=== PATIENT | male | born 1935 | race Caucasian/White ===

== ENCOUNTER 2019-05-13 12:09 | Emergency (ER) | payer MEDICARE, OTHER ==
--- NOTE | 2019-05-13 13:39 | EDM.PDOC ---
ED HPI GENERAL MEDICAL PROBLEM - General Chief Complaint: Lower Extremity Injury/Pain Stated Complaint: FELL AND HURT RT LEG Time Seen by Provider: 05/13/19 13:10 Source of Information: Reports: Patient History Limitations: Reports: No Limitations - History of Present Illness INITIAL COMMENTS - FREE TEXT/NARRATIVE: 84-year-old presents with right ankle pain after mechanical fall. 3 days ago he was walking out of his home when he slipped on the ice and fell down several steps onto the floor ground. He did have head strike when he fell. He landed on his right ankle and reports severe ongoing pain in the right ankle for the last 3 days. The pain is worse with any kind of movement, he has been hobbling around on occasion. He denies any LOC. He does have some neck pain. He is on any blood thinners. No abdominal pain or shortness of breath. Right Lower Leg Pain Score (Numeric/FACES): 6 - Related Data Allergies Allergy/AdvReac Type Severity Reaction Status Date / Time codeine Allergy Severe Fever Verified 05/13/19 12:38 Sulfa (Sulfonamide Allergy Severe Rash Verified 05/13/19 12:38 Antibiotics) Home Meds: Home Meds Aspirin 81 mg PO DAILY 05/13/19 [History] Carvedilol [Coreg] 6.25 mg PO BID 05/13/19 [History] Citalopram [Citalopram HBr] 20 mg PO DAILY 05/13/19 [History] Cyanocobalamin (Vitamin B-12) [Vitamin B-12] 500 mcg PO DAILY 05/13/19 [History] Ferrous Gluconate 324 mg PO DAILY 05/13/19 [History] Finasteride 5 mg PO DAILY 05/13/19 [History] Furosemide [Lasix] 20 mg PO BID 05/13/19 [History] Glimepiride [Amaryl] 1 mg PO WITHBREAKFAST 05/13/19 [History] Hydrocortisone [Hydrocortisone 2.5% Crm] 30 gm .XX BID PRN 05/13/19 [History] Meclizine [Antivert] 25 mg PO DAILY 05/13/19 [History] Multivitamin [Multivitamins] 1 each PO DAILY 05/13/19 [History] Nitroglycerin [Nitrostat] 0.4 mg SL ASDIRECTED 05/13/19 [History] Omeprazole 20 mg PO ACBREAKFAST 05/13/19 [History] Ondansetron HCl [Ondansetron] 4 mg PO Q8HR PRN 05/13/19 [History] Sertraline [Zoloft] 100 mg PO DAILY 05/13/19 [History] Past Medical History HEENT History: Reports: Impaired Vision Cardiovascular History: Reports: Angina, Bypass, Hypertension, Pacemaker, SOB on Exertion, Other (See Below) Other Cardiovascular History: leaking valves Respiratory History: Reports: SOB Genitourinary History: Reports: Prostate Disorder, Urinary Incontinence Musculoskeletal History: Reports: Back Pain, Chronic Neurological History: Reports: Concussion Endocrine/Metabolic History: Reports: Diabetes, Type II Dermatologic History: Reports: Other (See Below) Other Dermatologic History: dermatitis - Infectious Disease History Infectious Disease History: Reports: Chicken Pox, Measles, Mumps - Past Surgical History HEENT Surgical History: Reports: Tonsillectomy Cardiovascular Surgical History: Reports: Coronary Artery Bypass GI Surgical History: Reports: Appendectomy, Harjit Fundoplication Social & Family History - Tobacco Use Smoking Status *Q: Never Smoker - Caffeine Use Caffeine Use: Reports: Coffee - Recreational Drug Use Recreational Drug Use: No Review of Systems - Review of Systems Review Of Systems: See Below Constitutional: Reports: No Symptoms Eyes: Reports: No Symptoms Ears: Reports: No Symptoms Nose: Reports: No Symptoms Mouth/Throat: Reports: No Symptoms Respiratory: Reports: No Symptoms Cardiovascular: Reports: No Symptoms GI/Abdominal: Reports: No Symptoms Genitourinary: Reports: No Symptoms Musculoskeletal: Reports: Neck Pain, Other (ankle pain) Skin: Reports: No Symptoms Neurological: Reports: No Symptoms Psychiatric: Reports: No Symptoms ED EXAM, GENERAL - Physical Exam Exam: See Below Exam Limited By: No Limitations General Appearance: Alert, No Apparent Distress Ears: Normal External Exam Nose: Normal Inspection Throat/Mouth: Normal Inspection Head: Atraumatic, Normocephalic Neck: Normal Inspection, Tender Midline Respiratory/Chest: No Respiratory Distress, Lungs Clear Cardiovascular: Regular Rate, Rhythm GI/Abdominal: Soft, Non-Tender Back Exam: Normal Inspection Extremities: Other (left leg normal. Swollen right ankle with eccyhmosis, no deformity. Distal CSM intact) Course - Vital Signs Last Recorded V/S: Last Vital Signs Temp 36.2 C 05/13/19 12:33 Pulse 82 05/13/19 12:33 Resp 16 05/13/19 12:33 BP 138/87 05/13/19 12:33 Pulse Ox 97 05/13/19 12:33 - Re-Assessments/Exams Free Text/Narrative Re-Assessment/Exam: 84 yo presents with concerns of R ankle pain after mechanical fall down several steps 3 days ago. Swollen right ankle, has been unable to bear weight. Suspect fracture Does have midline c spine tenderness on exam. Give this and headstrike during fall will obtain CT head and neck 05/13/19 13:40 Free Text/Narrative Re-Assessment/Exam: XR R ankle shows minimally displaced distal fibula fracture, knee XR on this side negative Head and neck CT negative Extremity splinted Has crutches at home and feels comfortable/safe using these Apap/ibuprofen for pain Ortho referral placed 05/13/19 15:56 Departure - Departure Time of Disposition: 15:59 Disposition: Home, Self-Care 01 Condition: Good Clinical Impression: Fibula fracture Qualifiers: Encounter type: initial encounter Fibula location: distal Fracture type: closed Fracture morphology: unspecified fracture morphology Laterality: right Qualified Code(s): S82.831A - Other fracture of upper and lower end of right fibula, initial encounter for closed fracture - Discharge Information Referrals: PCP,None [Primary Care Provider] - Forms: ED Department Discharge Additional Instructions: Please follow-up in the orthopedic clinic next week, they should contact you to arrange this. Take Tylenol and ibuprofen for pain. Please return to the ER for worsening symptoms, particularly if your pain worsens.
--- NOTE | 2019-05-13 14:26 | CRLCR ---
Indication: Fall with ankle pain Technique: Three views right ankle Comparison: None Findings: Bones: Minimally displaced oblique fracture through the distal diaphysis of the right fibula. Joint spaces: Unremarkable. Soft tissues: Surgical kuldeep along the medial aspect of the right lower leg. Impression: Minimally displaced oblique fracture through the distal diaphysis of the right fibula. Dictated by Taylor Narvaez MD @ May 13 2019 2:18PM Signed by Dr. Taylor Narvaez @ May 13 2019 2:25PM
--- NOTE | 2019-05-13 14:52 | CRLCT ---
INDICATION: fall, neck pain CT CERVICAL SPINE WITHOUT CONTRAST TECHNIQUE: Multidetector axial CT imaging was performed through the cervical spine, without contrast. Sagittal and coronal reconstructions were generated. FINDINGS: No acute fractures are identified. Multilevel degenerative change is noted in the cervical spine, including diffuse degenerative disc disease, greatest at C5-6 and C6-7, and scattered facet joint degenerative changes. Osseous alignment is within normal limits and no subluxation is seen. Prevertebral soft tissues are unremarkable. Included portions of the airway and lung apices are within normal limits. IMPRESSION: 1. No fracture, subluxation, or other acute finding identified. 2. Cervical spondylosis, as noted above. RUBEN ANDREA MD [facility] Dictated by: Ashish Andrea MD @ 05/13/2019 14:52:16 (Electronically Signed)
--- NOTE | 2019-05-13 14:52 | CRLCT ---
INDICATION: FALL CT HEAD WITHOUT CONTRAST TECHNIQUE: Multiple axial CT images were performed through the head without intravenous contrast administration. COMPARISON: No previous studies are currently available for comparison. FINDINGS: No acute intracranial hemorrhage is identified. No extra-axial collections are evident and there is no mass effect or midline shift. There is mild diffuse age-related brain atrophy. Ventricular size and configuration are within normal limits for the patient`s age. Lloyd-white differentiation is within normal limits. There is patchy hypodensity in the periventricular white matter, a nonspecific finding which most likely reflects chronic small vessel ischemic change. Osseous structures are within normal limits and no fractures are seen. Included portions of the paranasal sinuses and mastoid air cells are normally aerated. IMPRESSION: 1. No acute intracranial abnormality identified. 2. Mild age-related brain atrophy and white matter hypodensity consistent with chronic small vessel ischemic change. RUBEN ANDREA MD [facility] Dictated by: Ashish Andrea MD @ 05/13/2019 14:51:40 (Electronically Signed)
--- NOTE | 2019-05-13 15:28 | CRLCR ---
Indication: Fall, pain Technique: Two views right knee Comparison: None Findings: Bones: Alignment is normal. No fractures or bone lesions. Mild enthesophyte formation on the superior and inferior aspects of the patella. Joint spaces: Unremarkable. Soft tissues: Unremarkable. Impression: No acute fracture or subluxation. Dictated by Taylor Narvaez MD @ May 13 2019 3:25PM Signed by Dr. Taylor Narvaez @ May 13 2019 3:25PM
[2019-05-13] MEDS ORDERED: Acetaminophen 325 MG Tab PO ONE (16:02)
[2019-05-13] MEDS ORDERED: Ibuprofen 400 MG Tab PO ONE (16:02)
== END 2019-05-13 17:08 | disposition home or self-care (01) ==
LOC: JP.ED 12:09
DX: S82.831A Other fracture of upper and lower end of right fibula, initial encounter for closed fracture (principal); E11.9 Type 2 diabetes mellitus without complications; I10 Essential (primary) hypertension; Z95.5 Presence of coronary angioplasty implant and graft; Z88.5 Allergy status to narcotic agent; Z88.2 Allergy status to sulfonamides; Z79.82 Long term (current) use of aspirin; Z79.84 Long term (current) use of oral hypoglycemic drugs; W00.9XXA Unspecified fall due to ice and snow, initial encounter; Y92.89 Other specified places as the place of occurrence of the external cause; Y93.01 Activity, walking, marching and hiking
CPT/HCPCS: 29515; 70450; 72125; 73560; 73610; 99284; A9270

== ENCOUNTER 2019-08-02 13:22 | Inpatient (IN) | payer MEDICARE, OTHER ==
--- NOTE | 2019-08-02 14:53 | EDM.PDOC ---
ED HPI GENERAL MEDICAL PROBLEM - General Chief Complaint: Respiratory Problem Stated Complaint: FEELING UNWELL, BP LOW, O2 LOW Time Seen by Provider: 08/02/19 13:40 Source of Information: Reports: Patient History Limitations: Reports: No Limitations - History of Present Illness INITIAL COMMENTS - FREE TEXT/NARRATIVE: pt arrived completley exhausted with poor exercise tolerance. He has been coughing and sob for 3-4 weeks. Onset: Gradual, Other ( 3-4 weeks. ) Duration: Hour(s): Location: Reports: Chest, Generalized Associated Symptoms: Reports: Cough, Diaphoresis, Shortness of Breath - Related Data Allergies Allergy/AdvReac Type Severity Reaction Status Date / Time codeine Allergy Severe Fever Verified 08/02/19 13:41 Sulfa (Sulfonamide Allergy Severe Rash Verified 08/02/19 13:41 Antibiotics) Home Meds: Home Meds Aspirin 81 mg PO DAILY 05/13/19 [History] Citalopram [Citalopram HBr] 20 mg PO DAILY 05/13/19 [History] Cyanocobalamin (Vitamin B-12) [Vitamin B-12] 500 mcg PO DAILY 05/13/19 [History] Ferrous Gluconate 324 mg PO DAILY 05/13/19 [History] Finasteride 5 mg PO DAILY 05/13/19 [History] Furosemide [Lasix] 20 mg PO BID 05/13/19 [History] Glimepiride [Amaryl] 1 mg PO WITHBREAKFAST 05/13/19 [History] Hydrocortisone [Hydrocortisone 2.5% Crm] 30 gm .XX BID PRN 05/13/19 [History] Meclizine [Antivert] 25 mg PO DAILY 05/13/19 [History] Multivitamin [Multivitamins] 1 each PO DAILY 05/13/19 [History] Nitroglycerin [Nitrostat] 0.4 mg SL ASDIRECTED 05/13/19 [History] Omeprazole 20 mg PO ACBREAKFAST 05/13/19 [History] Sertraline [Zoloft] 100 mg PO DAILY 05/13/19 [History] carvediloL [Coreg] 6.25 mg PO BID 05/13/19 [History] ondansetron HCL [Ondansetron] 4 mg PO Q8HR PRN 05/13/19 [History] Hydrocortisone [Hydrocortisone 2.5% Crm] 30 gm TOP BID #1 tube 05/31/19 [Rx] Isosorbide Mononitrate 30 mg PO DAILY 08/02/19 [History] Past Medical History HEENT History: Reports: Impaired Vision Cardiovascular History: Reports: Angina, Bypass, Hypertension, Pacemaker, SOB on Exertion, Other (See Below) Other Cardiovascular History: leaking valves Respiratory History: Reports: SOB Genitourinary History: Reports: Prostate Disorder, Urinary Incontinence Musculoskeletal History: Reports: Back Pain, Chronic, Fracture, Other (See Below ) Other Musculoskeletal History: R fib Fx 05/13/19 Neurological History: Reports: Concussion Psychiatric History: Reports: None Endocrine/Metabolic History: Reports: Diabetes, Type II Hematologic History: Reports: None Immunologic History: Reports: None Oncologic (Cancer) History: Reports: None Dermatologic History: Reports: Other (See Below) Other Dermatologic History: dermatitis - Infectious Disease History Infectious Disease History: Reports: Chicken Pox, Measles, Mumps - Past Surgical History Head Surgeries/Procedures: Reports: None HEENT Surgical History: Reports: Tonsillectomy Cardiovascular Surgical History: Reports: Coronary Artery Bypass GI Surgical History: Reports: Appendectomy, Harjit Fundoplication Musculoskeletal Surgical History: Reports: None Social & Family History - Tobacco Use Smoking Status *Q: Never Smoker - Caffeine Use Caffeine Use: Reports: Coffee - Recreational Drug Use Recreational Drug Use: No ED ROS GENERAL - Review of Systems Review Of Systems: See Below Constitutional: Reports: Malaise, Weakness HEENT: Reports: Other (p feels like something is caught in his throat area. ) Respiratory: Reports: Shortness of Breath, Wheezing Cardiovascular: Reports: No Symptoms, Other (pt does have a pacemaker and has had a coronary by pass. ) Endocrine: Reports: No Symptoms GI/Abdominal: Reports: No Symptoms : Reports: No Symptoms Musculoskeletal: Reports: No Symptoms Skin: Reports: No Symptoms Neurological: Reports: No Symptoms Psychiatric: Reports: No Symptoms ED EXAM, GENERAL - Physical Exam Exam: See Below Free Text/Narrative:: pt arrived with a history of marked sob and very poor exercise tolerance. Exam Limited By: No Limitations General Appearance: Alert, Anxious, Mild Distress Ears: Normal TMs Nose: Normal Inspection Throat/Mouth: Normal Inspection Head: Atraumatic Neck: Other (neck veins prominent) Respiratory/Chest: Decreased Breath Sounds, Rales, Wheezing Cardiovascular: Regular Rate, Rhythm GI/Abdominal: Soft, Non-Tender (Male) Exam: Deferred Rectal (Males) Exam: Deferred Back Exam: Normal Inspection Extremities: Other (pt has 1 plus edema. ) Neurological: Alert, Oriented, Normal Cognition Psychiatric: Normal Affect Course - Vital Signs Last Recorded V/S: Last Vital Signs Temp 35.9 C 08/02/19 13:25 Pulse 87 08/02/19 16:55 Resp 25 H 08/02/19 16:55 BP 114/77 08/02/19 16:55 Pulse Ox 98 08/02/19 16:55 - Orders/Labs/Meds Orders: Active Orders 24 hr Category Date Time Status EKG Documentation Completion [RC] ASDIRECTED Care 08/02/19 17:06 Ordered RT Aerosol Therapy [RC] ASDIRECTED Care 08/02/19 15:45 Active TROPONIN I [CHEM] Stat Lab 08/02/19 17:04 Ordered Sodium Chloride 0.9% [Saline Flush] Med 08/02/19 15:46 Active 10 ml FLUSH ASDIRECTED PRN Saline Lock Insert [OM.PC] Routine Oth 08/02/19 15:46 Ordered EKG 12 Lead [EK] Routine Ther 08/02/19 17:06 Ordered Medication Orders Sodium Chloride (Saline Flush) 10 ml FLUSH ASDIRECTED PRN PRN Reason: Keep Vein Open Last Admin: 08/02/19 16:14 Dose: 10 ml Labs: Laboratory Tests 08/02/19 08/02/19 08/02/19 Range/Units 14:27 14:27 14:27 WBC 6.6 (4.5-11.0) K/uL RBC 4.41 (4.30-5.90) M/uL Hgb 12.7 (12.0-15.0) g/dL Hct 40.5 (40.0-54.0) % MCV 92 (80-98) fL MCH 29 (27-31) pg MCHC 31 L (32-36) % Plt Count 167 (150-400) K/uL Neut % (Auto) 75 H (36-66) % Lymph % (Auto) 12 L (24-44) % [place] % (Auto) 7 H (2-6) % Eos % (Auto) 5 H (2-4) % Baso % (Auto) 1 (0-1) % D-Dimer, Quantitative 1060 H (0.0-400.0) ng/mL Sodium 140 (140-148) mmol/L Potassium 4.3 (3.6-5.2) mmol/L Chloride 103 (100-108) mmol/L Carbon Dioxide 26 (21-32) mmol/L Anion Gap 10.6 (5.0-14.0) mmol/L BUN 27 H (7-18) mg/dL Creatinine 1.6 H (0.8-1.3) mg/dL Est Cr Clr Drug Dosing 30.46 mL/min Estimated GFR (MDRD) 41 L (>60) Glucose 163 H (74-106) mg/dL Calcium 8.8 (8.5-10.1) mg/dL Total Bilirubin 1.0 (0.2-1.0) mg/dL AST 35 (15-37) U/L ALT 43 (12-78) U/L Alkaline Phosphatase 100 (46-116) U/L NT-Pro-B Natriuret Pep (5-450) pg/mL Total Protein 7.0 (6.4-8.2) g/dL Albumin 3.3 L (3.4-5.0) g/dL Globulin 3.7 H (2.3-3.5) g/dL Albumin/Globulin Ratio 0.9 L (1.2-2.2) TSH, Ultra Sensitive (0.358-3.740) uIU/mL Urine Color (YELLOW) Urine Appearance (CLEAR) Urine pH (5.0-8.0) Ur Specific Silver (1.008-1.030) Urine Protein (NEGATIVE) mg/dL Urine Glucose (UA) (NEGATIVE) mg/dL Urine Ketones (NEGATIVE) mg/dL Urine Occult Blood (NEGATIVE) Urine Nitrite (NEGATIVE) Urine Bilirubin (NEGATIVE) Urine Urobilinogen (0.2-1.0) EU/dL Ur Leukocyte Esterase (NEGATIVE) Urine RBC (0-5) Urine WBC (0-5) Ur Epithelial Cells Amorphous Sediment Urine Bacteria Urine Mucus 08/02/19 08/02/19 08/02/19 Range/Units 14:52 15:28 15:44 WBC (4.5-11.0) K/uL RBC (4.30-5.90) M/uL Hgb (12.0-15.0) g/dL Hct (40.0-54.0) % MCV (80-98) fL MCH (27-31) pg MCHC (32-36) % Plt Count (150-400) K/uL Neut % (Auto) (36-66) % Lymph % (Auto) (24-44) % [place] % (Auto) (2-6) % Eos % (Auto) (2-4) % Baso % (Auto) (0-1) % D-Dimer, Quantitative (0.0-400.0) ng/mL Sodium (140-148) mmol/L Potassium (3.6-5.2) mmol/L Chloride (100-108) mmol/L Carbon Dioxide (21-32) mmol/L Anion Gap (5.0-14.0) mmol/L BUN (7-18) mg/dL Creatinine (0.8-1.3) mg/dL Est Cr Clr Drug Dosing mL/min Estimated GFR (MDRD) (>60) Glucose (74-106) mg/dL Calcium (8.5-10.1) mg/dL Total Bilirubin (0.2-1.0) mg/dL AST (15-37) U/L ALT (12-78) U/L Alkaline Phosphatase (46-116) U/L NT-Pro-B Natriuret Pep 2708 H (5-450) pg/mL Total Protein (6.4-8.2) g/dL Albumin (3.4-5.0) g/dL Globulin (2.3-3.5) g/dL Albumin/Globulin Ratio (1.2-2.2) TSH, Ultra Sensitive 2.741 (0.358-3.740) uIU/mL Urine Color Yellow (YELLOW) Urine Appearance Clear (CLEAR) Urine pH 5.0 (5.0-8.0) Ur Specific Silver 1.020 (1.008-1.030) Urine Protein Negative (NEGATIVE) mg/dL Urine Glucose (UA) Negative (NEGATIVE) mg/dL Urine Ketones Negative (NEGATIVE) mg/dL Urine Occult Blood Negative (NEGATIVE) Urine Nitrite Negative (NEGATIVE) Urine Bilirubin Negative (NEGATIVE) Urine Urobilinogen 0.2 (0.2-1.0) EU/dL Ur Leukocyte Esterase Negative (NEGATIVE) Urine RBC 0-5 (0-5) Urine WBC 0-5 (0-5) Ur Epithelial Cells Few Amorphous Sediment Not seen Urine Bacteria Not seen Urine Mucus Few Meds: Medications Generic Name Dose Route Start Last Admin Trade Name Freq PRN Reason Stop Dose Admin Sodium Chloride 10 ml 08/02/19 15:46 08/02/19 16:14 Saline Flush FLUSH 10 ml ASDIRECTED PRN Administration Keep Vein Open Discontinued Medications Generic Name Dose Route Start Last Admin Trade Name Freq PRN Reason Stop Dose Admin Albuterol 2.5 mg 08/02/19 15:45 08/02/19 16:13 Proventil Neb Soln NEB 08/02/19 15:46 2.5 mg ONETIME ONE Administration Furosemide 40 mg 08/02/19 15:46 08/02/19 16:13 Lasix IVPUSH 08/02/19 15:47 40 mg ONETIME ONE Administration - Re-Assessments/Exams Free Text/Narrative Re-Assessment/Exam: 08/02/19 17:11 pt has a elevated bnp. He was given lasix. he has a gallop when he is listened to. He has a normal wbc. Departure - Departure Time of Disposition: 17:15 Disposition: Admitted As Inpatient 65 Condition: Fair Clinical Impression: Fluid overload, Elevated d-dimer, Weakness - Discharge Information Referrals: PCP,None [Primary Care Provider] - Forms: ED Department Discharge Care Plan Goals: admit to Dr Zarate. Sepsis Event Note - Evaluation Sepsis Screening Result: No Definite Risk - Focused Exam Vital Signs: Vital Signs Temp Pulse Pulse Resp BP Pulse Ox 08/02/19 16:55 87 25 H 114/77 98 08/02/19 16:09 84 26 H 125/87 89 L 08/02/19 15:29 96 32 H 137/84 92 L 08/02/19 13:25 35.9 C 90 20 105/70 94 L Date Exam was Performed: 08/02/19 Time Exam was Performed: 17:06 - My Orders Last 24 Hours: My Active Orders 08/02/19 15:45 RT Aerosol Therapy [RC] ASDIRECTED 08/02/19 15:46 Sodium Chloride 0.9% [Saline Flush] 10 ml FLUSH ASDIRECTED PRN Saline Lock Insert [OM.PC] Routine 08/02/19 17:04 TROPONIN I [CHEM] Stat 08/02/19 17:06 EKG Documentation Completion [RC] ASDIRECTED EKG 12 Lead [EK] Routine - Assessment/Plan Last 24 Hours: My Active Orders 08/02/19 15:45 RT Aerosol Therapy [RC] ASDIRECTED 08/02/19 15:46 Sodium Chloride 0.9% [Saline Flush] 10 ml FLUSH ASDIRECTED PRN Saline Lock Insert [OM.PC] Routine 08/02/19 17:04 TROPONIN I [CHEM] Stat 08/02/19 17:06 EKG Documentation Completion [RC] ASDIRECTED EKG 12 Lead [EK] Routine
[2019-08-02] MEDS ORDERED: Albuterol 0.083% 2.5 MG/3 ML Neb Soln NEB ONE (15:45)
[2019-08-02] MEDS ORDERED: Sodium Chloride 0.9% 10 ML Syringe FLUSH PRN (15:46)
[2019-08-02] MEDS ORDERED: Furosemide 40 MG/4 ML VIAL IVPUSH ONE (15:46)
--- NOTE | 2019-08-02 16:00 | CRLCR ---
INDICATION: Shortness of breath and cough TECHNIQUE: Chest 2 views. COMPARISON: None FINDINGS: Cardiovascular and mediastinum: Heart size and vasculature are normal in caliber and appearance. Mediastinum is within normal limits. Sternotomy wires and left-sided transvenous pacer device. Lungs and pleural spaces: Lungs are clear. No sign of infiltrate or mass. No sign of pleural effusion. No pneumothorax. Bones and soft tissues: No significant findings. IMPRESSION: Unremarkable chest. Dictated by Virgil Gracia MD @ 08/02/2019 3:58:27 PM Dictated by: Virgil Gracia MD @ 08/02/2019 15:58:31 (Electronically Signed)
--- NOTE | 2019-08-02 18:30 | PCM.HP.2 ---
H&P History of Present Illness - General Date of Service: 08/02/19 Admit Problem/Dx: Admission Diagnosis/Problem Admission Diagnosis/Problem CHF, Congestive heart failure Source of Information: Patient, Provider History Limitations: Reports: No Limitations - History of Present Illness Initial Comments - Free Text/Narative: CC: I keep coughing HPI: Harpreet presents to the emergency room today from the orthopedic clinic with concerns of progressive shortness of breath, cough and weakness. He reports a cough of several months duration that he thought was may be related to dust in his house but after having most of the dust removed he continues to cough. He has had progressive dyspnea with exertion and is now short of breath with most any activity. He reports orthopnea. He does have some chest tightness which happens both at rest and with activity. This is relieved by nitroglycerin spray. He has been using the nitroglycerin several times per week over the past month. He does not report actual chest pain, he just feels tight in the chest. He has noticed mild lower extremity edema which is a little worse recently. The right leg is more swollen than the left. No fevers or chills. His appetite and energy are decreased compared to where things were a few months ago. His weight has been relatively stable. No nausea, abdominal pain or change in bowel habits. He does have occasional incontinence that he blames on his enlarged prostate. He has had progressive weakness and increasing difficulty performing ADLs though he is still able to function at home. Work-up in the emergency room revealed stage III chronic kidney disease but otherwise labs were fairly unremarkable. Examination remarkable for concern regarding congestive heart failure. He has received a nebulizer and furosemide. He will be admitted for further management. - Related Data Allergies/Adverse Reactions: Allergies Allergy/AdvReac Type Severity Reaction Status Date / Time codeine Allergy Severe Fever Verified 08/02/19 13:41 Sulfa (Sulfonamide Allergy Severe Rash Verified 08/02/19 13:41 Antibiotics) Home Medications: Home Meds Aspirin 81 mg PO DAILY 05/13/19 [History] Cyanocobalamin (Vitamin B-12) [Vitamin B-12] 500 mcg PO DAILY 05/13/19 [History] Ferrous Gluconate 324 mg PO DAILY 05/13/19 [History] Finasteride 5 mg PO DAILY 05/13/19 [History] Furosemide [Lasix] 20 mg PO BID 05/13/19 [History] Glimepiride [Amaryl] 1 mg PO WITHBREAKFAST 05/13/19 [History] Hydrocortisone [Hydrocortisone 2.5% Crm] 30 gm .XX BID PRN 05/13/19 [History] Meclizine [Antivert] 25 mg PO DAILY 05/13/19 [History] Multivitamin [Multivitamins] 1 each PO DAILY 05/13/19 [History] Nitroglycerin [Nitrostat] 0.4 mg SL ASDIRECTED 05/13/19 [History] Omeprazole 20 mg PO ACBREAKFAST 05/13/19 [History] Sertraline [Zoloft] 100 mg PO DAILY 05/13/19 [History] carvediloL [Coreg] 6.25 mg PO BID 05/13/19 [History] ondansetron HCL [Ondansetron] 4 mg PO Q8HR PRN 05/13/19 [History] Hydrocortisone [Hydrocortisone 2.5% Crm] 30 gm TOP BID #1 tube 05/31/19 [Rx] Isosorbide Mononitrate 30 mg PO DAILY 08/02/19 [History] Past Medical History HEENT History: Reports: Impaired Vision Cardiovascular History: Reports: Angina, Bypass, Hypertension, Pacemaker, SOB on Exertion, Other (See Below) Other Cardiovascular History: leaking valves Respiratory History: Reports: SOB Genitourinary History: Reports: Prostate Disorder, Urinary Incontinence Musculoskeletal History: Reports: Back Pain, Chronic, Fracture, Other (See Below ) Other Musculoskeletal History: R fib Fx 05/13/19 Neurological History: Reports: Concussion Psychiatric History: Reports: None Endocrine/Metabolic History: Reports: Diabetes, Type II Hematologic History: Reports: None Immunologic History: Reports: None Oncologic (Cancer) History: Reports: None Dermatologic History: Reports: Other (See Below) Other Dermatologic History: dermatitis - Infectious Disease History Infectious Disease History: Reports: Chicken Pox, Measles, Mumps - Past Surgical History Head Surgeries/Procedures: Reports: None HEENT Surgical History: Reports: Tonsillectomy Cardiovascular Surgical History: Reports: Coronary Artery Bypass GI Surgical History: Reports: Appendectomy, Harjit Fundoplication Musculoskeletal Surgical History: Reports: None Social & Family History - Family History Cardiac: Reports: DC (father in his 50's) - Tobacco Use Smoking Status *Q: Never Smoker - Caffeine Use Caffeine Use: Reports: Coffee - Recreational Drug Use Recreational Drug Use: No H&P Review of Systems - Review of Systems: Review Of Systems: See Below Free Text/Narrative: A complete 12 point review of systems was obtained. Pertinent positives and negatives are noted in the history of present illness. All other systems were reviewed and were negative except as noted. Exam - Exam Exam: See Below - Vital Signs Vital Signs: Last Vital Signs Temp 35.9 C 08/02/19 13:25 Pulse 85 08/02/19 17:44 Resp 27 H 08/02/19 17:44 BP 123/81 08/02/19 17:44 Pulse Ox 89 L 08/02/19 17:44 Weight: 83.915 kg - Exam Quality Assessment: No: Supplemental Oxygen General: Alert, Oriented, Cooperative. No: Mild Distress HEENT: Conjunctiva Clear, Mucosa Moist & [place], Scleral Icterus Neck: Supple, Trachea Midline, JVD. No: Lymphadenopathy Lungs: Clear to Auscultation, Normal Respiratory Effort. No: Crackles, Wheezing Cardiovascular: Regular Rate, Regular Rhythm, Systolic Murmur, Gallop/S3 GI/Abdominal Exam: Normal Bowel Sounds, Soft, Non-Tender, No Distention, No Mass Back Exam: Normal Inspection, Full Range of Motion Extremities: Pedal Edema (mild edema both legs R>L). No: Ulysses's Sign, Increased Warmth Peripheral Pulses: 2+: Dorsalis Pedis (L), Dorsalis Pedis (R) Skin: Warm, Dry Neuro Extensive - Mental Status: Alert, Oriented x3, Nl Response to Commands Neuro Extensive - Motor, Sensory, Reflexes: No: Dysarthria, Abnormal Motor, Tremor Psychiatric: Alert, Normal Affect - Patient Data Lab Results Last 24 hrs: Laboratory Results - last 24 hr 08/02/19 08/02/19 08/02/19 Range/Units 14:27 14:27 14:27 WBC 6.6 (4.5-11.0) K/uL RBC 4.41 (4.30-5.90) M/uL Hgb 12.7 (12.0-15.0) g/dL Hct 40.5 (40.0-54.0) % MCV 92 (80-98) fL MCH 29 (27-31) pg MCHC 31 L (32-36) % Plt Count 167 (150-400) K/uL Neut % (Auto) 75 H (36-66) % Lymph % (Auto) 12 L (24-44) % [place] % (Auto) 7 H (2-6) % Eos % (Auto) 5 H (2-4) % Baso % (Auto) 1 (0-1) % D-Dimer, Quantitative 1060 H (0.0-400.0) ng/mL Sodium 140 (140-148) mmol/L Potassium 4.3 (3.6-5.2) mmol/L Chloride 103 (100-108) mmol/L Carbon Dioxide 26 (21-32) mmol/L Anion Gap 10.6 (5.0-14.0) mmol/L BUN 27 H (7-18) mg/dL Creatinine 1.6 H (0.8-1.3) mg/dL Est Cr Clr Drug Dosing 30.46 mL/min Estimated GFR (MDRD) 41 L (>60) Glucose 163 H (74-106) mg/dL Calcium 8.8 (8.5-10.1) mg/dL Total Bilirubin 1.0 (0.2-1.0) mg/dL AST 35 (15-37) U/L ALT 43 (12-78) U/L Alkaline Phosphatase 100 (46-116) U/L Troponin I (0.000-0.056) ng/mL NT-Pro-B Natriuret Pep (5-450) pg/mL Total Protein 7.0 (6.4-8.2) g/dL Albumin 3.3 L (3.4-5.0) g/dL Globulin 3.7 H (2.3-3.5) g/dL Albumin/Globulin Ratio 0.9 L (1.2-2.2) TSH, Ultra Sensitive (0.358-3.740) uIU/mL Urine Color (YELLOW) Urine Appearance (CLEAR) Urine pH (5.0-8.0) Ur Specific [place] (1.008-1.030) Urine Protein (NEGATIVE) mg/dL Urine Glucose (UA) (NEGATIVE) mg/dL Urine Ketones (NEGATIVE) mg/dL Urine Occult Blood (NEGATIVE) Urine Nitrite (NEGATIVE) Urine Bilirubin (NEGATIVE) Urine Urobilinogen (0.2-1.0) EU/dL Ur Leukocyte Esterase (NEGATIVE) Urine RBC (0-5) Urine WBC (0-5) Ur Epithelial Cells Amorphous Sediment Urine Bacteria Urine Mucus 08/02/19 08/02/19 08/02/19 Range/Units 14:27 14:52 15:28 WBC (4.5-11.0) K/uL RBC (4.30-5.90) M/uL Hgb (12.0-15.0) g/dL Hct (40.0-54.0) % MCV (80-98) fL MCH (27-31) pg MCHC (32-36) % Plt Count (150-400) K/uL Neut % (Auto) (36-66) % Lymph % (Auto) (24-44) % [place] % (Auto) (2-6) % Eos % (Auto) (2-4) % Baso % (Auto) (0-1) % D-Dimer, Quantitative (0.0-400.0) ng/mL Sodium (140-148) mmol/L Potassium (3.6-5.2) mmol/L Chloride (100-108) mmol/L Carbon Dioxide (21-32) mmol/L Anion Gap (5.0-14.0) mmol/L BUN (7-18) mg/dL Creatinine (0.8-1.3) mg/dL Est Cr Clr Drug Dosing mL/min Estimated GFR (MDRD) (>60) Glucose (74-106) mg/dL Calcium (8.5-10.1) mg/dL Total Bilirubin (0.2-1.0) mg/dL AST (15-37) U/L ALT (12-78) U/L Alkaline Phosphatase (46-116) U/L Troponin I < 0.017 (0.000-0.056) ng/mL NT-Pro-B Natriuret Pep 2708 H (5-450) pg/mL Total Protein (6.4-8.2) g/dL Albumin (3.4-5.0) g/dL Globulin (2.3-3.5) g/dL Albumin/Globulin Ratio (1.2-2.2) TSH, Ultra Sensitive (0.358-3.740) uIU/mL Urine Color Yellow (YELLOW) Urine Appearance Clear (CLEAR) Urine pH 5.0 (5.0-8.0) Ur Specific [place] 1.020 (1.008-1.030) Urine Protein Negative (NEGATIVE) mg/dL Urine Glucose (UA) Negative (NEGATIVE) mg/dL Urine Ketones Negative (NEGATIVE) mg/dL Urine Occult Blood Negative (NEGATIVE) Urine Nitrite Negative (NEGATIVE) Urine Bilirubin Negative (NEGATIVE) Urine Urobilinogen 0.2 (0.2-1.0) EU/dL Ur Leukocyte Esterase Negative (NEGATIVE) Urine RBC 0-5 (0-5) Urine WBC 0-5 (0-5) Ur Epithelial Cells Few Amorphous Sediment Not seen Urine Bacteria Not seen Urine Mucus Few 08/02/19 Range/Units 15:44 WBC (4.5-11.0) K/uL RBC (4.30-5.90) M/uL Hgb (12.0-15.0) g/dL Hct (40.0-54.0) % MCV (80-98) fL MCH (27-31) pg MCHC (32-36) % Plt Count (150-400) K/uL Neut % (Auto) (36-66) % Lymph % (Auto) (24-44) % [place] % (Auto) (2-6) % Eos % (Auto) (2-4) % Baso % (Auto) (0-1) % D-Dimer, Quantitative (0.0-400.0) ng/mL Sodium (140-148) mmol/L Potassium (3.6-5.2) mmol/L Chloride (100-108) mmol/L Carbon Dioxide (21-32) mmol/L Anion Gap (5.0-14.0) mmol/L BUN (7-18) mg/dL Creatinine (0.8-1.3) mg/dL Est Cr Clr Drug Dosing mL/min Estimated GFR (MDRD) (>60) Glucose (74-106) mg/dL Calcium (8.5-10.1) mg/dL Total Bilirubin (0.2-1.0) mg/dL AST (15-37) U/L ALT (12-78) U/L Alkaline Phosphatase (46-116) U/L Troponin I (0.000-0.056) ng/mL NT-Pro-B Natriuret Pep (5-450) pg/mL Total Protein (6.4-8.2) g/dL Albumin (3.4-5.0) g/dL Globulin (2.3-3.5) g/dL Albumin/Globulin Ratio (1.2-2.2) TSH, Ultra Sensitive 2.741 (0.358-3.740) uIU/mL Urine Color (YELLOW) Urine Appearance (CLEAR) Urine pH (5.0-8.0) Ur Specific [place] (1.008-1.030) Urine Protein (NEGATIVE) mg/dL Urine Glucose (UA) (NEGATIVE) mg/dL Urine Ketones (NEGATIVE) mg/dL Urine Occult Blood (NEGATIVE) Urine Nitrite (NEGATIVE) Urine Bilirubin (NEGATIVE) Urine Urobilinogen (0.2-1.0) EU/dL Ur Leukocyte Esterase (NEGATIVE) Urine RBC (0-5) Urine WBC (0-5) Ur Epithelial Cells Amorphous Sediment Urine Bacteria Urine Mucus Result Diagrams: 08/02/19 14:27 08/02/19 14:27 Imaging Impressions Last 24 hrs: CXR-images personally reviewed-lungs clear with no mass, infiltrate or effusion. Left sided pacer. Sternotomy wires. EKG INTERPRETATION EKG Date: 08/02/19 Rhythm: Other (ventricular paced) Rate (Beats/Min): 94 [place]: LAD-Left [place] Deviation P-Wave: Absent QRS: Normal ST-T: Normal QT: Normal Sepsis Event Note - Evaluation Sepsis Screening Result: No Definite Risk - Focused Exam Vital Signs: Vital Signs Temp Pulse Pulse Resp BP Pulse Ox 08/02/19 17:44 85 27 H 123/81 89 L 08/02/19 16:55 87 25 H 114/77 98 08/02/19 16:09 84 26 H 125/87 89 L 08/02/19 15:29 96 32 H 137/84 92 L 08/02/19 13:25 35.9 C 90 20 105/70 94 L Date Exam was Performed: 08/02/19 Time Exam was Performed: 18:36 *Q Meaningful Use (ADM) - VTE Risk Assess *Q Each Risk Factor Represents 1 Point: Swollen Legs, Current, Obesity ( BMI > 25 kg/m2), Congestive heart failure (CHF) Total Score 1 Point Risk Factors: 3 Each Risk Factor Represents 2 Points: None Total Score 2 Point Risk Factors: 0 Each Risk Factor Represents 3 Points: Age 75 Years or Greater Total Score 3 Point Risk Factors: 3 Each Risk Factor Represents 5 Points: None Total Score 5 Point Risk Factors: 0 Venous Thromboembolism Risk Factor Score *Q: 6 - Problem List (1) CHF (congestive heart failure), NYHA class III SNOMED Code(s): 609557783, 883244588 ICD Code: I50.9 - HEART FAILURE, UNSPECIFIED Status: Acute Current Visit : Yes Qualifiers: Congestive heart failure type: unspecified Qualified Code(s): I50.9 - Heart failure, unspecified (2) CKD (chronic kidney disease), stage III SNOMED Code(s): 712037480 ICD Code: N18.3 - CHRONIC KIDNEY DISEASE, STAGE 3 (MODERATE) Status: Chronic Current Visit: Yes (3) Diabetes mellitus type II, controlled SNOMED Code(s): 85736380, 952091377 ICD Code: E11.9 - TYPE 2 DIABETES MELLITUS WITHOUT COMPLICATIONS Status: Chronic Current Visit: Yes Qualifiers: Diabetes mellitus mcfp insulin use: without mcfp use Diabetes mellitus complication status: with unspecified complications Qualified Code(s) : E11.8 - Type 2 diabetes mellitus with unspecified complications (4) CAD (coronary artery disease) SNOMED Code(s): 11216235 ICD Code: I25.10 - ATHSCL HEART DISEASE OF [place] CORONARY ARTERY W/O ANG PCTRS Status: Chronic Current Visit: Yes Qualifiers: Coronary Disease-Associated Artery/Lesion type: [place] artery [place] vs. transplanted heart: [place] heart Associated angina: with stable angina Qualified Code(s): I25.118 - Atherosclerotic heart disease of [place] coronary artery with other forms of angina pectoris (5) Elevated d-dimer SNOMED Code(s): 862714207 ICD Code: R79.89 - OTHER SPECIFIED ABNORMAL FINDINGS OF BLOOD CHEMISTRY Status: Acute Current Visit: Yes Problem List Initiated/Reviewed/Updated: Yes Orders Last 24hrs: Active Orders 24 hr Category Date Time Status Patient Status Manage Transfer [TRANSFER] Routine ADT 08/02/19 18:18 Ordered EKG Documentation Completion [RC] ASDIRECTED Care 08/02/19 17:06 Active RT Aerosol Therapy [RC] ASDIRECTED Care 08/02/19 15:45 Active Sodium Chloride 0.9% [Saline Flush] Med 08/02/19 15:46 Active 10 ml FLUSH ASDIRECTED PRN Saline Lock Insert [OM.PC] Routine Oth 08/02/19 15:46 Ordered Resuscitation Status Routine Resus Stat 08/02/19 18:19 Ordered EKG 12 Lead [EK] Routine Ther 08/02/19 17:06 Ordered Medication Orders Sodium Chloride (Saline Flush) 10 ml FLUSH ASDIRECTED PRN PRN Reason: Keep Vein Open Last Admin: 08/02/19 16:14 Dose: 10 ml Assessment/Plan Comment:: ASSESSMENT AND PLAN - Congestive heart failure-subacute exacerbation. Unknown ejection fraction. Patient does report a history of a "leaky valve". Progressive symptoms of dyspnea and orthopnea as well as some lower extremity edema. Also fatigue. He is not hypoxic but is borderline with his oxygenation and is mildly tachypneic. No evidence for infection. He has received furosemide in the emergency room. -Repeat furosemide dosing in the morning -Continue carvedilol -Supplement oxygen if needed -Echocardiogram when available Coronary artery disease-history of CABG about 20 years ago. He does report some recent chest tightness but I suspect this may be related to his congestive heart failure. Troponin was negative. -Continue medical management -Consider increasing isosorbide if blood pressure will allow Elevated [id number] most consistent with CHF but cannot completely rule out pulmonary embolism. Unable to do a CT scan because of his kidney function. -Lower extremity ultrasound to rule out DVT on the right Type 2 diabetes mellitus-controlled with on oral medication. Stage III chronic kidney disease-Baseline creatinine unknown at this time. Maintenance issues - - DVT prophylaxis -KATIE stockings - GI prophylaxis -not indicated - Nutrition -consistent carbohydrates - Reza catheter -not indicated CODE STATUS -DNR/DNI Admission justification -this patient will be admitted for inpatient services and is medically appropriate meeting medical necessity for inpatient admission as outlined in my documentation. I reasonably expect the patient will require inpatient services that span a period time over 2 midnights. I reasonably expect this patient to be discharged or transferred within 96 hours [facility]. Disposition -I would anticipate discharge home, possibly with home care, after the hospital stay Primary care physician -MD Denzel Epstein M.D. - Mortality Measure Prognosis:: Good
[2019-08-02] MEDS ORDERED: Acetaminophen 325 MG Tab PO PRN (19:09)
[2019-08-02] MEDS ORDERED: Albuterol 0.083% 2.5 MG/3 ML Neb Soln NEB PRN (19:09)
[2019-08-02] MEDS ORDERED: Magnesium Hydroxide 400 MG/5 ML Susp 30 ML Cup PO PRN (19:09)
[2019-08-02] MEDS ORDERED: Ondansetron 4 MG/2 ML SDV IV PRN (19:09)
[2019-08-02] MEDS ORDERED: LORazepam 2 MG/ML SDV IVPUSH PRN (19:09)
[2019-08-02] MEDS ORDERED: Ondansetron 4 MG Tab.DIS PO PRN (19:09)
[2019-08-02] MEDS: Melatonin 3 MG Tab PO SCH (20:41)
[2019-08-02] MEDS: Carvedilol 6.25 MG Tab PO SCH (20:41)
[2019-08-03] MEDS ORDERED: Furosemide 40 MG/4 ML VIAL IVPUSH ONE ×2 (08:00→15:00)
[2019-08-03] MEDS: Glimepiride 2 MG Tab PO SCH (08:14)
[2019-08-03] MEDS: Pantoprazole 40 MG Tab.CR PO SCH (08:14)
[2019-08-03] MEDS: Carvedilol 6.25 MG Tab PO SCH ×2 (08:16→17:56)
[2019-08-03] MEDS: Aspirin 81 MG Tab.Chew PO SCH (09:31)
[2019-08-03] MEDS: Isosorbide Mononitrate 30 MG Tab.ER PO SCH (09:32)
[2019-08-03] MEDS: Potassium Chloride 20 MEQ Tab.ER PO SCH ×2 (09:33→20:22)
[2019-08-03] MEDS: Finasteride 5 MG Tab PO SCH (09:35)
[2019-08-03] MEDS: Cyanocobalamin (Vitamin B12) 1,000 MCG Tab PO SCH (09:35)
[2019-08-03] MEDS: Sertraline 50 MG Tab PO SCH (09:36)
--- NOTE | 2019-08-03 11:50 | PCM.PN ---
- General Info Date of Service: 08/03/19 Subjective Update: No acute events overnight. Good response to diuresis yesterday. Shortness of breath is better. Cough is a little better. Strength is better. He did not require any supplemental oxygen. Chest tightness has improved since yesterday. Appetite and energy are both better today. Functional Status: Reports: Pain Controlled, Tolerating Diet - Review of Systems Pulmonary: Reports: Shortness of Breath Cardiovascular: Reports: Edema - Patient Data Vitals - Most Recent: Last Vital Signs Temp 36.3 C 08/03/19 11:10 Pulse 90 08/03/19 11:10 Resp 24 H 08/03/19 11:10 BP 93/68 08/03/19 11:10 Pulse Ox 98 08/03/19 11:10 Weight - Most Recent: 81.012 kg I&O - Last 24 Hours: Intake & Output 08/02/19 08/03/19 08/03/19 22:59 06:59 14:59 Intake Total 240 480 Output Total 275 220 Balance -35 260 Lab Results Last 24 Hours: Laboratory Results - last 24 hr 08/02/19 08/02/19 08/02/19 Range/Units 14:27 14:27 14:27 WBC 6.6 (4.5-11.0) K/uL RBC 4.41 (4.30-5.90) M/uL Hgb 12.7 (12.0-15.0) g/dL Hct 40.5 (40.0-54.0) % MCV 92 (80-98) fL MCH 29 (27-31) pg MCHC 31 L (32-36) % Plt Count 167 (150-400) K/uL Neut % (Auto) 75 H (36-66) % Lymph % (Auto) 12 L (24-44) % [place] % (Auto) 7 H (2-6) % Eos % (Auto) 5 H (2-4) % Baso % (Auto) 1 (0-1) % D-Dimer, Quantitative 1060 H (0.0-400.0) ng/mL Sodium 140 (140-148) mmol/L Potassium 4.3 (3.6-5.2) mmol/L Chloride 103 (100-108) mmol/L Carbon Dioxide 26 (21-32) mmol/L Anion Gap 10.6 (5.0-14.0) mmol/L BUN 27 H (7-18) mg/dL Creatinine 1.6 H (0.8-1.3) mg/dL Est Cr Clr Drug Dosing 30.46 mL/min Estimated GFR (MDRD) 41 L (>60) Glucose 163 H (74-106) mg/dL Calcium 8.8 (8.5-10.1) mg/dL Magnesium (1.8-2.4) mg/dL Total Bilirubin 1.0 (0.2-1.0) mg/dL AST 35 (15-37) U/L ALT 43 (12-78) U/L Alkaline Phosphatase 100 (46-116) U/L Troponin I (0.000-0.056) ng/mL NT-Pro-B Natriuret Pep (5-450) pg/mL Total Protein 7.0 (6.4-8.2) g/dL Albumin 3.3 L (3.4-5.0) g/dL Globulin 3.7 H (2.3-3.5) g/dL Albumin/Globulin Ratio 0.9 L (1.2-2.2) TSH, Ultra Sensitive (0.358-3.740) uIU/mL Urine Color (YELLOW) Urine Appearance (CLEAR) Urine pH (5.0-8.0) Ur Specific [place] (1.008-1.030) Urine Protein (NEGATIVE) mg/dL Urine Glucose (UA) (NEGATIVE) mg/dL Urine Ketones (NEGATIVE) mg/dL Urine Occult Blood (NEGATIVE) Urine Nitrite (NEGATIVE) Urine Bilirubin (NEGATIVE) Urine Urobilinogen (0.2-1.0) EU/dL Ur Leukocyte Esterase (NEGATIVE) Urine RBC (0-5) Urine WBC (0-5) Ur Epithelial Cells Amorphous Sediment Urine Bacteria Urine Mucus 08/02/19 08/02/19 08/02/19 Range/Units 14:27 14:52 15:28 WBC (4.5-11.0) K/uL RBC (4.30-5.90) M/uL Hgb (12.0-15.0) g/dL Hct (40.0-54.0) % MCV (80-98) fL MCH (27-31) pg MCHC (32-36) % Plt Count (150-400) K/uL Neut % (Auto) (36-66) % Lymph % (Auto) (24-44) % [place] % (Auto) (2-6) % Eos % (Auto) (2-4) % Baso % (Auto) (0-1) % D-Dimer, Quantitative (0.0-400.0) ng/mL Sodium (140-148) mmol/L Potassium (3.6-5.2) mmol/L Chloride (100-108) mmol/L Carbon Dioxide (21-32) mmol/L Anion Gap (5.0-14.0) mmol/L BUN (7-18) mg/dL Creatinine (0.8-1.3) mg/dL Est Cr Clr Drug Dosing mL/min Estimated GFR (MDRD) (>60) Glucose (74-106) mg/dL Calcium (8.5-10.1) mg/dL Magnesium (1.8-2.4) mg/dL Total Bilirubin (0.2-1.0) mg/dL AST (15-37) U/L ALT (12-78) U/L Alkaline Phosphatase (46-116) U/L Troponin I < 0.017 (0.000-0.056) ng/mL NT-Pro-B Natriuret Pep 2708 H (5-450) pg/mL Total Protein (6.4-8.2) g/dL Albumin (3.4-5.0) g/dL Globulin (2.3-3.5) g/dL Albumin/Globulin Ratio (1.2-2.2) TSH, Ultra Sensitive (0.358-3.740) uIU/mL Urine Color Yellow (YELLOW) Urine Appearance Clear (CLEAR) Urine pH 5.0 (5.0-8.0) Ur Specific [place] 1.020 (1.008-1.030) Urine Protein Negative (NEGATIVE) mg/dL Urine Glucose (UA) Negative (NEGATIVE) mg/dL Urine Ketones Negative (NEGATIVE) mg/dL Urine Occult Blood Negative (NEGATIVE) Urine Nitrite Negative (NEGATIVE) Urine Bilirubin Negative (NEGATIVE) Urine Urobilinogen 0.2 (0.2-1.0) EU/dL Ur Leukocyte Esterase Negative (NEGATIVE) Urine RBC 0-5 (0-5) Urine WBC 0-5 (0-5) Ur Epithelial Cells Few Amorphous Sediment Not seen Urine Bacteria Not seen Urine Mucus Few 08/02/19 08/03/19 Range/Units 15:44 02:54 WBC (4.5-11.0) K/uL RBC (4.30-5.90) M/uL Hgb (12.0-15.0) g/dL Hct (40.0-54.0) % MCV (80-98) fL MCH (27-31) pg MCHC (32-36) % Plt Count (150-400) K/uL Neut % (Auto) (36-66) % Lymph % (Auto) (24-44) % [place] % (Auto) (2-6) % Eos % (Auto) (2-4) % Baso % (Auto) (0-1) % D-Dimer, Quantitative (0.0-400.0) ng/mL Sodium 141 (140-148) mmol/L Potassium 3.7 (3.6-5.2) mmol/L Chloride 104 (100-108) mmol/L Carbon Dioxide 26 (21-32) mmol/L Anion Gap 10.6 (5.0-14.0) mmol/L BUN 26 H (7-18) mg/dL Creatinine 1.5 H (0.8-1.3) mg/dL Est Cr Clr Drug Dosing 32.49 mL/min Estimated GFR (MDRD) 44 L (>60) Glucose 110 H (74-106) mg/dL Calcium 8.7 (8.5-10.1) mg/dL Magnesium 1.9 (1.8-2.4) mg/dL Total Bilirubin (0.2-1.0) mg/dL AST (15-37) U/L ALT (12-78) U/L Alkaline Phosphatase (46-116) U/L Troponin I (0.000-0.056) ng/mL NT-Pro-B Natriuret Pep (5-450) pg/mL Total Protein (6.4-8.2) g/dL Albumin (3.4-5.0) g/dL Globulin (2.3-3.5) g/dL Albumin/Globulin Ratio (1.2-2.2) TSH, Ultra Sensitive 2.741 (0.358-3.740) uIU/mL Urine Color (YELLOW) Urine Appearance (CLEAR) Urine pH (5.0-8.0) Ur Specific [place] (1.008-1.030) Urine Protein (NEGATIVE) mg/dL Urine Glucose (UA) (NEGATIVE) mg/dL Urine Ketones (NEGATIVE) mg/dL Urine Occult Blood (NEGATIVE) Urine Nitrite (NEGATIVE) Urine Bilirubin (NEGATIVE) Urine Urobilinogen (0.2-1.0) EU/dL Ur Leukocyte Esterase (NEGATIVE) Urine RBC (0-5) Urine WBC (0-5) Ur Epithelial Cells Amorphous Sediment Urine Bacteria Urine Mucus Med Orders - Current: Current Medications Acetaminophen (Tylenol) 650 mg PO Q4H PRN PRN Reason: Pain (Mild 1-3)/fever Albuterol (Proventil Neb Soln) 2.5 mg NEB Q4H PRN PRN Reason: Shortness Of Breath/wheezing Aspirin (Aspirin) 81 mg PO DAILY [facility] Last Admin: 08/03/19 09:31 Dose: 81 mg Carvedilol (Coreg) 6.25 mg PO BIDMEALS [facility] Last Admin: 08/03/19 08:16 Dose: 6.25 mg Cyanocobalamin (Vitamin B12) 500 mcg PO DAILY [facility] Last Admin: 08/03/19 09:35 Dose: 500 mcg Finasteride (Proscar) 5 mg PO DAILY [facility] Last Admin: 08/03/19 09:35 Dose: 5 mg Furosemide (Lasix) 40 mg IVPUSH ONETIME ONE Stop: 08/03/19 15:01 Furosemide (Lasix) 40 mg IVPUSH ONETIME ONE Stop: 08/04/19 08:01 Glimepiride (Amaryl) 1 mg PO WITHBREAKFAST [facility] Last Admin: 08/03/19 08:14 Dose: 1 mg Isosorbide Mononitrate (Imdur) 30 mg PO DAILY [facility] Last Admin: 08/03/19 09:32 Dose: 30 mg Lorazepam (Ativan) 0.5 mg IVPUSH Q4H PRN PRN Reason: Nausea/Vomiting Magnesium Hydroxide (Milk Of Magnesia) 30 ml PO Q12H PRN PRN Reason: Constipation Melatonin (Melatonin) 9 mg PO BEDTIME [facility] Last Admin: 08/02/19 20:41 Dose: 9 mg Ondansetron HCl (Zofran Odt) 4 mg PO Q6H PRN PRN Reason: Nausea able to take PO Ondansetron HCl (Zofran) 4 mg IV Q6H PRN PRN Reason: Nausea/Vomiting Pantoprazole Sodium (Protonix) 40 mg PO ACBREAKFAST [facility] Last Admin: 08/03/19 08:14 Dose: 40 mg Potassium Chloride (Klor-Con M20) 40 meq PO BID [facility] Last Admin: 08/03/19 09:33 Dose: 40 meq Senna/Docusate Sodium (Senna Plus) 1 tab PO BID PRN PRN Reason: Constipation Sertraline HCl (Zoloft) 100 mg PO DAILY [facility] Last Admin: 08/03/19 09:36 Dose: 100 mg Sodium Chloride (Saline Flush) 10 ml FLUSH ASDIRECTED PRN PRN Reason: Keep Vein Open Last Admin: 08/02/19 16:14 Dose: 10 ml Discontinued Medications Albuterol (Proventil Neb Soln) 2.5 mg NEB ONETIME ONE Stop: 08/02/19 15:46 Last Admin: 08/02/19 16:13 Dose: 2.5 mg Furosemide (Lasix) 40 mg IVPUSH ONETIME ONE Stop: 08/02/19 15:47 Last Admin: 08/02/19 16:13 Dose: 40 mg Furosemide (Lasix) 40 mg IVPUSH ONETIME ONE Stop: 08/03/19 08:01 Last Admin: 08/03/19 08:20 Dose: 40 mg - Exam Quality Assessment: No: Supplemental Oxygen General: Alert, Oriented, Cooperative, No Acute Distress Neck: JVD Lungs: Clear to Auscultation, Normal Respiratory Effort Cardiovascular: Regular Rate, Regular Rhythm, Gallops GI/Abdominal Exam: Soft, No Distention Extremities: Pedal Edema (trace bilateral ankle edema ) Psy/Mental Status: Alert, Normal Affect Sepsis Event Note - Evaluation Sepsis Screening Result: No Definite Risk - Focused Exam Vital Signs: Vital Signs Temp Pulse Pulse Pulse Resp BP BP 08/03/19 11:10 36.3 C 90 24 H 93/68 08/03/19 09:32 116/69 08/03/19 08:16 83 116/69 08/03/19 07:34 35.8 C 83 20 116/69 08/03/19 02:56 35.7 C 88 15 103/66 Pulse Ox 08/03/19 11:10 98 08/03/19 09:32 08/03/19 08:16 08/03/19 07:34 96 08/03/19 02:56 97 Date Exam was Performed: 08/03/19 Time Exam was Performed: 13:59 - Problem List & Annotations (1) CHF (congestive heart failure), NYHA class III SNOMED Code(s): 647470537, 110562514 Code(s): I50.9 - HEART FAILURE, UNSPECIFIED Status: Acute Current Visit: Yes Qualifiers: Congestive heart failure type: unspecified Qualified Code(s): I50.9 - Heart failure, unspecified (2) CKD (chronic kidney disease), stage III SNOMED Code(s): 959220861 Code(s): N18.3 - CHRONIC KIDNEY DISEASE, STAGE 3 (MODERATE) Status: Chronic Current Visit: Yes (3) Diabetes mellitus type II, controlled SNOMED Code(s): 78007356, 072851555 Code(s): E11.9 - TYPE 2 DIABETES MELLITUS WITHOUT COMPLICATIONS Status: Chronic Current Visit: Yes Qualifiers: Diabetes mellitus mcfp insulin use: without mcfp use Diabetes mellitus complication status: with unspecified complications Qualified Code(s) : E11.8 - Type 2 diabetes mellitus with unspecified complications (4) CAD (coronary artery disease) SNOMED Code(s): 71866699 Code(s): I25.10 - ATHSCL HEART DISEASE OF [place] CORONARY ARTERY W/O ANG PCTRS Status: Chronic Current Visit: Yes Qualifiers: Coronary Disease-Associated Artery/Lesion type: [place] artery [place] vs. transplanted heart: [place] heart Associated angina: with stable angina Qualified Code(s): I25.118 - Atherosclerotic heart disease of [place] coronary artery with other forms of angina pectoris (5) Elevated d-dimer SNOMED Code(s): 251845179 Code(s): R79.89 - OTHER SPECIFIED ABNORMAL FINDINGS OF BLOOD CHEMISTRY Status: Acute Current Visit: Yes - Problem List Review Problem List Initiated/Reviewed/Updated: Yes - My Orders Last 24 Hours: My Active Orders 08/02/19 18:19 Resuscitation Status Routine 08/02/19 19:09 Patient Status [ADT] Routine Antiembolic Devices [RC] .Routine Intake and Output [RC] QSHIFT Notify Provider Vital Signs [RC] .PRN Oxygen Therapy [RC] PRN RT Aerosol Therapy [RC] ASDIRECTED Up With Assistance [RC] ASDIRECTED VTE/DVT Education [RC] Per Unit Routine Vital Signs [RC] Q4H Acetaminophen [Tylenol] 650 mg PO Q4H PRN Albuterol [Proventil Neb Soln] 2.5 mg NEB Q4H PRN Docusate Sodium/Sennosides [Senna Plus] 1 tab PO BID PRN LORazepam [Ativan] 0.5 mg IVPUSH Q4H PRN Magnesium Hydroxide [Milk of Magnesia] 30 ml PO Q12H PRN Ondansetron [Zofran ODT] 4 mg PO Q6H PRN Ondansetron [Zofran] 4 mg IV Q6H PRN Antiembolic Hose [OM.PC] Routine 08/02/19 20:00 carvediloL [Coreg] 6.25 mg PO BIDMEALS 08/02/19 21:00 Melatonin 9 mg PO BEDTIME 08/02/19 Dinner Consistent Carbohydrate Diet [DIET] 08/03/19 07:00 PT Evaluation and Treatment [CONS] Routine 08/03/19 07:30 Pantoprazole [ProTONIX] 40 mg PO ACBREAKFAST 08/03/19 08:00 Glimepiride [Amaryl] 1 mg PO WITHBREAKFAST 08/03/19 09:00 VL Duplex Lwr Ext Veins Ltd Rt [US] Routine Aspirin 81 mg PO DAILY Cyanocobalamin (Vitamin B12) [Vitamin B12] 500 mcg PO DAILY Finasteride [Proscar] 5 mg PO DAILY Isosorbide Mononitrate [Imdur] 30 mg PO DAILY Potassium Chloride [Klor-Con M20] 40 meq PO BID Sertraline [Zoloft] 100 mg PO DAILY 08/03/19 15:00 Furosemide [Lasix] 40 mg IVPUSH ONETIME ONE 08/04/19 05:00 BASIC METABOLIC PANEL,BMP [CHEM] Timed 08/04/19 07:00 Echo Comp wo Cont [US] Routine 08/04/19 08:00 Furosemide [Lasix] 40 mg IVPUSH ONETIME ONE - Plan Plan:: ASSESSMENT AND PLAN - Congestive heart failure-subacute exacerbation. Unknown ejection fraction. Good response to diuresis but still has evidence for volume overload including JVD and some lower extremity edema as well as mild residual chest tightness. Twice today and reassess in the morning -Repeat furosemide dosing -Continue carvedilol -Supplement oxygen if needed -Echocardiogram tomorrow Coronary artery disease-history of CABG about 20 years ago. He does report some recent chest tightness but I suspect this may be related to his congestive heart failure. Troponin was negative. chest tightness is better with diuresis. -Continue medical management -Consider increasing isosorbide if blood pressure will allow Elevated [id number] most consistent with CHF but cannot completely rule out pulmonary embolism. Unable to do a CT scan because of his kidney function. Lower extremity ultrasound was negative for DVT. Type 2 diabetes mellitus-controlled with on oral medication. Stage III chronic kidney disease-kidney function slightly improved with diuresis so far. Maintenance issues - - DVT prophylaxis -KATIE stockings - GI prophylaxis -not indicated - Nutrition -consistent carbohydrates Disposition -I would anticipate discharge home, possibly with home care, after the hospital stay Primary care physician -MD Denzel Epstein M.D.
--- NOTE | 2019-08-03 12:53 | CRLUS ---
INDICATION: rt leg swelling, recent fracture - apr 2019 INDICATION: Recent fracture. Right lower extremity swelling. Exclude DVT. COMPARISON: None. TECHNIQUE: A compression venous ultrasound exam was performed of the right lower extremity using 2D angulo-scale imaging, color Doppler and spectral Doppler analysis. FINDINGS: Sonographic imaging of the right lower extremity demonstrates normal compressibility and color Doppler venous blood flow within the common femoral vein, deep femoral vein, and within the proximal greater saphenous vein. Within the thigh, the femoral vein is patent and compressible. At a lower level, the popliteal, peroneal and posterior tibial veins also show normal compressibility and color Doppler venous blood flow. Limited imaging of the contralateral groin demonstrates a normal spectral waveform and color Doppler venous blood flow within the left common femoral vein. IMPRESSION: No evidence of deep vein thrombosis within the right lower extremity. Dictated by Nato Castellon MD @ 08/03/2019 12:52:26 PM Dictated by: Nato Castellon MD @ 08/03/2019 12:52:41 (Electronically Signed)
[2019-08-03] MEDS: Melatonin 3 MG Tab PO SCH (20:22)
[2019-08-04] MEDS ORDERED: Furosemide 40 MG/4 ML VIAL IVPUSH ONE (08:00)
[2019-08-04] MEDS: Glimepiride 2 MG Tab PO SCH (08:25)
[2019-08-04] MEDS: Pantoprazole 40 MG Tab.CR PO SCH (08:25)
[2019-08-04] MEDS: Cyanocobalamin (Vitamin B12) 1,000 MCG Tab PO SCH (08:26)
[2019-08-04] MEDS: Finasteride 5 MG Tab PO SCH (08:26)
[2019-08-04] MEDS: Aspirin 81 MG Tab.Chew PO SCH (08:26)
[2019-08-04] MEDS: Potassium Chloride 20 MEQ Tab.ER PO SCH ×2 (08:26→21:04)
[2019-08-04] MEDS: Isosorbide Mononitrate 30 MG Tab.ER PO SCH (08:27)
[2019-08-04] MEDS: Carvedilol 6.25 MG Tab PO SCH ×2 (08:27→16:40)
[2019-08-04] MEDS: Sertraline 50 MG Tab PO SCH (08:27)
[2019-08-04] MEDS: Calcium Carbonate 500 MG Tab.Chew PO PRN ×2 (10:04→21:04)
--- NOTE | 2019-08-04 10:47 | PCM.PN ---
- General Info Date of Service: 08/04/19 Subjective Update: Good response to diuresis yesterday. No acute events overnight. Patient reports this morning that after breakfast he started to feel fatigued and developed some discomfort in the left side of his lower chest just lateral to the sternum. He points to a very specific area of tenderness. He thinks the tightness in his upper chest is better than it has been. Did not sleep well but no particular reason for his difficulty sleeping. Lower extremity edema is better. No abdominal pain or nausea. Creatinine slightly higher today than yesterday. Functional Status: Reports: Pain Controlled, Tolerating Diet - Review of Systems General: Reports: Weakness, Fatigue Pulmonary: Reports: Shortness of Breath Cardiovascular: Reports: Chest Pain - Patient Data Vitals - Most Recent: Last Vital Signs Temp 35.8 C 08/04/19 07:10 Pulse 98 08/04/19 08:27 Resp 20 08/04/19 07:10 BP 117/72 08/04/19 08:27 Pulse Ox 94 L 08/04/19 07:10 Weight - Most Recent: 80.739 kg I&O - Last 24 Hours: Intake & Output 08/03/19 08/04/19 08/04/19 22:59 06:59 14:59 Intake Total 580 300 240 Output Total 1275 225 Balance -695 300 15 Lab Results Last 24 Hours: Laboratory Results - last 24 hr 08/04/19 Range/Units 04:18 Sodium 142 (140-148) mmol/L Potassium 4.8 (3.6-5.2) mmol/L Chloride 106 (100-108) mmol/L Carbon Dioxide 25 (21-32) mmol/L Anion Gap 10.8 (5.0-14.0) mmol/L BUN 36 H (7-18) mg/dL Creatinine 1.8 H (0.8-1.3) mg/dL Est Cr Clr Drug Dosing 27.08 mL/min Estimated GFR (MDRD) 36 L (>60) Glucose 113 H (74-106) mg/dL Calcium 8.8 (8.5-10.1) mg/dL Med Orders - Current: Current Medications Acetaminophen (Tylenol) 650 mg PO Q4H PRN PRN Reason: Pain (Mild 1-3)/fever Last Admin: 08/03/19 20:25 Dose: 650 mg Albuterol (Proventil Neb Soln) 2.5 mg NEB Q4H PRN PRN Reason: Shortness Of Breath/wheezing Aspirin (Aspirin) 81 mg PO DAILY [facility] Last Admin: 08/04/19 08:26 Dose: 81 mg Calcium Carbonate/Glycine (Tums) 1,000 mg PO Q2H PRN PRN Reason: Indigestion Last Admin: 08/04/19 10:04 Dose: 1,000 mg Carvedilol (Coreg) 6.25 mg PO BIDMEALS [facility] Last Admin: 08/04/19 08:27 Dose: 6.25 mg Cyanocobalamin (Vitamin B12) 500 mcg PO DAILY [facility] Last Admin: 08/04/19 08:26 Dose: 500 mcg Finasteride (Proscar) 5 mg PO DAILY [facility] Last Admin: 08/04/19 08:26 Dose: 5 mg Glimepiride (Amaryl) 1 mg PO WITHBREAKFAST [facility] Last Admin: 08/04/19 08:25 Dose: 1 mg Isosorbide Mononitrate (Imdur) 30 mg PO DAILY [facility] Last Admin: 08/04/19 08:27 Dose: 30 mg Lorazepam (Ativan) 0.5 mg IVPUSH Q4H PRN PRN Reason: Nausea/Vomiting Magnesium Hydroxide (Milk Of Magnesia) 30 ml PO Q12H PRN PRN Reason: Constipation Melatonin (Melatonin) 9 mg PO BEDTIME [facility] Last Admin: 08/03/19 20:22 Dose: 9 mg Ondansetron HCl (Zofran Odt) 4 mg PO Q6H PRN PRN Reason: Nausea able to take PO Ondansetron HCl (Zofran) 4 mg IV Q6H PRN PRN Reason: Nausea/Vomiting Pantoprazole Sodium (Protonix) 40 mg PO ACBREAKFAST [facility] Last Admin: 08/04/19 08:25 Dose: 40 mg Potassium Chloride (Klor-Con M20) 40 meq PO BID [facility] Last Admin: 08/04/19 08:26 Dose: 40 meq Senna/Docusate Sodium (Senna Plus) 1 tab PO BID PRN PRN Reason: Constipation Sertraline HCl (Zoloft) 100 mg PO DAILY [facility] Last Admin: 08/04/19 08:27 Dose: 100 mg Sodium Chloride (Saline Flush) 10 ml FLUSH ASDIRECTED PRN PRN Reason: Keep Vein Open Last Admin: 08/02/19 16:14 Dose: 10 ml Discontinued Medications Albuterol (Proventil Neb Soln) 2.5 mg NEB ONETIME ONE Stop: 08/02/19 15:46 Last Admin: 08/02/19 16:13 Dose: 2.5 mg Furosemide (Lasix) 40 mg IVPUSH ONETIME ONE Stop: 08/02/19 15:47 Last Admin: 08/02/19 16:13 Dose: 40 mg Furosemide (Lasix) 40 mg IVPUSH ONETIME ONE Stop: 08/03/19 08:01 Last Admin: 08/03/19 08:20 Dose: 40 mg Furosemide (Lasix) 40 mg IVPUSH ONETIME ONE Stop: 08/03/19 15:01 Last Admin: 08/03/19 15:26 Dose: 40 mg Furosemide (Lasix) 40 mg IVPUSH ONETIME ONE Stop: 08/04/19 08:01 Last Admin: 08/04/19 08:26 Dose: 40 mg - Exam Quality Assessment: No: Supplemental Oxygen General: Alert, Oriented, Cooperative, No Acute Distress Neck: JVD Lungs: Clear to Auscultation, Normal Respiratory Effort Cardiovascular: Regular Rate, Regular Rhythm, Murmurs, Gallops GI/Abdominal Exam: Soft, No Distention Extremities: Pedal Edema (mild right lower leg). No: Increased Warmth Skin: Warm, Dry Psy/Mental Status: Alert, Normal Affect Sepsis Event Note - Evaluation Sepsis Screening Result: No Definite Risk - Focused Exam Vital Signs: Vital Signs Temp Pulse Pulse Resp BP BP Pulse Ox 08/04/19 08:27 98 117/72 08/04/19 07:10 35.8 C 96 20 111/70 94 L 08/04/19 03:00 35.8 C 94 18 100/69 97 08/03/19 23:00 35.7 C 88 18 116/70 97 Date Exam was Performed: 08/04/19 Time Exam was Performed: 13:05 - Problem List & Annotations (1) CHF (congestive heart failure), NYHA class III SNOMED Code(s): 387084528, 343725680 Code(s): I50.9 - HEART FAILURE, UNSPECIFIED Status: Acute Current Visit: Yes Qualifiers: Congestive heart failure type: diastolic Congestive heart failure chronicity: acute on chronic Qualified Code(s): I50.33 - Acute on chronic diastolic (congestive) heart failure (2) CKD (chronic kidney disease), stage III SNOMED Code(s): 798740618 Code(s): N18.3 - CHRONIC KIDNEY DISEASE, STAGE 3 (MODERATE) Status: Chronic Current Visit: Yes (3) Diabetes mellitus type II, controlled SNOMED Code(s): 33317646, 624613940 Code(s): E11.9 - TYPE 2 DIABETES MELLITUS WITHOUT COMPLICATIONS Status: Chronic Current Visit: Yes Qualifiers: Diabetes mellitus buttermaker helper insulin use: without buttermaker helper use Diabetes mellitus complication status: with unspecified complications Qualified Code(s) : E11.8 - Type 2 diabetes mellitus with unspecified complications (4) CAD (coronary artery disease) SNOMED Code(s): 45762338 Code(s): I25.10 - ATHSCL HEART DISEASE OF [place] CORONARY ARTERY W/O ANG PCTRS Status: Chronic Current Visit: Yes Qualifiers: Coronary Disease-Associated Artery/Lesion type: [place] artery [place] vs. transplanted heart: [place] heart Associated angina: with stable angina Qualified Code(s): I25.118 - Atherosclerotic heart disease of [place] coronary artery with other forms of angina pectoris (5) Elevated d-dimer SNOMED Code(s): 640034477 Code(s): R79.89 - OTHER SPECIFIED ABNORMAL FINDINGS OF BLOOD CHEMISTRY Status: Acute Current Visit: Yes - Problem List Review Problem List Initiated/Reviewed/Updated: Yes - My Orders Last 24 Hours: My Active Orders 08/04/19 07:00 Echo Comp wo Cont [US] Routine 08/04/19 09:57 Calcium Carbonate [Tums] 1,000 mg PO Q2H PRN 08/04/19 10:38 EKG Documentation Completion [RC] ASDIRECTED TROPONIN I [CHEM] Urgent EKG 12 Lead [EK] Urgent 08/04/19 16:00 Furosemide [Lasix] 20 mg IVPUSH ONETIME ONE 08/05/19 05:00 BASIC METABOLIC PANEL,BMP [CHEM] Timed CBC W/O DIFF,HEMOGRAM [HEME] Timed (1) 08/05/19 07:00 Lung Vent Perfusion [NM] Routine 08/05/19 08:00 Furosemide [Lasix] 40 mg IVPUSH ONETIME ONE - Plan Plan:: ASSESSMENT AND PLAN - Congestive heart failure-acute on chronic exacerbation. He has a normal ejection fraction but has multiple valvular abnormalities including MR, TR, AI as well as some . Still evidence for volume overload though creatinine is slightly higher today. -Furosemide 40 mg this morning and 20 this afternoon -Continue carvedilol -Consider low-dose ASHTYN inhibitor for additional afterload reduction once more euvolemic -Supplement oxygen if needed Coronary artery disease-history of CABG about 20 years ago. Chest tightness is better but he reports some left lower chest pain today. Sounds like musculoskeletal or potentially GI pain. Troponin negative and EKG was unchanged this morning. -Continue medical management -Consider increasing isosorbide if blood pressure will allow Elevated [id number] most consistent with CHF but cannot completely rule out pulmonary embolism. Unable to do a CT scan because of his kidney function. Lower extremity ultrasound was negative for DVT. -VQ scan tomorrow morning Type 2 diabetes mellitus-controlled with on oral medication. Stage III chronic kidney disease-kidney function down slightly compared to the past 2 days. Maintenance issues - - DVT prophylaxis -KATIE stockings - GI prophylaxis -not indicated - Nutrition -consistent carbohydrates Disposition -I would anticipate discharge home, possibly with home care, after the hospital stay Primary care physician -MD Denzel Epstein M.D.
[2019-08-04] MEDS ORDERED: Furosemide 20 MG/2 ML VIAL IVPUSH ONE (16:00)
[2019-08-04] MEDS: Melatonin 3 MG Tab PO SCH (21:04)
[2019-08-05] MEDS ORDERED: Furosemide 40 MG/4 ML VIAL IVPUSH ONE ×2 (08:00→15:00)
[2019-08-05] MEDS: Carvedilol 6.25 MG Tab PO SCH ×2 (08:48→17:28)
[2019-08-05] MEDS: Aspirin 81 MG Tab.Chew PO SCH (08:48)
[2019-08-05] MEDS: Glimepiride 2 MG Tab PO SCH (08:48)
[2019-08-05] MEDS: Pantoprazole 40 MG Tab.CR PO SCH (08:48)
[2019-08-05] MEDS: Finasteride 5 MG Tab PO SCH (08:49)
[2019-08-05] MEDS: Sertraline 50 MG Tab PO SCH (08:49)
[2019-08-05] MEDS: Potassium Chloride 20 MEQ Tab.ER PO SCH ×2 (08:49→20:51)
[2019-08-05] MEDS: Cyanocobalamin (Vitamin B12) 1,000 MCG Tab PO SCH (08:49)
[2019-08-05] MEDS: Isosorbide Mononitrate 30 MG Tab.ER PO SCH (08:49)
--- NOTE | 2019-08-05 09:39 | CRLNM ---
HISTORY: 84-year-old male. Shortness of breath. Chest pain. Elevated D-dimer. Evaluate for pulmonary embolism. TECHNIQUE: 1.0 millicuries of [id number] aerosol was utilized for the ventilation images. 6.0 millicuries of [id number] was injected intravenously for the perfusion images. COMPARISON: Chest x-ray of 08/05/2019 at 9:10 a.m. FINDINGS: The perfusion images demonstrate bilateral subsegmental and nonsegmental perfusion abnormalities. The ventilation images demonstrate matching ventilation abnormalities. There are no corresponding infiltrates on the chest x-ray. This pattern is typical for airway disease. No significant V/Q mismatches are identified. Please note that the lung apices were not fully included on the perfusion or ventilation images. IMPRESSION: 1. There are matching ventilation and perfusion abnormalities without corresponding infiltrates. This pattern is typical for airway disease. 2. Overall, these findings are consistent with a low probability, but not a zero probability, for pulmonary embolism. 3. Recommend further evaluation/follow-up as clinically indicated. Dictated by Ralph Gonzales MD @ Aug 05 2019 9:30AM Signed by Dr. Ralph Gonzales @ Aug 05 2019 9:38AM
--- NOTE | 2019-08-05 09:56 | CRLCR ---
INDICATION: Shortness of breath TECHNIQUE: Chest radiograph 2 views COMPARISON: 07/25/2019 FINDINGS: Mediastinum: Previous median sternotomy and coronary artery bypass grafting (CABG) noted. The heart silhouette is normal in size and morphology. There is a left cardiac pacer present with leads in the right atrium and right ventricle. Lung: Both lungs are unremarkable in appearance. No sign of pleural effusion seen. No pneumothorax is identified. Bone and Soft tissue: Unremarkable for age. IMPRESSION: 1. No acute cardiopulmonary disease is seen. Dictated by Fabricio Ovalle MD @ 08/05/2019 9:54:59 AM Dictated by: Fabricio Ovalle MD @ 08/05/2019 09:55:02 (Electronically Signed)
--- NOTE | 2019-08-05 12:01 | PCM.PN ---
- General Info Date of Service: 08/05/19 Subjective Update: No acute events overnight. Shortness of breath is mild and slowly improving. He still has some mild chest tightness but this is better today as well. He did not have an impressive response to diuresis but symptomatically is feeling better compared to yesterday. No lower extremity edema. No significant orthopnea. He had a ventilation and perfusion scan this morning which was read as low probability for pulmonary embolism. Functional Status: Reports: Pain Controlled, Tolerating Diet - Patient Data Vitals - Most Recent: Last Vital Signs Temp 35.9 C 08/05/19 07:00 Pulse 95 08/05/19 08:48 Resp 18 08/05/19 07:00 BP 113/79 08/05/19 08:49 Pulse Ox 94 L 08/05/19 07:00 Weight - Most Recent: 80.739 kg I&O - Last 24 Hours: Intake & Output 08/04/19 08/05/19 08/05/19 22:59 06:59 14:59 Intake Total 700 320 Output Total 525 400 Balance 175 -80 Lab Results Last 24 Hours: Laboratory Results - last 24 hr 08/05/19 08/05/19 Range/Units 04:32 04:32 WBC 7.4 (4.5-11.0) K/uL RBC 4.81 (4.30-5.90) M/uL Hgb 13.7 (12.0-15.0) g/dL Hct 43.8 (40.0-54.0) % MCV 91 (80-98) fL MCH 29 (27-31) pg MCHC 31 L (32-36) % Plt Count 170 (150-400) K/uL Sodium 140 (140-148) mmol/L Potassium 4.8 (3.6-5.2) mmol/L Chloride 105 (100-108) mmol/L Carbon Dioxide 24 (21-32) mmol/L Anion Gap 10.9 (5.0-14.0) mmol/L BUN 35 H (7-18) mg/dL Creatinine 1.7 H (0.8-1.3) mg/dL Est Cr Clr Drug Dosing 28.81 mL/min Estimated GFR (MDRD) 38 L (>60) Glucose 117 H (74-106) mg/dL Calcium 9.2 (8.5-10.1) mg/dL Med Orders - Current: Current Medications Acetaminophen (Tylenol) 650 mg PO Q4H PRN PRN Reason: Pain (Mild 1-3)/fever Last Admin: 08/03/19 20:25 Dose: 650 mg Albuterol (Proventil Neb Soln) 2.5 mg NEB Q4H PRN PRN Reason: Shortness Of Breath/wheezing Last Admin: 08/05/19 02:28 Dose: 2.5 mg Aspirin (Aspirin) 81 mg PO DAILY [facility] Last Admin: 08/05/19 08:48 Dose: 81 mg Calcium Carbonate/Glycine (Tums) 1,000 mg PO Q2H PRN PRN Reason: Indigestion Last Admin: 08/04/19 21:04 Dose: 1,000 mg Carvedilol (Coreg) 6.25 mg PO BIDMEALS [facility] Last Admin: 08/05/19 08:48 Dose: 6.25 mg Cyanocobalamin (Vitamin B12) 500 mcg PO DAILY [facility] Last Admin: 08/05/19 08:49 Dose: 500 mcg Finasteride (Proscar) 5 mg PO DAILY [facility] Last Admin: 08/05/19 08:49 Dose: 5 mg Glimepiride (Amaryl) 1 mg PO WITHBREAKFAST [facility] Last Admin: 08/05/19 08:48 Dose: 1 mg Isosorbide Mononitrate (Imdur) 30 mg PO DAILY [facility] Last Admin: 08/05/19 08:49 Dose: 30 mg Lorazepam (Ativan) 0.5 mg IVPUSH Q4H PRN PRN Reason: Nausea/Vomiting Magnesium Hydroxide (Milk Of Magnesia) 30 ml PO Q12H PRN PRN Reason: Constipation Melatonin (Melatonin) 9 mg PO BEDTIME [facility] Last Admin: 08/04/19 21:04 Dose: 9 mg Ondansetron HCl (Zofran Odt) 4 mg PO Q6H PRN PRN Reason: Nausea able to take PO Ondansetron HCl (Zofran) 4 mg IV Q6H PRN PRN Reason: Nausea/Vomiting Pantoprazole Sodium (Protonix) 40 mg PO ACBREAKFAST [facility] Last Admin: 08/05/19 08:48 Dose: 40 mg Potassium Chloride (Klor-Con M20) 40 meq PO BID [facility] Last Admin: 08/05/19 08:49 Dose: 40 meq Senna/Docusate Sodium (Senna Plus) 1 tab PO BID PRN PRN Reason: Constipation Sertraline HCl (Zoloft) 100 mg PO DAILY [facility] Last Admin: 08/05/19 08:49 Dose: 100 mg Sodium Chloride (Saline Flush) 10 ml FLUSH ASDIRECTED PRN PRN Reason: Keep Vein Open Last Admin: 08/02/19 16:14 Dose: 10 ml Discontinued Medications Albuterol (Proventil Neb Soln) 2.5 mg NEB ONETIME ONE Stop: 08/02/19 15:46 Last Admin: 08/02/19 16:13 Dose: 2.5 mg Furosemide (Lasix) 40 mg IVPUSH ONETIME ONE Stop: 08/02/19 15:47 Last Admin: 08/02/19 16:13 Dose: 40 mg Furosemide (Lasix) 40 mg IVPUSH ONETIME ONE Stop: 08/03/19 08:01 Last Admin: 08/03/19 08:20 Dose: 40 mg Furosemide (Lasix) 40 mg IVPUSH ONETIME ONE Stop: 08/03/19 15:01 Last Admin: 08/03/19 15:26 Dose: 40 mg Furosemide (Lasix) 40 mg IVPUSH ONETIME ONE Stop: 08/04/19 08:01 Last Admin: 08/04/19 08:26 Dose: 40 mg Furosemide (Lasix) 20 mg IVPUSH ONETIME ONE Stop: 08/04/19 16:01 Last Admin: 08/04/19 16:40 Dose: 20 mg Furosemide (Lasix) 40 mg IVPUSH ONETIME ONE Stop: 08/05/19 08:01 Last Admin: 08/05/19 08:48 Dose: 40 mg - Exam Quality Assessment: No: Supplemental Oxygen General: Alert, Oriented, Cooperative, No Acute Distress Neck: JVD Lungs: Clear to Auscultation, Normal Respiratory Effort Cardiovascular: Regular Rate, Regular Rhythm, Murmurs, Gallops GI/Abdominal Exam: Soft, No Distention Extremities: No Pedal Edema. No: Increased Warmth Skin: Warm, Dry Psy/Mental Status: Alert, Normal Affect Sepsis Event Note - Evaluation Sepsis Screening Result: No Definite Risk - Focused Exam Vital Signs: Vital Signs Temp Pulse Pulse Resp BP BP Pulse Ox 08/05/19 08:49 113/79 08/05/19 08:48 95 113/79 08/05/19 07:00 35.9 C 95 18 113/79 94 L 08/05/19 02:18 36.1 C 92 16 93/61 96 Date Exam was Performed: 08/05/19 Time Exam was Performed: 11:58 - Problem List & Annotations (1) CHF (congestive heart failure), NYHA class III SNOMED Code(s): 166103485, 440663402 Code(s): I50.9 - HEART FAILURE, UNSPECIFIED Status: Acute Current Visit: Yes Qualifiers: Congestive heart failure type: diastolic Congestive heart failure chronicity: acute on chronic Qualified Code(s): I50.33 - Acute on chronic diastolic (congestive) heart failure (2) CKD (chronic kidney disease), stage III SNOMED Code(s): 704829308 Code(s): N18.3 - CHRONIC KIDNEY DISEASE, STAGE 3 (MODERATE) Status: Chronic Current Visit: Yes (3) Diabetes mellitus type II, controlled SNOMED Code(s): 75601801, 463338781 Code(s): E11.9 - TYPE 2 DIABETES MELLITUS WITHOUT COMPLICATIONS Status: Chronic Current Visit: Yes Qualifiers: Diabetes mellitus intermediate card tender insulin use: without chcf use Diabetes mellitus complication status: with unspecified complications Qualified Code(s) : E11.8 - Type 2 diabetes mellitus with unspecified complications (4) CAD (coronary artery disease) SNOMED Code(s): 18521016 Code(s): I25.10 - ATHSCL HEART DISEASE OF [place] CORONARY ARTERY W/O ANG PCTRS Status: Chronic Current Visit: Yes Qualifiers: Coronary Disease-Associated Artery/Lesion type: [place] artery [place] vs. transplanted heart: [place] affiliated heart Associated angina: with stable angina Qualified Code(s): I25.118 - Atherosclerotic heart disease of [place] coronary artery with other forms of angina pectoris (5) Elevated d-dimer SNOMED Code(s): 926899309 Code(s): R79.89 - OTHER SPECIFIED ABNORMAL FINDINGS OF BLOOD CHEMISTRY Status: Acute Current Visit: Yes - Problem List Review Problem List Initiated/Reviewed/Updated: Yes - My Orders Last 24 Hours: My Active Orders 08/05/19 15:00 Furosemide [Lasix] 40 mg IVPUSH ONETIME ONE 08/06/19 05:00 BASIC METABOLIC PANEL,BMP [CHEM] Timed 08/06/19 09:00 Furosemide [Lasix] 40 mg IVPUSH DAILY - Plan Plan:: ASSESSMENT AND PLAN - Congestive heart failure due to valvular disease-acute on chronic exacerbation. He has a normal ejection fraction but has multiple valvular abnormalities including MR, TR, AI as well as some . Still evidence for volume overload though creatinine but slowly improving. -Furosemide 40 mg this morning and 40 this afternoon -Continue carvedilol -Consider low-dose ASHTYN inhibitor for additional afterload reduction once more euvolemic -Supplement oxygen if needed Coronary artery disease-history of CABG about 20 years ago. Chest tightness is slowly improving with diuresis. -Continue medical management -Consider increasing isosorbide if blood pressure will allow Elevated d-dimer-no evidence for DVT and VQ scan was read as low probability. Pulmonary embolism is very unlikely with a much higher likelihood that his shortness of breath and chest tightness is related to his congestive heart failure. Type 2 diabetes mellitus-controlled with on oral medication. Stage III chronic kidney disease-kidney function stable. Maintenance issues - - DVT prophylaxis -KATIE stockings - GI prophylaxis -not indicated - Nutrition -consistent carbohydrates Disposition -I would anticipate discharge home, possibly with home care, after the hospital stay Primary care physician -MD Denzel Epstein M.D.
[2019-08-05] MEDS: Melatonin 3 MG Tab PO SCH (20:51)
[2019-08-06] MEDS: Carvedilol 6.25 MG Tab PO SCH ×2 (08:03→17:58)
[2019-08-06] MEDS: Glimepiride 2 MG Tab PO SCH (08:03)
[2019-08-06] MEDS: Aspirin 81 MG Tab.Chew PO SCH (08:03)
[2019-08-06] MEDS: Pantoprazole 40 MG Tab.CR PO SCH (08:03)
[2019-08-06] MEDS: Isosorbide Mononitrate 30 MG Tab.ER PO SCH (08:04)
[2019-08-06] MEDS: Cyanocobalamin (Vitamin B12) 1,000 MCG Tab PO SCH (08:05)
[2019-08-06] MEDS: Finasteride 5 MG Tab PO SCH (08:05)
[2019-08-06] MEDS: Sertraline 50 MG Tab PO SCH (08:06)
[2019-08-06] MEDS ORDERED: Furosemide 40 MG/4 ML VIAL IVPUSH SCH (09:00)
--- NOTE | 2019-08-06 10:20 | PCM.PN ---
- General Info Date of Service: 08/06/19 Subjective Update: No acute events overnight. Excellent response to diuresis yesterday. Chest tightness and shortness of breath are both better today. He has been able to do some walking. Appetite has been good. Vital signs have all been stable. Kidney function is stable. Functional Status: Reports: Pain Controlled, Tolerating Diet - Review of Systems General: Reports: Weakness, Fatigue - Patient Data Vitals - Most Recent: Last Vital Signs Temp 36.4 C 08/06/19 07:00 Pulse 97 08/06/19 08:03 Resp 18 08/06/19 07:00 BP 112/70 08/06/19 08:04 Pulse Ox 95 08/06/19 07:00 Weight - Most Recent: 80.739 kg I&O - Last 24 Hours: Intake & Output 08/05/19 08/06/19 08/06/19 22:59 06:59 14:59 Intake Total 490 600 480 Output Total 1550 500 Balance -1060 100 480 Lab Results Last 24 Hours: Laboratory Results - last 24 hr 08/06/19 Range/Units 04:00 Sodium 142 (140-148) mmol/L Potassium 5.2 (3.6-5.2) mmol/L Chloride 105 (100-108) mmol/L Carbon Dioxide 26 (21-32) mmol/L Anion Gap 11.2 (5.0-14.0) mmol/L BUN 39 H (7-18) mg/dL Creatinine 1.8 H (0.8-1.3) mg/dL Est Cr Clr Drug Dosing 27.21 mL/min Estimated GFR (MDRD) 36 L (>60) Glucose 144 H (74-106) mg/dL Calcium 9.4 (8.5-10.1) mg/dL Med Orders - Current: Current Medications Acetaminophen (Tylenol) 650 mg PO Q4H PRN PRN Reason: Pain (Mild 1-3)/fever Last Admin: 08/03/19 20:25 Dose: 650 mg Albuterol (Proventil Neb Soln) 2.5 mg NEB Q4H PRN PRN Reason: Shortness Of Breath/wheezing Last Admin: 08/05/19 02:28 Dose: 2.5 mg Aspirin (Aspirin) 81 mg PO DAILY [facility] Last Admin: 08/06/19 08:03 Dose: 81 mg Calcium Carbonate/Glycine (Tums) 1,000 mg PO Q2H PRN PRN Reason: Indigestion Last Admin: 08/04/19 21:04 Dose: 1,000 mg Carvedilol (Coreg) 6.25 mg PO BIDMEALS [facility] Last Admin: 08/06/19 08:03 Dose: 6.25 mg Cyanocobalamin (Vitamin B12) 500 mcg PO DAILY [facility] Last Admin: 08/06/19 08:05 Dose: 500 mcg Finasteride (Proscar) 5 mg PO DAILY [facility] Last Admin: 08/06/19 08:05 Dose: 5 mg Furosemide (Lasix) 40 mg IVPUSH ONETIME ONE Stop: 08/06/19 15:01 Furosemide (Lasix) 40 mg IVPUSH DAILY [facility] Glimepiride (Amaryl) 1 mg PO WITHBREAKFAST [facility] Last Admin: 08/06/19 08:03 Dose: 1 mg Isosorbide Mononitrate (Imdur) 30 mg PO DAILY [facility] Last Admin: 08/06/19 08:04 Dose: 30 mg Lorazepam (Ativan) 0.5 mg IVPUSH Q4H PRN PRN Reason: Nausea/Vomiting Magnesium Hydroxide (Milk Of Magnesia) 30 ml PO Q12H PRN PRN Reason: Constipation Melatonin (Melatonin) 9 mg PO BEDTIME [facility] Last Admin: 08/05/19 20:51 Dose: 9 mg Ondansetron HCl (Zofran Odt) 4 mg PO Q6H PRN PRN Reason: Nausea able to take PO Ondansetron HCl (Zofran) 4 mg IV Q6H PRN PRN Reason: Nausea/Vomiting Pantoprazole Sodium (Protonix) 40 mg PO ACBREAKFAST [facility] Last Admin: 08/06/19 08:03 Dose: 40 mg Potassium Chloride (Klor-Con M20) 40 meq PO BID [facility] Last Admin: 08/05/19 20:51 Dose: 40 meq Senna/Docusate Sodium (Senna Plus) 1 tab PO BID PRN PRN Reason: Constipation Sertraline HCl (Zoloft) 100 mg PO DAILY [facility] Last Admin: 08/06/19 08:06 Dose: 100 mg Sodium Chloride (Saline Flush) 10 ml FLUSH ASDIRECTED PRN PRN Reason: Keep Vein Open Last Admin: 08/02/19 16:14 Dose: 10 ml Discontinued Medications Albuterol (Proventil Neb Soln) 2.5 mg NEB ONETIME ONE Stop: 08/02/19 15:46 Last Admin: 08/02/19 16:13 Dose: 2.5 mg Furosemide (Lasix) 40 mg IVPUSH ONETIME ONE Stop: 08/02/19 15:47 Last Admin: 08/02/19 16:13 Dose: 40 mg Furosemide (Lasix) 40 mg IVPUSH ONETIME ONE Stop: 08/03/19 08:01 Last Admin: 08/03/19 08:20 Dose: 40 mg Furosemide (Lasix) 40 mg IVPUSH ONETIME ONE Stop: 08/03/19 15:01 Last Admin: 08/03/19 15:26 Dose: 40 mg Furosemide (Lasix) 40 mg IVPUSH ONETIME ONE Stop: 08/04/19 08:01 Last Admin: 08/04/19 08:26 Dose: 40 mg Furosemide (Lasix) 20 mg IVPUSH ONETIME ONE Stop: 08/04/19 16:01 Last Admin: 08/04/19 16:40 Dose: 20 mg Furosemide (Lasix) 40 mg IVPUSH ONETIME ONE Stop: 08/05/19 08:01 Last Admin: 08/05/19 08:48 Dose: 40 mg Furosemide (Lasix) 40 mg IVPUSH ONETIME ONE Stop: 08/05/19 15:01 Last Admin: 08/05/19 15:28 Dose: 40 mg Furosemide (Lasix) 40 mg IVPUSH DAILY [facility] Last Admin: 08/06/19 08:10 Dose: 40 mg - Exam Quality Assessment: No: Supplemental Oxygen General: Alert, Oriented, Cooperative, No Acute Distress Lungs: Clear to Auscultation, Normal Respiratory Effort Cardiovascular: Regular Rate, Regular Rhythm, Murmurs, Gallops GI/Abdominal Exam: Soft, No Distention Extremities: No Pedal Edema. No: Increased Warmth Skin: Warm, Dry Psy/Mental Status: Alert, Normal Affect Sepsis Event Note - Evaluation Sepsis Screening Result: No Definite Risk - Focused Exam Vital Signs: Vital Signs Temp Pulse Pulse Resp BP BP Pulse Ox 08/06/19 08:04 112/70 08/06/19 08:03 97 112/70 08/06/19 07:00 36.4 C 97 18 112/70 95 08/06/19 03:00 36.4 C 82 16 116/77 97 08/05/19 22:38 36.2 C 82 16 107/66 95 Date Exam was Performed: 08/06/19 Time Exam was Performed: 11:17 - Problem List & Annotations (1) CHF (congestive heart failure), NYHA class III SNOMED Code(s): 672407039, 499870112 Code(s): I50.9 - HEART FAILURE, UNSPECIFIED Status: Acute Current Visit: Yes Qualifiers: Congestive heart failure type: diastolic Congestive heart failure chronicity: acute on chronic Qualified Code(s): I50.33 - Acute on chronic diastolic (congestive) heart failure (2) CKD (chronic kidney disease), stage III SNOMED Code(s): 984281433 Code(s): N18.3 - CHRONIC KIDNEY DISEASE, STAGE 3 (MODERATE) Status: Chronic Current Visit: Yes (3) Diabetes mellitus type II, controlled SNOMED Code(s): 32074717, 157275282 Code(s): E11.9 - TYPE 2 DIABETES MELLITUS WITHOUT COMPLICATIONS Status: Chronic Current Visit: Yes Qualifiers: Diabetes mellitus detention insulin use: without detention use Diabetes mellitus complication status: with unspecified complications Qualified Code(s) : E11.8 - Type 2 diabetes mellitus with unspecified complications (4) CAD (coronary artery disease) SNOMED Code(s): 43233255 Code(s): I25.10 - ATHSCL HEART DISEASE OF [place] CORONARY ARTERY W/O ANG PCTRS Status: Chronic Current Visit: Yes Qualifiers: Coronary Disease-Associated Artery/Lesion type: [place] artery [place] vs. transplanted heart: [place] heart Associated angina: with stable angina Qualified Code(s): I25.118 - Atherosclerotic heart disease of [place] coronary artery with other forms of angina pectoris (5) Elevated d-dimer SNOMED Code(s): 673315805 Code(s): R79.89 - OTHER SPECIFIED ABNORMAL FINDINGS OF BLOOD CHEMISTRY Status: Acute Current Visit: Yes - Problem List Review Problem List Initiated/Reviewed/Updated: Yes - My Orders Last 24 Hours: My Active Orders 08/06/19 15:00 Furosemide [Lasix] 40 mg IVPUSH ONETIME ONE 08/07/19 05:00 BASIC METABOLIC PANEL,BMP [CHEM] Timed 08/07/19 08:00 Furosemide [Lasix] 40 mg IVPUSH DAILY - Plan Plan:: ASSESSMENT AND PLAN - Congestive heart failure due to valvular disease-acute on chronic exacerbation. He has a normal ejection fraction but has multiple valvular abnormalities including MR, TR, AI as well as some . Slowly improving with diuresis. Kidney function stable. Still evidence for volume overload. -Furosemide 40 mg this morning and 40 this afternoon -Continue carvedilol -Consider low-dose ASHTYN inhibitor for additional afterload reduction once more euvolemic -Supplement oxygen if needed Coronary artery disease-history of CABG about 20 years ago. Chest tightness continues to slowly improve with diuresis. -Continue medical management -Consider increasing isosorbide if blood pressure will allow Elevated d-dimer-no evidence for DVT and VQ scan was read as low probability. Pulmonary embolism is very unlikely with a much higher likelihood that his shortness of breath and chest tightness is related to his congestive heart failure. Type 2 diabetes mellitus-controlled with on oral medication. Stage III chronic kidney disease-kidney function stable. Maintenance issues - - DVT prophylaxis -KATIE stockings - GI prophylaxis -not indicated - Nutrition -consistent carbohydrates Disposition -I would anticipate discharge home, possibly with home care, after the hospital stay Primary care physician -MD Denzel Epstein M.D.
[2019-08-06] MEDS ORDERED: Furosemide 40 MG/4 ML VIAL IVPUSH ONE (15:00)
[2019-08-06] MEDS: Potassium Chloride 20 MEQ Tab.ER PO SCH (17:24)
[2019-08-06] MEDS: Melatonin 3 MG Tab PO SCH (20:17)
[2019-08-07] MEDS: Carvedilol 6.25 MG Tab PO SCH ×2 (07:31→18:00)
[2019-08-07] MEDS: Glimepiride 2 MG Tab PO SCH (07:32)
[2019-08-07] MEDS: Furosemide 40 MG/4 ML VIAL IVPUSH SCH ×2 (07:32→08:25)
[2019-08-07] MEDS: Pantoprazole 40 MG Tab.CR PO SCH (07:32)
[2019-08-07] MEDS: Isosorbide Mononitrate 30 MG Tab.ER PO SCH (08:21)
[2019-08-07] MEDS: Finasteride 5 MG Tab PO SCH (08:21)
[2019-08-07] MEDS: Sertraline 50 MG Tab PO SCH (08:21)
[2019-08-07] MEDS: Cyanocobalamin (Vitamin B12) 1,000 MCG Tab PO SCH (08:21)
[2019-08-07] MEDS: Aspirin 81 MG Tab.Chew PO SCH (08:22)
--- NOTE | 2019-08-07 11:09 | PCM.PN ---
- General Info Date of Service: 08/07/19 Subjective Update: No acute events overnight. Excellent response to diuresis again yesterday. Shortness of breath continues to improve. Chest tightness has essentially resolved. He had a good night of sleep. Strength and stamina seem to be slowly improving. Kidney function stable. Functional Status: Reports: Pain Controlled, Tolerating Diet - Review of Systems Pulmonary: Reports: Shortness of Breath (mild) Cardiovascular: Denies: Chest Pain - Patient Data Vitals - Most Recent: Last Vital Signs Temp 36.4 C 08/07/19 07:26 Pulse 91 08/07/19 07:31 Resp 20 08/07/19 07:26 BP 105/68 08/07/19 08:21 Pulse Ox 96 08/07/19 07:26 Weight - Most Recent: 78.018 kg I&O - Last 24 Hours: Intake & Output 08/06/19 08/07/19 08/07/19 22:59 06:59 14:59 Intake Total 600 Output Total 1300 300 400 Balance -700 -300 -400 Lab Results Last 24 Hours: Laboratory Results - last 24 hr 08/07/19 Range/Units 05:40 Sodium 140 (140-148) mmol/L Potassium 4.3 (3.6-5.2) mmol/L Chloride 102 (100-108) mmol/L Carbon Dioxide 27 (21-32) mmol/L Anion Gap 11.2 (5.0-14.0) mmol/L BUN 43 H (7-18) mg/dL Creatinine 1.7 H (0.8-1.3) mg/dL Est Cr Clr Drug Dosing 28.81 mL/min Estimated GFR (MDRD) 38 L (>60) Glucose 122 H (74-106) mg/dL Calcium 9.0 (8.5-10.1) mg/dL Med Orders - Current: Current Medications Acetaminophen (Tylenol) 650 mg PO Q4H PRN PRN Reason: Pain (Mild 1-3)/fever Last Admin: 08/03/19 20:25 Dose: 650 mg Albuterol (Proventil Neb Soln) 2.5 mg NEB Q4H PRN PRN Reason: Shortness Of Breath/wheezing Last Admin: 08/05/19 02:28 Dose: 2.5 mg Aspirin (Aspirin) 81 mg PO DAILY [facility] Last Admin: 08/07/19 08:22 Dose: 81 mg Calcium Carbonate/Glycine (Tums) 1,000 mg PO Q2H PRN PRN Reason: Indigestion Last Admin: 08/04/19 21:04 Dose: 1,000 mg Carvedilol (Coreg) 6.25 mg PO BIDMEALS [facility] Last Admin: 08/07/19 07:31 Dose: 6.25 mg Cyanocobalamin (Vitamin B12) 500 mcg PO DAILY [facility] Last Admin: 08/07/19 08:21 Dose: 500 mcg Finasteride (Proscar) 5 mg PO DAILY [facility] Last Admin: 08/07/19 08:21 Dose: 5 mg Furosemide (Lasix) 40 mg IVPUSH DAILY [facility] Last Admin: 08/07/19 08:25 Dose: Not Given Glimepiride (Amaryl) 1 mg PO WITHBREAKFAST [facility] Last Admin: 08/07/19 07:32 Dose: 1 mg Isosorbide Mononitrate (Imdur) 30 mg PO DAILY [facility] Last Admin: 08/07/19 08:21 Dose: 30 mg Lorazepam (Ativan) 0.5 mg IVPUSH Q4H PRN PRN Reason: Nausea/Vomiting Magnesium Hydroxide (Milk Of Magnesia) 30 ml PO Q12H PRN PRN Reason: Constipation Melatonin (Melatonin) 9 mg PO BEDTIME [facility] Last Admin: 08/06/19 20:17 Dose: 9 mg Ondansetron HCl (Zofran Odt) 4 mg PO Q6H PRN PRN Reason: Nausea able to take PO Ondansetron HCl (Zofran) 4 mg IV Q6H PRN PRN Reason: Nausea/Vomiting Pantoprazole Sodium (Protonix) 40 mg PO ACBREAKFAST [facility] Last Admin: 08/07/19 07:32 Dose: 40 mg Senna/Docusate Sodium (Senna Plus) 1 tab PO BID PRN PRN Reason: Constipation Sertraline HCl (Zoloft) 100 mg PO DAILY [facility] Last Admin: 08/07/19 08:21 Dose: 100 mg Sodium Chloride (Saline Flush) 10 ml FLUSH ASDIRECTED PRN PRN Reason: Keep Vein Open Last Admin: 08/02/19 16:14 Dose: 10 ml Discontinued Medications Albuterol (Proventil Neb Soln) 2.5 mg NEB ONETIME ONE Stop: 08/02/19 15:46 Last Admin: 08/02/19 16:13 Dose: 2.5 mg Furosemide (Lasix) 40 mg IVPUSH ONETIME ONE Stop: 08/02/19 15:47 Last Admin: 08/02/19 16:13 Dose: 40 mg Furosemide (Lasix) 40 mg IVPUSH ONETIME ONE Stop: 08/03/19 08:01 Last Admin: 08/03/19 08:20 Dose: 40 mg Furosemide (Lasix) 40 mg IVPUSH ONETIME ONE Stop: 08/03/19 15:01 Last Admin: 08/03/19 15:26 Dose: 40 mg Furosemide (Lasix) 40 mg IVPUSH ONETIME ONE Stop: 08/04/19 08:01 Last Admin: 08/04/19 08:26 Dose: 40 mg Furosemide (Lasix) 20 mg IVPUSH ONETIME ONE Stop: 08/04/19 16:01 Last Admin: 08/04/19 16:40 Dose: 20 mg Furosemide (Lasix) 40 mg IVPUSH ONETIME ONE Stop: 08/05/19 08:01 Last Admin: 08/05/19 08:48 Dose: 40 mg Furosemide (Lasix) 40 mg IVPUSH ONETIME ONE Stop: 08/05/19 15:01 Last Admin: 08/05/19 15:28 Dose: 40 mg Furosemide (Lasix) 40 mg IVPUSH DAILY [facility] Last Admin: 08/06/19 08:10 Dose: 40 mg Furosemide (Lasix) 40 mg IVPUSH ONETIME ONE Stop: 08/06/19 15:01 Last Admin: 08/06/19 15:50 Dose: 40 mg Potassium Chloride (Klor-Con M20) 40 meq PO BID [facility] Last Admin: 08/06/19 17:24 Dose: Not Given - Exam Quality Assessment: No: Supplemental Oxygen General: Alert, Oriented, Cooperative, No Acute Distress Neck: JVD Lungs: Clear to Auscultation, Normal Respiratory Effort Cardiovascular: Regular Rate, Regular Rhythm, Murmurs GI/Abdominal Exam: Soft, No Distention Extremities: No Pedal Edema Psy/Mental Status: Alert, Normal Affect Sepsis Event Note - Evaluation Sepsis Screening Result: No Definite Risk - Focused Exam Vital Signs: Vital Signs Temp Pulse Pulse Resp BP BP Pulse Ox 08/07/19 08:21 105/68 08/07/19 07:31 91 08/07/19 07:26 36.4 C 93 20 96 08/07/19 03:41 35.9 C 87 16 95 Date Exam was Performed: 08/07/19 Time Exam was Performed: 14:01 - Problem List & Annotations (1) CHF (congestive heart failure), NYHA class III SNOMED Code(s): 271279102, 848672091 Code(s): I50.9 - HEART FAILURE, UNSPECIFIED Status: Acute Current Visit: Yes Qualifiers: Congestive heart failure type: diastolic Congestive heart failure chronicity: acute on chronic Qualified Code(s): I50.33 - Acute on chronic diastolic (congestive) heart failure (2) CKD (chronic kidney disease), stage III SNOMED Code(s): 282917684 Code(s): N18.3 - CHRONIC KIDNEY DISEASE, STAGE 3 (MODERATE) Status: Chronic Current Visit: Yes (3) Diabetes mellitus type II, controlled SNOMED Code(s): 56529038, 057584834 Code(s): E11.9 - TYPE 2 DIABETES MELLITUS WITHOUT COMPLICATIONS Status: Chronic Current Visit: Yes Qualifiers: Diabetes mellitus manager terminal insulin use: without manager terminal use Diabetes mellitus complication status: with unspecified complications Qualified Code(s) : E11.8 - Type 2 diabetes mellitus with unspecified complications (4) CAD (coronary artery disease) SNOMED Code(s): 94324125 Code(s): I25.10 - ATHSCL HEART DISEASE OF [place] CORONARY ARTERY W/O ANG PCTRS Status: Chronic Current Visit: Yes Qualifiers: Coronary Disease-Associated Artery/Lesion type: [place] artery [place] vs. transplanted heart: [place] heart Associated angina: with stable angina Qualified Code(s): I25.118 - Atherosclerotic heart disease of [place] coronary artery with other forms of angina pectoris (5) Elevated d-dimer SNOMED Code(s): 294595013 Code(s): R79.89 - OTHER SPECIFIED ABNORMAL FINDINGS OF BLOOD CHEMISTRY Status: Acute Current Visit: Yes - Problem List Review Problem List Initiated/Reviewed/Updated: Yes - My Orders Last 24 Hours: My Active Orders 08/07/19 08:00 Furosemide [Lasix] 40 mg IVPUSH DAILY 08/07/19 15:00 Furosemide [Lasix] 40 mg IVPUSH ONETIME ONE 08/08/19 05:00 BASIC METABOLIC PANEL,BMP [CHEM] Timed - Plan Plan:: ASSESSMENT AND PLAN - Congestive heart failure due to valvular disease (HFpEF)-acute on chronic exacerbation. He has a normal ejection fraction but has multiple valvular abnormalities including MR, TR, AI as well as some . Slowly improving with diuresis. Kidney function stable. Still still has some evidence for volume overload but this is better each day. -Furosemide 40 mg this morning and 40 this afternoon -Transition to oral tomorrow? -Continue carvedilol -Blood pressure too low to initiate ASHTYN inhibitor at this time -Supplement oxygen if needed Coronary artery disease-history of CABG about 20 years ago. Chest tightness seems to have resolved with diuresis. -Continue medical management Elevated d-dimer-no evidence for DVT and VQ scan was read as low probability. Pulmonary embolism is very unlikely with a much higher likelihood that his shortness of breath and chest tightness is related to his congestive heart failure. Type 2 diabetes mellitus-controlled with on oral medication. Stage III chronic kidney disease-kidney function stable. Maintenance issues - - DVT prophylaxis -KATIE stockings - GI prophylaxis -not indicated - Nutrition -consistent carbohydrates Disposition -I would anticipate discharge home, possibly with home care, after the hospital stay. Likely tomorrow if stable overnight. Primary care physician -MD Denzel Epstein M.D.
[2019-08-07] MEDS ORDERED: Furosemide 40 MG/4 ML VIAL IVPUSH ONE (15:00)
[2019-08-07] MEDS: Melatonin 3 MG Tab PO SCH (21:28)
[2019-08-08] MEDS: Pantoprazole 40 MG Tab.CR PO SCH (08:14)
[2019-08-08] MEDS: Glimepiride 2 MG Tab PO SCH (08:14)
[2019-08-08] MEDS: Carvedilol 6.25 MG Tab PO SCH (08:16)
[2019-08-08] MEDS: Aspirin 81 MG Tab.Chew PO SCH (08:16)
[2019-08-08] MEDS: Cyanocobalamin (Vitamin B12) 1,000 MCG Tab PO SCH (08:17)
[2019-08-08] MEDS: Finasteride 5 MG Tab PO SCH (08:17)
[2019-08-08] MEDS: Isosorbide Mononitrate 30 MG Tab.ER PO SCH (08:17)
[2019-08-08] MEDS: Furosemide 40 MG/4 ML VIAL IVPUSH SCH (08:17)
[2019-08-08] MEDS: Sertraline 50 MG Tab PO SCH (08:18)
--- NOTE | 2019-08-08 11:02 | PCM.DCSUM1 ---
Discharge Summary - Hospital Course Brief History: 84-year-old male with history of diastolic congestive heart failure and stage III chronic kidney disease who presented with weakness and dyspnea. He was admitted for management of an exacerbation of congestive heart failure. Diagnosis: Stroke: No - Discharge Data Discharge Date: 08/08/19 Discharge Disposition: Home, W Home Health Agency 06 Condition: Good - Referral to Home Health Date of Face to Face Encounter: 08/08/19 Reason for Homebound Status: dyspnea on exertion due to CHF Primary Care Physician: PCP None Skilled Need: Nursing to monitor CHF - Discharge Diagnosis/Problem(s) (1) CHF (congestive heart failure), NYHA class III SNOMED Code(s): 460104773, 581697672 ICD Code: I50.9 - HEART FAILURE, UNSPECIFIED Status: Acute Current Visit : Yes Qualifiers: Congestive heart failure type: diastolic Congestive heart failure chronicity: acute on chronic Qualified Code(s): I50.33 - Acute on chronic diastolic (congestive) heart failure (2) CKD (chronic kidney disease), stage III SNOMED Code(s): 168352351 ICD Code: N18.3 - CHRONIC KIDNEY DISEASE, STAGE 3 (MODERATE) Status: Chronic Current Visit: Yes (3) Diabetes mellitus type II, controlled SNOMED Code(s): 20462830, 365056742 ICD Code: E11.9 - TYPE 2 DIABETES MELLITUS WITHOUT COMPLICATIONS Status: Chronic Current Visit: Yes Qualifiers: Diabetes mellitus termite control technician insulin use: without termite control technician use Diabetes mellitus complication status: with unspecified complications Qualified Code(s) : E11.8 - Type 2 diabetes mellitus with unspecified complications (4) CAD (coronary artery disease) SNOMED Code(s): 93687787 ICD Code: I25.10 - ATHSCL HEART DISEASE OF [place] CORONARY ARTERY W/O ANG PCTRS Status: Chronic Current Visit: Yes Qualifiers: Coronary Disease-Associated Artery/Lesion type: [place] artery [place] vs. transplanted heart: [place] heart Associated angina: with stable angina Qualified Code(s): I25.118 - Atherosclerotic heart disease of [place] coronary artery with other forms of angina pectoris (5) Elevated d-dimer SNOMED Code(s): 596209092 ICD Code: R79.89 - OTHER SPECIFIED ABNORMAL FINDINGS OF BLOOD CHEMISTRY Status: Acute Current Visit: Yes - Patient Summary/Data Consults: Consultations 08/03/19 07:00 PT Evaluation and Treatment [CONS] Routine Please Evaluate and Treat. PT Reason for Consult: Strengthening This query below is only for informational purposes and is not editable. Hospital Course: Harpreet presented to the emergency room with progressive dyspnea as well as some chest tightness. Work-up in the emergency room was suggestive of an exacerbation of his congestive heart failure. There is no evidence for myocardial ischemia. The chest tightness was thought to be related to his congestive heart failure. He was admitted to the hospital for further management after IV diuretics were administered in the emergency room. His kidney function was near baseline at the time of admission. His ejection fraction was unknown so we did plan to get an echocardiogram when he came in. Over the first couple of days we had a marginal response to diuresis as far as output but symptomatically he did make some improvement in the first couple of days. On the second day of the hospital stay we did get an echocardiogram which showed a normal left ventricular function but did document moderate diastolic dysfunction as well as significant valvular abnormalities involving the aortic, mitral and tricuspid. We continued diuresis with 40 mg IV twice a day. Over the next couple of days we had a more dramatic improvement. His JVD slowly improved and symptoms slowly declined. He has been able to make progress and how far and how fast he can walk. His dyspnea has been steadily improving. Kidney function has remained stable throughout the hospital stay with diuresis. On the day of discharge his JVD has resolved. His lungs are clear. He feels well other than occasional cough. I believe he is euvolemic and should be safe for hospital discharge. His blood pressure has been on the low side of normal with systolic pressures in the 90s so I have not initiated an ASHTYN inhibitor for additional afterload reduction. I did increase his furosemide from 20 mg twice a day up to 40 mg twice a day at the time of hospital discharge. He has early follow-up planned. He was given some information about heart failure as well as heart failure action plan if his weight is rising or symptoms are progressing. - Patient Instructions Diet: Heart Healthy Diet Activity: As Tolerated Showering/Bathing: May Shower Notify Provider of: Fever, Increased Pain Other/Special Instructions: 1. Increase your furosemide (Lasix) to 40 mg twice daily (once in the morning and once in the early afternoon). 2. Please keep a diary of your weight each day or at least every other day. Alert your provider if you gain more than 2 lbs in one day or four pounds over a few days. 3. Follow up as scheduled to recheck your fluid status. 4. I have placed a referral to Home Care services to help ease your transition home from the hospital. - Discharge Plan *PRESCRIPTION DRUG MONITORING PROGRAM REVIEWED*: Not Applicable *COPY OF PRESCRIPTION DRUG MONITORING REPORT IN PATIENT LUIS: Not Applicable Prescriptions/Med Rec: Furosemide 40 mg PO BID #60 tablet Home Medications: Home Meds Aspirin 81 mg PO DAILY 05/13/19 [History] Cyanocobalamin (Vitamin B-12) [Vitamin B-12] 500 mcg PO DAILY 05/13/19 [History] Ferrous Gluconate 324 mg PO DAILY 05/13/19 [History] Finasteride 5 mg PO DAILY 05/13/19 [History] Glimepiride [Amaryl] 1 mg PO WITHBREAKFAST 05/13/19 [History] Hydrocortisone [Hydrocortisone 2.5% Crm] 30 gm .XX BID PRN 05/13/19 [History] Meclizine [Antivert] 25 mg PO DAILY 05/13/19 [History] Multivitamin [Multivitamins] 1 each PO DAILY 05/13/19 [History] Nitroglycerin [Nitrostat] 0.4 mg SL ASDIRECTED 05/13/19 [History] Omeprazole 20 mg PO ACBREAKFAST 05/13/19 [History] Sertraline [Zoloft] 100 mg PO DAILY 05/13/19 [History] carvediloL [Coreg] 6.25 mg PO BID 05/13/19 [History] ondansetron HCL [Ondansetron] 4 mg PO Q8HR PRN 05/13/19 [History] Hydrocortisone [Hydrocortisone 2.5% Crm] 30 gm TOP BID #1 tube 05/31/19 [Rx] Isosorbide Mononitrate 30 mg PO DAILY 08/02/19 [History] Furosemide 40 mg PO BID #60 tablet 08/08/19 [Rx] Oxygen Therapy Mode: Room Air Patient Handouts: Heart Failure Action Plan, Heart Failure Exacerbation Referrals: Tamir Edwards MD [Physician] - 08/12/19 2:00 pm (Please arrive 15 minutes early to register for your appointment.) - Discharge Summary/Plan Comment DC Time >30 min.: Yes (35-setting up home care ) - Patient Data Vitals - Most Recent: Last Vital Signs Temp 36.3 C 08/08/19 08:00 Pulse 85 08/08/19 08:16 Resp 16 08/08/19 08:00 BP 99/56 L 08/08/19 08:17 Pulse Ox 96 08/08/19 08:00 Weight - Most Recent: 78.018 kg I&O - Last 24 hours: Intake & Output 08/07/19 08/08/19 08/08/19 22:59 06:59 14:59 Intake Total 480 780 Output Total 250 200 125 Balance 230 -200 655 Lab Results - Last 24 hrs: Laboratory Results - last 24 hr 08/08/19 Range/Units 04:15 Sodium 142 (140-148) mmol/L Potassium 3.6 (3.6-5.2) mmol/L Chloride 102 (100-108) mmol/L Carbon Dioxide 28 (21-32) mmol/L Anion Gap 12.1 (5.0-14.0) mmol/L BUN 40 H (7-18) mg/dL Creatinine 1.6 H (0.8-1.3) mg/dL Est Cr Clr Drug Dosing 30.61 mL/min Estimated GFR (MDRD) 41 L (>60) Glucose 107 H (74-106) mg/dL Calcium 8.7 (8.5-10.1) mg/dL Med Orders - Current: Current Medications Acetaminophen (Tylenol) 650 mg PO Q4H PRN PRN Reason: Pain (Mild 1-3)/fever Last Admin: 08/03/19 20:25 Dose: 650 mg Albuterol (Proventil Neb Soln) 2.5 mg NEB Q4H PRN PRN Reason: Shortness Of Breath/wheezing Last Admin: 08/05/19 02:28 Dose: 2.5 mg Aspirin (Aspirin) 81 mg PO DAILY [facility] Last Admin: 08/08/19 08:16 Dose: 81 mg Calcium Carbonate/Glycine (Tums) 1,000 mg PO Q2H PRN PRN Reason: Indigestion Last Admin: 08/04/19 21:04 Dose: 1,000 mg Carvedilol (Coreg) 6.25 mg PO BIDMEALS [facility] Last Admin: 08/08/19 08:16 Dose: 6.25 mg Cyanocobalamin (Vitamin B12) 500 mcg PO DAILY [facility] Last Admin: 08/08/19 08:17 Dose: 500 mcg Finasteride (Proscar) 5 mg PO DAILY [facility] Last Admin: 08/08/19 08:17 Dose: 5 mg Furosemide (Lasix) 40 mg IVPUSH DAILY [facility] Last Admin: 08/08/19 08:17 Dose: 40 mg Glimepiride (Amaryl) 1 mg PO WITHBREAKFAST [facility] Last Admin: 08/08/19 08:14 Dose: 1 mg Isosorbide Mononitrate (Imdur) 30 mg PO DAILY [facility] Last Admin: 08/08/19 08:17 Dose: 30 mg Lorazepam (Ativan) 0.5 mg IVPUSH Q4H PRN PRN Reason: Nausea/Vomiting Magnesium Hydroxide (Milk Of Magnesia) 30 ml PO Q12H PRN PRN Reason: Constipation Melatonin (Melatonin) 9 mg PO BEDTIME [facility] Last Admin: 08/07/19 21:28 Dose: 9 mg Ondansetron HCl (Zofran Odt) 4 mg PO Q6H PRN PRN Reason: Nausea able to take PO Ondansetron HCl (Zofran) 4 mg IV Q6H PRN PRN Reason: Nausea/Vomiting Pantoprazole Sodium (Protonix) 40 mg PO ACBREAKFAST [facility] Last Admin: 08/08/19 08:14 Dose: 40 mg Senna/Docusate Sodium (Senna Plus) 1 tab PO BID PRN PRN Reason: Constipation Sertraline HCl (Zoloft) 100 mg PO DAILY [facility] Last Admin: 08/08/19 08:18 Dose: 100 mg Sodium Chloride (Saline Flush) 10 ml FLUSH ASDIRECTED PRN PRN Reason: Keep Vein Open Last Admin: 08/02/19 16:14 Dose: 10 ml Discontinued Medications Albuterol (Proventil Neb Soln) 2.5 mg NEB ONETIME ONE Stop: 08/02/19 15:46 Last Admin: 08/02/19 16:13 Dose: 2.5 mg Furosemide (Lasix) 40 mg IVPUSH ONETIME ONE Stop: 08/02/19 15:47 Last Admin: 08/02/19 16:13 Dose: 40 mg Furosemide (Lasix) 40 mg IVPUSH ONETIME ONE Stop: 08/03/19 08:01 Last Admin: 08/03/19 08:20 Dose: 40 mg Furosemide (Lasix) 40 mg IVPUSH ONETIME ONE Stop: 08/03/19 15:01 Last Admin: 08/03/19 15:26 Dose: 40 mg Furosemide (Lasix) 40 mg IVPUSH ONETIME ONE Stop: 08/04/19 08:01 Last Admin: 08/04/19 08:26 Dose: 40 mg Furosemide (Lasix) 20 mg IVPUSH ONETIME ONE Stop: 08/04/19 16:01 Last Admin: 08/04/19 16:40 Dose: 20 mg Furosemide (Lasix) 40 mg IVPUSH ONETIME ONE Stop: 08/05/19 08:01 Last Admin: 08/05/19 08:48 Dose: 40 mg Furosemide (Lasix) 40 mg IVPUSH ONETIME ONE Stop: 08/05/19 15:01 Last Admin: 08/05/19 15:28 Dose: 40 mg Furosemide (Lasix) 40 mg IVPUSH DAILY [facility] Last Admin: 08/06/19 08:10 Dose: 40 mg Furosemide (Lasix) 40 mg IVPUSH ONETIME ONE Stop: 08/06/19 15:01 Last Admin: 08/06/19 15:50 Dose: 40 mg Furosemide (Lasix) 40 mg IVPUSH ONETIME ONE Stop: 08/07/19 15:01 Last Admin: 08/07/19 15:19 Dose: 40 mg Potassium Chloride (Klor-Con M20) 40 meq PO BID [facility] Last Admin: 08/06/19 17:24 Dose: Not Given
[2019-08-08] MEDS: Calcium Carbonate 500 MG Tab.Chew PO PRN (11:35)
== END 2019-08-08 13:20 | disposition home health service (06) | DRG 293 ==
LOC: JP.ED 13:22 → JP.MS 18:18
PROVIDERS: ADMIT Internal Medicine; ATTEND Internal Medicine
DX: E87.70 Fluid overload, unspecified (principal); R53.1 Weakness; I50.33 Acute on chronic diastolic (congestive) heart failure; E11.22 Type 2 diabetes mellitus with diabetic chronic kidney disease; N18.3 Chronic kidney disease, stage 3 (moderate); I25.118 Atherosclerotic heart disease of native coronary artery with other forms of angina pectoris; I10 Essential (primary) hypertension; Z66 Do not resuscitate; R79.89 Other specified abnormal findings of blood chemistry; H54.7 Unspecified visual loss; R32 Unspecified urinary incontinence; E11.9 Type 2 diabetes mellitus without complications; I12.9 Hypertensive chronic kidney disease with stage 1 through stage 4 chronic kidney disease, or unspecified chronic kidney disease; G89.29 Other chronic pain; R79.1 Abnormal coagulation profile; I08.3 Combined rheumatic disorders of mitral, aortic and tricuspid valves; M54.9 Dorsalgia, unspecified; N42.9 Disorder of prostate, unspecified; Z79.82 Long term (current) use of aspirin; Z79.899 Other long term (current) drug therapy; Z79.84 Long term (current) use of oral hypoglycemic drugs; Z88.5 Allergy status to narcotic agent; Z88.2 Allergy status to sulfonamides; Z95.1 Presence of aortocoronary bypass graft; Z95.0 Presence of cardiac pacemaker; Z90.89 Acquired absence of other organs
CPT/HCPCS: 36415; 71046; 80053; 81001; 83880; 84443; 84484; 85025; 85379; 93005; 93010; 94640; 96374; 99284; 99285; J1940; 78582; 80048; 83735; 85027; 93306; 93971-RT; 97161-GP; A9270-GY; A9539; A9540

== ENCOUNTER 2019-08-24 22:07 | Inpatient (IN) | payer MEDICARE, OTHER ==
--- NOTE | 2019-08-24 22:34 | EDM.PDOC ---
ED HPI GENERAL MEDICAL PROBLEM - General Chief Complaint: General Stated Complaint: [facility] Time Seen by Provider: 08/24/19 22:10 Source of Information: Reports: Patient, EMS History Limitations: Reports: No Limitations - History of Present Illness INITIAL COMMENTS - FREE TEXT/NARRATIVE: 84-year-old male brought in by ambulance because of profound weakness. He was hospitalized within the last month for congestive heart failure, an echocardiogram showed mostly right heart failure and valvular disease. He was taken to [place] today by his neighbors for a LEYLA, when they brought him home he was weak. They helped him into his house and lay down on the floor and he would not get up. He spent 2 hours on the floor before they called the ambulance. When they arrived he was short of breath, confused, and extremely weak. He was not complaining of any pain. He did not want to be transferred but they did not feel comfortable leaving him because he was confused and obviously hypoxic. He responded well to nasal cannula oxygen in route, initially his O2 saturations were 88%. He now just complains of extreme weakness. Onset: Unknown/Unsure Associated Symptoms: Reports: Confusion, Cough (Has had a chronic cough for 2 months), Shortness of Breath, Weakness. Denies: Fever/Chills Treatments TECHNICAL SERVICES CONSULTANT: Reports: IV/IO Denies Pain Score (Numeric/FACES): 0 - Related Data Allergies Allergy/AdvReac Type Severity Reaction Status Date / Time codeine Allergy Severe Fever Verified 08/24/19 22:15 Sulfa (Sulfonamide Allergy Severe Rash Verified 08/24/19 22:15 Antibiotics) celecoxib Allergy Rash Verified 08/24/19 22:57 hydrochlorothiazide Allergy Cannot Verified 08/24/19 22:57 Remember Penicillins Allergy Rash Verified 08/24/19 22:57 pioglitazone Allergy Rash Verified 08/24/19 22:57 tramadol Allergy Cannot Verified 08/24/19 22:57 Remember venlafaxine Allergy Cannot Verified 08/24/19 22:57 Remember Home Meds: Home Meds Aspirin 81 mg PO DAILY 05/13/19 [History] Cyanocobalamin (Vitamin B-12) [Vitamin B-12] 500 mcg PO DAILY 05/13/19 [History] Finasteride 5 mg PO DAILY 05/13/19 [History] Glimepiride [Amaryl] 1 mg PO WITHBREAKFAST 05/13/19 [History] Multivitamin [Multivitamins] 1 each PO DAILY 05/13/19 [History] Nitroglycerin [Nitrostat] 0.4 mg SL ASDIRECTED 05/13/19 [History] Omeprazole 40 mg PO ACBREAKFAST 05/13/19 [History] Sertraline [Zoloft] 150 mg PO DAILY 05/13/19 [History] carvediloL [Coreg] 12.5 mg PO BID 05/13/19 [History] Hydrocortisone [Hydrocortisone 2.5% Crm] 30 gm TOP BID #1 tube 05/31/19 [Rx] Isosorbide Mononitrate 30 mg PO DAILY 08/02/19 [History] Fluticasone Propionate [Flonase Allergy Relief] 2 spray BRAEDEN DAILY 08/10/19 [ History] Furosemide 20 mg PO BID 08/10/19 [History] Olopatadine [Patanol 0.1% Ophth Soln] 1 drop EYEBOTH DAILY 08/10/19 [History] polyethylene glycoL 3350 [Miralax] 8.5 - 17 g PO DAILY PRN 08/10/19 [History] Benzonatate 100 mg PO TID PRN 08/24/19 [History] Past Medical History HEENT History: Reports: Impaired Vision Cardiovascular History: Reports: Angina, Bypass, Hypertension, Pacemaker, SOB on Exertion, Other (See Below) Other Cardiovascular History: leaking valves Respiratory History: Reports: SOB Genitourinary History: Reports: Prostate Disorder, Urinary Incontinence Musculoskeletal History: Reports: Back Pain, Chronic, Fracture, Other (See Below ) Other Musculoskeletal History: R fib Fx 05/13/19 Neurological History: Reports: Concussion Psychiatric History: Reports: None Endocrine/Metabolic History: Reports: Diabetes, Type II Hematologic History: Reports: None Immunologic History: Reports: None Oncologic (Cancer) History: Reports: None Dermatologic History: Reports: Other (See Below) Other Dermatologic History: dermatitis - Infectious Disease History Infectious Disease History: Reports: Chicken Pox, Measles, Mumps - Past Surgical History HEENT Surgical History: Reports: Tonsillectomy Cardiovascular Surgical History: Reports: Coronary Artery Bypass, Other (See Below) Other Cardiovascular Surgeries/Procedures: LEYLA GI Surgical History: Reports: Appendectomy, Harjit Fundoplication Musculoskeletal Surgical History: Reports: None Social & Family History - Family History Family Medical History: Noncontributory Cardiac: Reports: [place] - Tobacco Use Smoking Status *Q: Never Smoker Second Hand Smoke Exposure: No - Caffeine Use Caffeine Use: Reports: Coffee, Soda - Recreational Drug Use Recreational Drug Use: No ED ROS GENERAL - Review of Systems Review Of Systems: See Below Constitutional: Reports: Malaise, Weakness, Decreased Appetite. Denies: Fever, Chills HEENT: Denies: Throat Pain Respiratory: Reports: Shortness of Breath, Cough Cardiovascular: Denies: Chest Pain, Palpitations GI/Abdominal: Reports: Other (Had a transesophageal echocardiogram today). Denies: Abdominal Pain, Nausea, Vomiting : Denies: Frequency, Urgency Skin: Reports: Pallor Psychiatric: Reports: No Symptoms ED EXAM, GENERAL - Physical Exam Exam: See Below Exam Limited By: No Limitations General Appearance: Alert, No Apparent Distress, Other (Patient looks very weak , pale, ill with mild shortness of breath) Eye Exam: Bilateral Eye: EOMI (No jaundice) Head: Atraumatic Respiratory/Chest: No Respiratory Distress, Other (A few crackles are heard in the extreme right base, otherwise no wheezing, lungs are clear) Cardiovascular: Regular Rate, Rhythm (Heart sounds are distant) GI/Abdominal: Soft, Non-Tender Extremities: Pedal Edema (1+ symmetric ankle edema) Neurological: Alert, Oriented Psychiatric: Depressed Mood, Flat Affect Skin Exam: Warm, Dry Course - Vital Signs Last Recorded V/S: Last Vital Signs Temp 99.5 F 08/25/19 01:00 Pulse 62 08/25/19 01:00 Resp 18 08/25/19 01:00 BP 126/66 08/25/19 01:00 Pulse Ox 95 08/25/19 01:42 - Orders/Labs/Meds Orders: Active Orders 24 hr Category Date Time Status Chest 1V Frontal [CR] Stat Exams 08/24/19 22:34 Taken Medication Orders Acetaminophen (Tylenol) 650 mg PO Q4H PRN PRN Reason: Pain (Mild 1-3)/fever Aspirin (Halfprin) 81 mg PO DAILY NABILA Benzonatate (Tessalon Perles) 100 mg PO TID PRN PRN Reason: Cough Carvedilol (Coreg) 12.5 mg PO BIDMEALS [facility] Last Admin: 08/25/19 01:50 Dose: Docusate Sodium (Colace) 100 mg PO BID PRN PRN Reason: Constipation Finasteride (Proscar) 5 mg PO DAILY [facility] Furosemide (Lasix) 20 mg PO BIDDIURETIC NABILA Last Admin: 08/25/19 01:51 Dose: Glimepiride (Amaryl) 1 mg PO WITHBREAKFAST NABILA Sodium Chloride (Normal Saline) 1,000 mls @ 100 mls/hr IV ASDIRECTED [facility] Last Admin: 08/25/19 01:22 Dose: 100 mls/hr Nitroglycerin (Nitrostat) 0.4 mg SL ASDIRECTED [facility] Non-Formulary Medication (Isosorbide Mononitrate [Isosorbide Mononitrate]) 30 mg PO DAILY NABILA Ondansetron HCl (Zofran Odt) 4 mg PO Q6H PRN PRN Reason: Nausea able to take PO Ondansetron HCl (Zofran) 4 mg IV Q4H PRN PRN Reason: Nausea/Vomiting Pantoprazole Sodium (Protonix) 40 mg PO ACBREAKFAST [facility] Polyethylene Glycol (Miralax) 17 gm PO DAILY PRN PRN Reason: CONSTIPATION Sertraline HCl (Zoloft) 150 mg PO DAILY [facility] Labs: Laboratory Tests 08/24/19 08/24/19 08/24/19 Range/Units 22:59 22:59 22:59 WBC 12.7 H (4.5-11.0) K/uL RBC 5.28 (4.30-5.90) M/uL Hgb 15.0 (12.0-15.0) g/dL Hct 47.9 (40.0-54.0) % MCV 91 (80-98) fL MCH 28 (27-31) pg MCHC 31 L (32-36) % Plt Count 216 (150-400) K/uL Neut % (Auto) 92 H (36-66) % Lymph % (Auto) 3 L (24-44) % Pickett % (Auto) 5 (2-6) % Eos % (Auto) 0 L (2-4) % Baso % (Auto) 0 (0-1) % Sodium 141 (140-148) mmol/L Potassium 4.7 (3.6-5.2) mmol/L Chloride 103 (100-108) mmol/L Carbon Dioxide 21 (21-32) mmol/L Anion Gap 16.9 H (5.0-14.0) mmol/L BUN 34 H (7-18) mg/dL Creatinine 2.0 H (0.8-1.3) mg/dL Est Cr Clr Drug Dosing 24.35 mL/min Estimated GFR (MDRD) 32 L (>60) Glucose 127 H (74-106) mg/dL Calcium 8.8 (8.5-10.1) mg/dL Total Bilirubin 2.4 H D (0.2-1.0) mg/dL AST 309 H D (15-37) U/L ALT 206 H (12-78) U/L Alkaline Phosphatase 152 H (46-116) U/L Creatine Kinase 82 (39-308) U/L Troponin I 0.031 (0.000-0.056) ng/mL Total Protein 7.3 (6.4-8.2) g/dL Albumin 3.2 L (3.4-5.0) g/dL Globulin 4.1 H (2.3-3.5) g/dL Albumin/Globulin Ratio 0.8 L (1.2-2.2) Meds: Medications Generic Name Dose Route Start Last Admin Trade Name Freq PRN Reason Stop Dose Admin Acetaminophen 650 mg 08/25/19 01:02 Tylenol PO Q4H PRN Pain (Mild 1-3)/fever Aspirin 81 mg 08/25/19 09:00 Halfprin PO DAILY NABILA Benzonatate 100 mg 08/25/19 01:02 Tessalon Perles PO TID PRN Cough Carvedilol 12.5 mg 08/25/19 01:02 08/25/19 01:50 Coreg PO Not Given BIDMEALS [facility] Docusate Sodium 100 mg 08/25/19 01:02 Colace PO BID PRN Constipation Finasteride 5 mg 08/25/19 09:00 Proscar PO DAILY NABILA Furosemide 20 mg 08/25/19 01:02 08/25/19 01:51 Lasix PO Not Given BIDDIURETIC NABILA Glimepiride 1 mg 08/25/19 08:00 Amaryl PO WITHBREAKFAST NABILA Sodium Chloride 1,000 mls @ 100 mls/hr 08/25/19 01:02 08/25/19 01:22 Normal Saline IV 100 mls/hr ASDIRECTED NABILA Administration Nitroglycerin 0.4 mg 08/25/19 01:02 Nitrostat SL ASDIRECTED [facility] Non-Formulary Medication 30 mg 08/25/19 09:00 Isosorbide Mononitrate [Isosorbide Mononitrate] PO DAILY [facility] Ondansetron HCl 4 mg 08/25/19 01:02 Zofran Odt PO Q6H PRN Nausea able to take PO Ondansetron HCl 4 mg 08/25/19 01:02 Zofran IV Q4H PRN Nausea/Vomiting Pantoprazole Sodium 40 mg 08/25/19 07:30 Protonix PO ACBREAKFAST [facility] Polyethylene Glycol 17 gm 08/25/19 01:15 Miralax PO DAILY PRN CONSTIPATION Sertraline HCl 150 mg 08/25/19 09:00 Zoloft PO DAILY [facility] - Re-Assessments/Exams Free Text/Narrative Re-Assessment/Exam: 08/24/19 23:07 O2 was stopped after arrival, patient remained saturations at 91 to 92%. ABGs on room air were obtained as well as CBC, CMP, CK and troponin 08/24/19 23:10 CBC returned generally normal, normal hemoglobin and mildly elevated WBC count. Chest x-ray showed no significant failure or effusions. No infiltrates. 08/24/19 23:32 Patient calm down significantly without treatment, respiratory rate normalized and he became more comfortable and started asking for something to eat. Still remained profoundly weak, unable to even sit up under his own power. LFTs are elevated which are a new finding compared to 1 month ago. He has no nausea or abdominal pain. Possibly due to right congestive heart failure or his procedures done earlier today in [place]. Plan is to admit to the hospitalist service for observation tonight and repeat labs in the morning. Departure - Departure Time of Disposition: 00:57 Disposition: Admitted As Inpatient 65 Clinical Impression: Generalized weakness, Elevated liver enzymes CHF (congestive heart failure), NYHA class III Qualifiers: Congestive heart failure type: diastolic Congestive heart failure chronicity: acute on chronic Qualified Code(s): I50.33 - Acute on chronic diastolic ( congestive) heart failure - Discharge Information Sepsis Event Note - Evaluation Sepsis Screening Result: No Definite Risk - Focused Exam Vital Signs: Vital Signs Temp Pulse Resp BP Pulse Ox 08/24/19 23:01 63 36 H 140/62 96 08/24/19 22:26 98.9 F 66 33 H 142/66 H 92 L 08/24/19 22:13 98.9 F 66 33 H 142/66 H 92 L Date Exam was Performed: 08/25/19 Time Exam was Performed: 04:23 - My Orders Last 24 Hours: My Active Orders 08/24/19 22:34 Chest 1V Frontal [CR] Stat - Assessment/Plan Last 24 Hours: My Active Orders 08/24/19 22:34 Chest 1V Frontal [CR] Stat
--- NOTE | 2019-08-24 23:29 | PCM.HP.2 ---
H&P History of Present Illness - General Date of Service: 08/24/19 Source of Information: Patient, EMS, Provider History Limitations: Reports: No Limitations - History of Present Illness Initial Comments - Free Text/Narative: - History of Present Illness INITIAL COMMENTS - FREE TEXT/NARRATIVE: weakness 84-year-old male brought in by ambulance because of profound weakness. He was hospitalized within the last month for congestive heart failure, an echocardiogram showed mostly right heart failure and valvular disease. He was taken to [place] today by his neighbors for a LEYLA, when they brought him home he was weak. They helped him into his house and lay down on the floor and he would not get up. He spent 2 hours on the floor before they called the ambulance. When they arrived he was short of breath, confused, and extremely weak. He was not complaining of any pain. He did not want to be transferred but they did not feel comfortable leaving him because he was confused and obviously hypoxic. He responded well to nasal cannula oxygen in route, initially his O2 saturations were 88%. He now just complains of extreme weakness. Onset: Unknown/Unsure Associated Symptoms: Reports: Confusion, Cough (Has had a chronic cough for 2 months), Shortness of Breath, Weakness. Denies: Fever/Chills Treatments DOORSHAKER: Reports: IV/IO Denies 08/24/19 23:07 O2 was stopped after arrival, patient remained saturations at 91 to 92%. ABGs on room air were obtained as well as CBC, CMP, CK and troponin 08/24/19 23:10 CBC returned generally normal, normal hemoglobin and mildly elevated WBC count. Chest x-ray showed no significant failure or effusions. No infiltrates. 08/24/19 23:32 Patient calm down significantly without treatment, respiratory rate normalized and he became more comfortable and started asking for something to eat. Still remained profoundly weak, unable to even sit up under his own power. LFTs are elevated which are a new finding compared to 1 month ago. He has no nausea or abdominal pain. Possibly due to right congestive heart failure or his procedures done earlier today in [place]. Plan is to admit to the hospitalist service for observation tonight and repeat labs in the morning. Onset of Symptoms: Reports: Today Duration of Symptoms: Reports: Getting Worse Location: Reports: Generalized Severity: Severe Improves with: Reports: Rest Worsens with: Reports: Movement Associated Symptoms: Reports: Weakness Denies Pain Score (Numeric/FACES): 0 - Related Data Allergies/Adverse Reactions: Allergies Allergy/AdvReac Type Severity Reaction Status Date / Time codeine Allergy Severe Fever Verified 08/24/19 22:15 Sulfa (Sulfonamide Allergy Severe Rash Verified 08/24/19 22:15 Antibiotics) celecoxib Allergy Rash Verified 08/24/19 22:57 hydrochlorothiazide Allergy Cannot Verified 08/24/19 22:57 Remember Penicillins Allergy Rash Verified 08/24/19 22:57 pioglitazone Allergy Rash Verified 08/24/19 22:57 tramadol Allergy Cannot Verified 08/24/19 22:57 Remember venlafaxine Allergy Cannot Verified 08/24/19 22:57 Remember Home Medications: Home Meds Aspirin 81 mg PO DAILY 05/13/19 [History] Cyanocobalamin (Vitamin B-12) [Vitamin B-12] 500 mcg PO DAILY 05/13/19 [History] Finasteride 5 mg PO DAILY 05/13/19 [History] Glimepiride [Amaryl] 1 mg PO WITHBREAKFAST 05/13/19 [History] Multivitamin [Multivitamins] 1 each PO DAILY 05/13/19 [History] Nitroglycerin [Nitrostat] 0.4 mg SL ASDIRECTED 05/13/19 [History] Omeprazole 40 mg PO ACBREAKFAST 05/13/19 [History] Sertraline [Zoloft] 150 mg PO DAILY 05/13/19 [History] carvediloL [Coreg] 12.5 mg PO BID 05/13/19 [History] Hydrocortisone [Hydrocortisone 2.5% Crm] 30 gm TOP BID #1 tube 05/31/19 [Rx] Isosorbide Mononitrate 30 mg PO DAILY 08/02/19 [History] Fluticasone Propionate [Flonase Allergy Relief] 2 spray BRAEDEN DAILY 08/10/19 [ History] Furosemide 20 mg PO BID 08/10/19 [History] Olopatadine [Patanol 0.1% Ophth Soln] 1 drop EYEBOTH DAILY 08/10/19 [History] polyethylene glycoL 3350 [Miralax] 8.5 - 17 g PO DAILY PRN 08/10/19 [History] Benzonatate 100 mg PO TID PRN 08/24/19 [History] Past Medical History HEENT History: Reports: Impaired Vision Cardiovascular History: Reports: Angina, Bypass, Hypertension, Pacemaker, SOB on Exertion, Other (See Below) Other Cardiovascular History: leaking valves Respiratory History: Reports: SOB Genitourinary History: Reports: Prostate Disorder, Urinary Incontinence Musculoskeletal History: Reports: Back Pain, Chronic, Fracture, Other (See Below ) Other Musculoskeletal History: R fib Fx 05/13/19 Neurological History: Reports: Concussion Psychiatric History: Reports: None Endocrine/Metabolic History: Reports: Diabetes, Type II Hematologic History: Reports: None Immunologic History: Reports: None Oncologic (Cancer) History: Reports: None Dermatologic History: Reports: Other (See Below) Other Dermatologic History: dermatitis - Infectious Disease History Infectious Disease History: Reports: Chicken Pox, Measles, Mumps - Past Surgical History HEENT Surgical History: Reports: Tonsillectomy Cardiovascular Surgical History: Reports: Coronary Artery Bypass, Other (See Below) Other Cardiovascular Surgeries/Procedures: LEYLA GI Surgical History: Reports: Appendectomy, Harjit Fundoplication Musculoskeletal Surgical History: Reports: None Social & Family History - Family History Family Medical History: Noncontributory Cardiac: Reports: OR - Tobacco Use Smoking Status *Q: Never Smoker Second Hand Smoke Exposure: No - Caffeine Use Caffeine Use: Reports: Coffee, Soda - Recreational Drug Use Recreational Drug Use: No - Living Situation & Occupation Occupation: Retired (lives alone in [place], has a Friend who drives him to appoinments and checks on him. has 4 Adult Children - 2 in [place]. 2 in [place] - they are not involved in his care.) H&P Review of Systems - Review of Systems: Review Of Systems: See Below General: Reports: Weakness HEENT: Reports: Glasses Pulmonary: Reports: No Symptoms Cardiovascular: Reports: No Symptoms Gastrointestinal: Reports: No Symptoms Genitourinary: Reports: No Symptoms Musculoskeletal: Reports: No Symptoms Skin: Reports: No Symptoms Psychiatric: Reports: No Symptoms Neurological: Reports: Weakness Hematologic/Lymphatic: Reports: No Symptoms Immunologic: Reports: No Symptoms Exam - Exam Exam: See Below - Vital Signs Vital Signs: Last Vital Signs Temp 37.2 C 08/24/19 22:26 Pulse 63 08/24/19 23:01 Resp 36 H 08/24/19 23:01 BP 140/62 08/24/19 23:01 Pulse Ox 96 08/24/19 23:01 Weight: 79.3 kg - Exam Quality Assessment: Supplemental Oxygen (nasal cannula at 2 per hr. ) General: Alert, Oriented, Cooperative HEENT: PERRLA, Conjunctiva Clear, EOMI, Hearing Intact, Glasses, Other (mouth dry) Neck: Supple, Trachea Midline Lungs: Clear to Auscultation, Normal Respiratory Effort Cardiovascular: Irregular Rhythm, Other GI/Abdominal Exam: Normal Bowel Sounds, Soft, Non-Tender, No Distention (Male) Exam: Deferred Rectal (Males) Exam: Deferred Back Exam: Normal Inspection Extremities: Pedal Edema (1+), Slow Capillary Refill Peripheral Pulses: 2+: Radial (L), Radial (R) Skin: Warm, Dry, Intact Neurological: Strength Equal Bilateral, Normal Speech, Normal Tone Neuro Extensive - Mental Status: Alert, Oriented x3, Normal Mood/Affect Neuro Extensive - Motor, Sensory, Reflexes: Motor/Sensory Deficits Psychiatric: Alert, Normal Affect, Normal Mood (Mr. Tolbert is finishing his supper, appears more alert, pleasant. appear fragile elderly male.) - Patient Data Lab Results Last 24 hrs: Laboratory Results - last 24 hr 08/24/19 08/24/19 08/24/19 Range/Units 22:59 22:59 22:59 WBC 12.7 H (4.5-11.0) K/uL RBC 5.28 (4.30-5.90) M/uL Hgb 15.0 (12.0-15.0) g/dL Hct 47.9 (40.0-54.0) % MCV 91 (80-98) fL MCH 28 (27-31) pg MCHC 31 L (32-36) % Plt Count 216 (150-400) K/uL Neut % (Auto) 92 H (36-66) % Lymph % (Auto) 3 L (24-44) % Mills % (Auto) 5 (2-6) % Eos % (Auto) 0 L (2-4) % Baso % (Auto) 0 (0-1) % Sodium 141 (140-148) mmol/L Potassium 4.7 (3.6-5.2) mmol/L Chloride 103 (100-108) mmol/L Carbon Dioxide 21 (21-32) mmol/L Anion Gap 16.9 H (5.0-14.0) mmol/L BUN 34 H (7-18) mg/dL Creatinine 2.0 H (0.8-1.3) mg/dL Est Cr Clr Drug Dosing 24.35 mL/min Estimated GFR (MDRD) 32 L (>60) Glucose 127 H (74-106) mg/dL Calcium 8.8 (8.5-10.1) mg/dL Total Bilirubin 2.4 H D (0.2-1.0) mg/dL AST 309 H D (15-37) U/L ALT 206 H (12-78) U/L Alkaline Phosphatase 152 H (46-116) U/L Creatine Kinase 82 (39-308) U/L Troponin I 0.031 (0.000-0.056) ng/mL Total Protein 7.3 (6.4-8.2) g/dL Albumin 3.2 L (3.4-5.0) g/dL Globulin 4.1 H (2.3-3.5) g/dL Albumin/Globulin Ratio 0.8 L (1.2-2.2) Result Diagrams: 08/24/19 22:59 08/24/19 22:59 Sepsis Event Note - Evaluation Sepsis Screening Result: No Definite Risk - Focused Exam Vital Signs: Vital Signs Temp Pulse Resp BP Pulse Ox 08/24/19 23:01 63 36 H 140/62 96 08/24/19 22:26 37.2 C 66 33 H 142/66 H 92 L 08/24/19 22:13 37.2 C 66 33 H 142/66 H 92 L Date Exam was Performed: 08/25/19 Time Exam was Performed: 00:07 - Problem List (1) Weakness SNOMED Code(s): 44522208 ICD Code: R53.1 - WEAKNESS Status: Acute Priority: High Current Visit: Yes (2) CAD (coronary artery disease) SNOMED Code(s): 31012523 ICD Code: I25.10 - ATHSCL HEART DISEASE OF [place] CORONARY ARTERY W/O ANG PCTRS Status: Chronic Priority: Low Current Visit: No Qualifiers: Coronary Disease-Associated Artery/Lesion type: [place] artery [place] vs. transplanted heart: [place] heart Associated angina: with stable angina Qualified Code(s): I25.118 - Atherosclerotic heart disease of [place] coronary artery with other forms of angina pectoris (3) Diabetes mellitus type II, controlled SNOMED Code(s): 10783085, 660689694 ICD Code: E11.9 - TYPE 2 DIABETES MELLITUS WITHOUT COMPLICATIONS Status: Chronic Priority: Low Current Visit: No Qualifiers: Diabetes mellitus fdc insulin use: without emt intermediate use Diabetes mellitus complication status: with unspecified complications Qualified Code(s) : E11.8 - Type 2 diabetes mellitus with unspecified complications Problem List Initiated/Reviewed/Updated: Yes Orders Last 24hrs: Active Orders 24 hr Category Date Time Status Chest 1V Frontal [CR] Stat Exams 08/24/19 22:34 Taken ABG [BLOOD GAS ARTERIAL] [BG] Stat Lab 08/24/19 22:33 Ordered Assessment/Plan Comment:: INITIAL COMMENTS - FREE TEXT/NARRATIVE: weakness 84-year-old male brought in by ambulance because of profound weakness. He was hospitalized within the last month for congestive heart failure, an echocardiogram showed mostly right heart failure and valvular disease. He was taken to [place] today by his neighbors for a LEYLA, when they brought him home he was weak. They helped him into his house and lay down on the floor and he would not get up. He spent 2 hours on the floor before they called the ambulance. When they arrived he was short of breath, confused, and extremely weak. He was not complaining of any pain. He did not want to be transferred but they did not feel comfortable leaving him because he was confused and obviously hypoxic. He responded well to nasal cannula oxygen in route, initially his O2 saturations were 88%. He now just complains of extreme weakness. Onset: Unknown/Unsure Associated Symptoms: Reports: Confusion, Cough (Has had a chronic cough for 2 months), Shortness of Breath, Weakness. Denies: Fever/Chills Treatments DOORSHAKER: Reports: IV/IO Denies 08/24/19 23:07 O2 was stopped after arrival, patient remained saturations at 91 to 92%. ABGs on room air were obtained as well as CBC, CMP, CK and troponin 08/24/19 23:10 CBC returned generally normal, normal hemoglobin and mildly elevated WBC count. Chest x-ray showed no significant failure or effusions. No infiltrates. 08/24/19 23:32 Patient calm down significantly without treatment, respiratory rate normalized and he became more comfortable and started asking for something to eat. Still remained profoundly weak, unable to even sit up under his own power. LFTs are elevated which are a new finding compared to 1 month ago. He has no nausea or abdominal pain. Possibly due to right congestive heart failure or his procedures done earlier today in [place]. Plan is to admit to the hospitalist service for observation tonight and repeat labs in the morning. Weakness -IV fluids for hydration, Normal Saline 100 ml/hr -rest -Protonix 40 mg IV daily -am labs cbc, bmp Type 2 diabetes mellitus - patient denies any concerns. oral medications - no insulin. -blood glucose checking before meals and evening -continue outpatient medications -lab; bmp in am. Cardiovascular disease - history of bypass surgery, pacemaker -continue Outpatient medication -cardiac monitoring. MAINTENANCE ISSUES -DVT Prophylaxis SCD -GI prophylaxis- Protonix as above -Reza catheter not indicated -Nutrition Consistent Carb diet CODE STATUS DNR/DNI ADMISSION This patient will be admitted to observation status, expect no more than one night hospital stay for evaluation and management of problems outline above. DISPOSITION anticipate discharge to home after the hospital stay PRIMARY CARE PROVIDER Dr. Taylor Tipton. [facility] HOSPITALIST Dr. Navarro
[2019-08-25] MEDS ORDERED: Ondansetron 4 MG Tab.DIS PO PRN (01:02)
[2019-08-25] MEDS ORDERED: Acetaminophen 325 MG Tab PO PRN (01:02)
[2019-08-25] MEDS ORDERED: Ondansetron 4 MG/2 ML SDV IV PRN (01:02)
[2019-08-25] MEDS ORDERED: Docusate Sodium 100 MG Cap PO PRN (01:02)
[2019-08-25] MEDS ORDERED: Nitroglycerin 0.4 MG Tab.SL SL SCH (01:02)
[2019-08-25] MEDS ORDERED: Polyethylene Glycol 3350 Powder 17 GM Packet PO PRN (01:15)
[2019-08-25] MEDS: Sodium Chloride 0.9% 1,000 ML IV SCH ×2 (01:22→10:57)
[2019-08-25] MEDS: Carvedilol 12.5 MG Tab PO SCH ×3 (01:50→16:42)
[2019-08-25] MEDS: Furosemide 20 MG Tab PO SCH ×3 (01:51→14:19)
[2019-08-25] MEDS: Isosorbide Mononitrate 30 MG Tab.ER PO SCH (07:27)
[2019-08-25] MEDS: Pantoprazole 40 MG Tab.CR PO SCH (07:28)
[2019-08-25] MEDS ORDERED: Non-Formulary Medication 1 Each (Omeprazole [Omeprazole] 40 MG) PO SCH (07:30)
[2019-08-25] MEDS: Glimepiride 2 MG Tab PO SCH (07:36)
[2019-08-25] MEDS: Aspirin 81 MG Tab.EC PO SCH (08:58)
[2019-08-25] MEDS: Finasteride 5 MG Tab PO SCH (08:58)
[2019-08-25] MEDS: Sertraline 50 MG Tab PO SCH (09:00)
--- NOTE | 2019-08-25 10:05 | CR ---
CHEST: Portable 08/24/2019 at 1102 CLINICAL HISTORY:Weakness COMPARISON:08/05/2019 FINDINGS: Heart is mildly enlarged pulmonary vascularity appears normal. Patient has a permanent cardiac pacer. There has been previous sternotomy. There are atherosclerotic changes in the aorta. There is some right-sided pleural thickening. No infiltrate or effusion is seen. Impression: No acute cardiopulmonary process or significant change from prior study
--- NOTE | 2019-08-25 10:12 | US ---
Abdomen Comp CLINICAL HISTORY: Elevated liver enzymes COMPARISON: None. FINDINGS: The liver is free of mass or biliary dilatation. There is normal parenchymal echogenicity. Left lobe is partially obscured. The gallbladder has a normal appearance. The common duct measures 4 mm. The pancreas is moderately obscured. No masses seen. Kidneys are free of mass, stones or hydronephrosis.The aorta is not aneurysmal. The inferior vena cava is unremarkable. The spleen has a normal size and shape. IMPRESSION: Left lobe liver and pancreas are moderately obscured No mass, biliary dilatation or abnormal fluid collections identified
[2019-08-25] MEDS ORDERED: 50% Dextrose in Water 50 ML Syringe IV PRN (13:07)
[2019-08-25] MEDS ORDERED: Glucose Gel 15 GM in 37.5 GM Tube PO PRN (13:07)
--- NOTE | 2019-08-25 13:13 | PCM.PN ---
- General Info Date of Service: 08/25/19 Subjective Update: Mr. Tolbert is an 84-year-old gentleman who was admitted through the emergency department last night with profound weakness. He was hospitalized at this facility for congestive heart failure exacerbation earlier this month. Echocardiogram at that time showed decrease left ventricular function with estimated ejection fraction of 35 to 40%. Also noted was severe MR, moderate MS , severe TR, mild left ear and AI. Right ventricular function was felt to be decreased as well. He is feeling better today after hydration. Liver enzymes are significantly elevated and had been within normal range at the time of his last hospitalization. He denies any symptoms of nausea vomiting, appetite has been fair. Also denies any symptoms of abdominal pain. Abdominal ultrasound is been obtained and shows no obvious abnormalities. White blood cell count is elevated as well as mild elevation in lactic acid level. Functional Status: Reports: Tolerating Diet, Ambulating, Urinating - Review of Systems General: Reports: Weakness. Denies: Fever, Chills Pulmonary: Reports: No Symptoms Cardiovascular: Reports: No Symptoms Gastrointestinal: Reports: No Symptoms - Patient Data Vitals - Most Recent: Last Vital Signs Temp 96.6 F L 08/25/19 12:16 Pulse 95 08/25/19 12:16 Resp 36 H 08/25/19 12:16 BP 110/75 08/25/19 12:16 Pulse Ox 95 08/25/19 12:16 Weight - Most Recent: 166 lb 8 oz I&O - Last 24 Hours: Intake & Output 08/24/19 08/25/19 08/25/19 22:59 06:59 14:59 Intake Total 421 Output Total 200 Balance 421 -200 Lab Results Last 24 Hours: Laboratory Results - last 24 hr 08/24/19 08/24/19 08/24/19 Range/Units 22:59 22:59 22:59 WBC 12.7 H (4.5-11.0) K/uL RBC 5.28 (4.30-5.90) M/uL Hgb 15.0 (12.0-15.0) g/dL Hct 47.9 (40.0-54.0) % MCV 91 (80-98) fL MCH 28 (27-31) pg MCHC 31 L (32-36) % Plt Count 216 (150-400) K/uL Neut % (Auto) 92 H (36-66) % Lymph % (Auto) 3 L (24-44) % [place] % (Auto) 5 (2-6) % Eos % (Auto) 0 L (2-4) % Baso % (Auto) 0 (0-1) % Sodium 141 (140-148) mmol/L Potassium 4.7 (3.6-5.2) mmol/L Chloride 103 (100-108) mmol/L Carbon Dioxide 21 (21-32) mmol/L Anion Gap 16.9 H (5.0-14.0) mmol/L BUN 34 H (7-18) mg/dL Creatinine 2.0 H (0.8-1.3) mg/dL Est Cr Clr Drug Dosing 24.35 mL/min Estimated GFR (MDRD) 32 L (>60) Glucose 127 H (74-106) mg/dL Lactic Acid (0.4-2.0) mmol/L Calcium 8.8 (8.5-10.1) mg/dL Total Bilirubin 2.4 H D (0.2-1.0) mg/dL Direct Bilirubin (0.0-0.2) mg/dL Indirect Bilirubin AST 309 H D (15-37) U/L ALT 206 H (12-78) U/L Alkaline Phosphatase 152 H (46-116) U/L Creatine Kinase 82 (39-308) U/L Troponin I 0.031 (0.000-0.056) ng/mL Total Protein 7.3 (6.4-8.2) g/dL Albumin 3.2 L (3.4-5.0) g/dL Globulin 4.1 H (2.3-3.5) g/dL Albumin/Globulin Ratio 0.8 L (1.2-2.2) Lipase (73-393) U/L 08/25/19 08/25/19 08/25/19 Range/Units 03:58 03:58 11:36 WBC 15.5 H (4.5-11.0) K/uL RBC 5.42 (4.30-5.90) M/uL Hgb 15.8 H (12.0-15.0) g/dL Hct 49.2 (40.0-54.0) % MCV 91 (80-98) fL MCH 29 (27-31) pg MCHC 32 (32-36) % Plt Count 188 (150-400) K/uL Neut % (Auto) 91 H (36-66) % Lymph % (Auto) 4 L (24-44) % [place] % (Auto) 5 (2-6) % Eos % (Auto) 0 L (2-4) % Baso % (Auto) 0 (0-1) % Sodium 140 (140-148) mmol/L Potassium 5.2 (3.6-5.2) mmol/L Chloride 103 (100-108) mmol/L Carbon Dioxide 26 (21-32) mmol/L Anion Gap 16.2 H (5.0-14.0) mmol/L BUN 36 H (7-18) mg/dL Creatinine 1.9 H (0.8-1.3) mg/dL Est Cr Clr Drug Dosing 24.73 mL/min Estimated GFR (MDRD) 34 L (>60) Glucose 190 H (74-106) mg/dL Lactic Acid (0.4-2.0) mmol/L Calcium 8.8 (8.5-10.1) mg/dL Total Bilirubin 2.2 H (0.2-1.0) mg/dL Direct Bilirubin 1.33 H (0.0-0.2) mg/dL Indirect Bilirubin 0.87 AST 457 H (15-37) U/L ALT 320 H (12-78) U/L Alkaline Phosphatase 139 H (46-116) U/L Creatine Kinase (39-308) U/L Troponin I (0.000-0.056) ng/mL Total Protein 7.0 (6.4-8.2) g/dL Albumin 3.0 L (3.4-5.0) g/dL Globulin 4.0 H (2.3-3.5) g/dL Albumin/Globulin Ratio 0.8 L (1.2-2.2) Lipase (73-393) U/L 08/25/19 08/25/19 Range/Units 11:37 11:37 WBC (4.5-11.0) K/uL RBC (4.30-5.90) M/uL Hgb (12.0-15.0) g/dL Hct (40.0-54.0) % MCV (80-98) fL MCH (27-31) pg MCHC (32-36) % Plt Count (150-400) K/uL Neut % (Auto) (36-66) % Lymph % (Auto) (24-44) % [place] % (Auto) (2-6) % Eos % (Auto) (2-4) % Baso % (Auto) (0-1) % Sodium (140-148) mmol/L Potassium (3.6-5.2) mmol/L Chloride (100-108) mmol/L Carbon Dioxide (21-32) mmol/L Anion Gap (5.0-14.0) mmol/L BUN (7-18) mg/dL Creatinine (0.8-1.3) mg/dL Est Cr Clr Drug Dosing mL/min Estimated GFR (MDRD) (>60) Glucose (74-106) mg/dL Lactic Acid 4.6 H (0.4-2.0) mmol/L Calcium (8.5-10.1) mg/dL Total Bilirubin (0.2-1.0) mg/dL Direct Bilirubin (0.0-0.2) mg/dL Indirect Bilirubin AST (15-37) U/L ALT (12-78) U/L Alkaline Phosphatase (46-116) U/L Creatine Kinase (39-308) U/L Troponin I (0.000-0.056) ng/mL Total Protein (6.4-8.2) g/dL Albumin (3.4-5.0) g/dL Globulin (2.3-3.5) g/dL Albumin/Globulin Ratio (1.2-2.2) Lipase 65 L (73-393) U/L Med Orders - Current: Current Medications Acetaminophen (Tylenol) 650 mg PO Q4H PRN PRN Reason: Pain (Mild 1-3)/fever Aspirin (Halfprin) 81 mg PO DAILY [facility] Last Admin: 08/25/19 08:58 Dose: 81 mg Benzonatate (Tessalon Perles) 100 mg PO TID PRN PRN Reason: Cough Carvedilol (Coreg) 12.5 mg PO BIDMEALS [facility] Last Admin: 08/25/19 08:57 Dose: 12.5 mg Dextrose (Glutose 15) 15 gm PO ONETIME PRN PRN Reason: Hypoglycemia Dextrose/Water (Dextrose 50% In Water) 50 ml IV ONETIME PRN PRN Reason: Hypoglycemia Docusate Sodium (Colace) 100 mg PO BID PRN PRN Reason: Constipation Finasteride (Proscar) 5 mg PO DAILY [facility] Last Admin: 08/25/19 08:58 Dose: 5 mg Furosemide (Lasix) 20 mg PO BIDDIURETIC [facility] Last Admin: 08/25/19 08:58 Dose: 20 mg Glimepiride (Amaryl) 1 mg PO WITHBREAKFAST [facility] Last Admin: 08/25/19 07:36 Dose: 1 mg Sodium Chloride (Normal Saline) 1,000 mls @ 100 mls/hr IV ASDIRECTED [facility] Last Admin: 08/25/19 10:57 Dose: 100 mls/hr Meropenem 1 gm/ Sodium (Chloride) 50 mls @ 100 mls/hr IV Q12H [facility] Insulin Human Lispro (Humalog) 0 unit SUBCUT QIDACANDBED [facility]; Protocol Isosorbide Mononitrate (Imdur) 30 mg PO DAILY@0730 [facility] Last Admin: 08/25/19 07:27 Dose: 30 mg Lactobacillus Rhamnosus (Culturelle) 1 cap PO BID [facility] Nitroglycerin (Nitrostat) 0.4 mg SL ASDIRECTED [facility] Ondansetron HCl (Zofran Odt) 4 mg PO Q6H PRN PRN Reason: Nausea able to take PO Ondansetron HCl (Zofran) 4 mg IV Q4H PRN PRN Reason: Nausea/Vomiting Pantoprazole Sodium (Protonix) 40 mg PO ACBREAKFAST [facility] Last Admin: 08/25/19 07:28 Dose: 40 mg Polyethylene Glycol (Miralax) 17 gm PO DAILY PRN PRN Reason: CONSTIPATION Sertraline HCl (Zoloft) 150 mg PO DAILY [facility] Last Admin: 08/25/19 09:00 Dose: Not Given - Exam Quality Assessment: DVT Prophylaxis General: Alert, Oriented, Cooperative, No Acute Distress Lungs: Clear to Auscultation, Normal Respiratory Effort Cardiovascular: Regular Rate, Regular Rhythm, Murmurs GI/Abdominal Exam: Soft, Non-Tender, No Organomegaly, No Distention Extremities: Non-Tender, No Pedal Edema Sepsis Event Note - Evaluation Sepsis Screening Result: Severe Sepsis Risk - Focused Exam Vital Signs: Vital Signs Temp Pulse Pulse Resp BP BP BP 08/25/19 12:16 96.6 F L 95 36 H 110/75 08/25/19 08:57 105 H 125/91 H 08/25/19 07:57 08/25/19 07:27 125/91 H 08/25/19 07:23 97.4 F 105 H 44 H 125/91 H 08/25/19 05:33 98.1 F 98 16 130/88 08/25/19 01:42 Pulse Ox 08/25/19 12:16 95 08/25/19 08:57 08/25/19 07:57 94 L 08/25/19 07:27 08/25/19 07:23 97 08/25/19 05:33 94 L 08/25/19 01:42 95 Date Exam was Performed: 08/25/19 Time Exam was Performed: 14:44 - Problem List Review Problem List Initiated/Reviewed/Updated: Yes - My Orders Last 24 Hours: My Active Orders 08/25/19 08:31 UA W/MICROSCOPIC [URIN] Stat 08/25/19 13:00 Lactobacillus Rhamnosus GG [Culturelle] 1 cap PO BID 08/25/19 13:07 Blood Glucose Check, Bedside [RC] QIDACANDBED Communication Order [RC] STAT Diabetes Education [RC] Click to Edit Notify Provider [RC] PRN Dextrose 50% in Water 50 ml IV ONETIME PRN Dextrose [Glutose 15] 15 gm PO ONETIME PRN 08/25/19 13:08 Patient Status [ADT] Routine 08/25/19 13:30 Meropenem [Merrem] 1 gm Sodium Chloride 0.9% [Normal Saline] 50 ml IV Q12H 08/25/19 16:30 GLUCOSE POC LAB TO COLLECT [POC] QIDACANDBED 08/25/19 17:00 Insulin Lispro [HumaLOG] See Protocol SUBCUT QIDACANDBED 08/25/19 21:00 GLUCOSE POC LAB TO COLLECT [POC] QIDACANDBED 08/26/19 05:00 CBC WITH AUTO DIFF [HEME] Timed COMPREHENSIVE METABOLIC PN,CMP [CHEM] Timed LACTIC ACID [CHEM] Timed MAGNESIUM [CHEM] Timed 08/26/19 07:30 GLUCOSE POC LAB TO COLLECT [POC] QIDACANDBED 08/26/19 11:30 GLUCOSE POC LAB TO COLLECT [POC] QIDACANDBED 08/26/19 16:30 GLUCOSE POC LAB TO COLLECT [POC] QIDACANDBED 08/26/19 21:00 GLUCOSE POC LAB TO COLLECT [POC] QIDACANDBED 08/27/19 07:30 GLUCOSE POC LAB TO COLLECT [POC] QIDACANDBED 08/27/19 11:30 GLUCOSE POC LAB TO COLLECT [POC] QIDACANDBED 08/27/19 16:30 GLUCOSE POC LAB TO COLLECT [POC] QIDACANDBED 08/27/19 21:00 GLUCOSE POC LAB TO COLLECT [POC] QIDACANDBED 08/28/19 07:30 GLUCOSE POC LAB TO COLLECT [POC] QIDACANDBED 08/28/19 11:30 GLUCOSE POC LAB TO COLLECT [POC] QIDACANDBED 08/28/19 16:30 GLUCOSE POC LAB TO COLLECT [POC] QIDACANDBED 08/28/19 21:00 GLUCOSE POC LAB TO COLLECT [POC] QIDACANDBED 08/29/19 07:30 GLUCOSE POC LAB TO COLLECT [POC] QIDACANDBED 08/29/19 11:30 GLUCOSE POC LAB TO COLLECT [POC] QIDACANDBED 08/29/19 16:30 GLUCOSE POC LAB TO COLLECT [POC] QIDACANDBED 08/29/19 21:00 GLUCOSE POC LAB TO COLLECT [POC] QIDACANDBED 08/30/19 07:30 GLUCOSE POC LAB TO COLLECT [POC] QIDACANDBED 08/30/19 11:30 GLUCOSE POC LAB TO COLLECT [POC] QIDACANDBED - Plan Plan:: ASSESSMENT AND PLAN Liver enzyme elevation-normal liver enzymes noted on hospitalization at the beginning of the month. No significant elevation in all enzymes with a bilirubin of 2.2 this morning. No significant symptoms of abdominal pain, nausea, or vomiting. Ultrasound unremarkable showing no evidence of ductal dilatation or gallbladder inflammation. White blood cell count is elevated and increased from modest elevation on admission. Assume probable underlying infection, cholecystitis. -Meropenem 1 g IV every 8 hours -Reassess liver enzymes in a.m. Weakness -IV fluids for hydration, Normal Saline 100 ml/hr Type 2 diabetes mellitus - patient denies any concerns. oral medications - no insulin. 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 Congestive heart failure-recent echocardiogram showing decreased left ventricular function with severe valvular disease -Continue outpatient medications MAINTENANCE ISSUES -DVT Prophylaxis SCD -GI prophylaxis- Protonix as above -Reza catheter not indicated -Nutrition Consistent Carb diet CODE STATUS DNR/DNI ADMISSION we will switch to inpatient status, given liver enzyme elevation and elevated white blood cell count DISPOSITION anticipate discharge to home after the hospital stay PRIMARY CARE PROVIDER Dr. Taylor Tipton. [facility] HOSPITALIST Dr. Navarro
[2019-08-25] MEDS: Lactobacillus Rhamnosus GG (Probiotic) Cap PO SCH ×2 (13:27→22:12)
[2019-08-25] MEDS ORDERED: Sodium Chloride 0.9% 1,000 ML IV SCH (16:15)
[2019-08-25] MEDS: Insulin Lispro 100 Unit/ML 3 ML KwikPen SUBCUT SCH ×2 (16:43→22:17)
[2019-08-26] MEDS: Insulin Lispro 100 Unit/ML 3 ML KwikPen SUBCUT SCH ×4 (07:45→20:07)
[2019-08-26] MEDS: Pantoprazole 40 MG Tab.CR PO SCH (07:47)
[2019-08-26] MEDS: Glimepiride 2 MG Tab PO SCH (07:48)
[2019-08-26] MEDS: Furosemide 20 MG Tab PO SCH ×2 (07:50→14:32)
[2019-08-26] MEDS: Carvedilol 12.5 MG Tab PO SCH ×2 (07:55→17:34)
[2019-08-26] MEDS: Isosorbide Mononitrate 30 MG Tab.ER PO SCH (07:56)
[2019-08-26] MEDS: Finasteride 5 MG Tab PO SCH (07:59)
[2019-08-26] MEDS: Sertraline 50 MG Tab PO SCH (08:00)
[2019-08-26] MEDS: Aspirin 81 MG Tab.EC PO SCH (08:00)
[2019-08-26] MEDS: Lactobacillus Rhamnosus GG (Probiotic) Cap PO SCH ×2 (08:00→20:09)
[2019-08-26] MEDS: Benzonatate 100 MG Cap PO PRN ×2 (08:06→19:43)
[2019-08-26] MEDS ORDERED: Isosorbide Mononitrate 30 MG Tab.ER PO SCH (09:00)
--- NOTE | 2019-08-26 13:09 | PCM.PN ---
- General Info Date of Service: 08/26/19 Subjective Update: Mr. Tolbert has been stable over the last 24 hours, energy level seems to be improving as well as appetite. Vital signs have been stable and he has remained afebrile. White blood cell count has normalized and he denies abdominal pain, nausea, or vomiting. Functional Status: Reports: Tolerating Diet, Ambulating, Urinating - Review of Systems General: Reports: Weakness. Denies: Fever, Chills Pulmonary: Reports: No Symptoms Cardiovascular: Reports: No Symptoms Gastrointestinal: Reports: No Symptoms - Patient Data Vitals - Most Recent: Last Vital Signs Temp 96 F L 08/26/19 10:51 Pulse 62 08/26/19 10:51 Resp 16 08/26/19 10:51 BP 103/80 08/26/19 10:51 Pulse Ox 94 L 08/26/19 10:51 Weight - Most Recent: 174 lb 4.8 oz I&O - Last 24 Hours: Intake & Output 08/25/19 08/26/19 08/26/19 22:59 06:59 14:59 Intake Total 509 595 240 Output Total 250 300 300 Balance 259 295 -60 Lab Results Last 24 Hours: Laboratory Results - last 24 hr 08/25/19 08/26/19 08/26/19 Range/Units 17:48 05:07 05:07 WBC 8.8 (4.5-11.0) K/uL RBC 4.85 (4.30-5.90) M/uL Hgb 13.9 (12.0-15.0) g/dL Hct 44.1 (40.0-54.0) % MCV 91 (80-98) fL MCH 29 (27-31) pg MCHC 32 (32-36) % Plt Count 185 (150-400) K/uL Neut % (Auto) 77 H (36-66) % Lymph % (Auto) 11 L (24-44) % [place] % (Auto) 6 (2-6) % Eos % (Auto) 6 H (2-4) % Baso % (Auto) 0 (0-1) % Sodium 139 L (140-148) mmol/L Potassium 3.7 (3.6-5.2) mmol/L Chloride 104 (100-108) mmol/L Carbon Dioxide 24 (21-32) mmol/L Anion Gap 14.7 H (5.0-14.0) mmol/L BUN 37 H (7-18) mg/dL Creatinine 1.8 H (0.8-1.3) mg/dL Est Cr Clr Drug Dosing 26.10 mL/min Estimated GFR (MDRD) 36 L (>60) Glucose 125 H (74-106) mg/dL Lactic Acid (0.4-2.0) mmol/L Calcium 7.9 L (8.5-10.1) mg/dL Magnesium 1.8 (1.8-2.4) mg/dL Total Bilirubin 1.6 H (0.2-1.0) mg/dL AST 339 H (15-37) U/L ALT 284 H (12-78) U/L Alkaline Phosphatase 119 H (46-116) U/L Total Protein 6.2 L (6.4-8.2) g/dL Albumin 2.6 L (3.4-5.0) g/dL Globulin 3.6 H (2.3-3.5) g/dL Albumin/Globulin Ratio 0.7 L (1.2-2.2) Urine Color Yellow (YELLOW) Urine Appearance Clear (CLEAR) Urine pH 5.5 (5.0-8.0) Ur Specific [place] 1.020 (1.008-1.030) Urine Protein Negative (NEGATIVE) mg/dL Urine Glucose (UA) Negative (NEGATIVE) mg/dL Urine Ketones Negative (NEGATIVE) mg/dL Urine Occult Blood Trace-lysed H (NEGATIVE) Urine Nitrite Negative (NEGATIVE) Urine Bilirubin Small H (NEGATIVE) Urine Urobilinogen 2.0 H (0.2-1.0) EU/dL Ur Leukocyte Esterase Negative (NEGATIVE) Urine RBC 0-5 (0-5) Urine WBC Not seen (0-5) Ur Epithelial Cells Rare Amorphous Sediment Not seen Urine Bacteria Moderate Urine Mucus Not seen 08/26/19 Range/Units 05:07 WBC (4.5-11.0) K/uL RBC (4.30-5.90) M/uL Hgb (12.0-15.0) g/dL Hct (40.0-54.0) % MCV (80-98) fL MCH (27-31) pg MCHC (32-36) % Plt Count (150-400) K/uL Neut % (Auto) (36-66) % Lymph % (Auto) (24-44) % [place] % (Auto) (2-6) % Eos % (Auto) (2-4) % Baso % (Auto) (0-1) % Sodium (140-148) mmol/L Potassium (3.6-5.2) mmol/L Chloride (100-108) mmol/L Carbon Dioxide (21-32) mmol/L Anion Gap (5.0-14.0) mmol/L BUN (7-18) mg/dL Creatinine (0.8-1.3) mg/dL Est Cr Clr Drug Dosing mL/min Estimated GFR (MDRD) (>60) Glucose (74-106) mg/dL Lactic Acid 1.7 (0.4-2.0) mmol/L Calcium (8.5-10.1) mg/dL Magnesium (1.8-2.4) mg/dL Total Bilirubin (0.2-1.0) mg/dL AST (15-37) U/L ALT (12-78) U/L Alkaline Phosphatase (46-116) U/L Total Protein (6.4-8.2) g/dL Albumin (3.4-5.0) g/dL Globulin (2.3-3.5) g/dL Albumin/Globulin Ratio (1.2-2.2) Urine Color (YELLOW) Urine Appearance (CLEAR) Urine pH (5.0-8.0) Ur Specific [place] (1.008-1.030) Urine Protein (NEGATIVE) mg/dL Urine Glucose (UA) (NEGATIVE) mg/dL Urine Ketones (NEGATIVE) mg/dL Urine Occult Blood (NEGATIVE) Urine Nitrite (NEGATIVE) Urine Bilirubin (NEGATIVE) Urine Urobilinogen (0.2-1.0) EU/dL Ur Leukocyte Esterase (NEGATIVE) Urine RBC (0-5) Urine WBC (0-5) Ur Epithelial Cells Amorphous Sediment Urine Bacteria Urine Mucus Med Orders - Current: Current Medications Acetaminophen (Tylenol) 650 mg PO Q4H PRN PRN Reason: Pain (Mild 1-3)/fever Aspirin (Halfprin) 81 mg PO DAILY [facility] Last Admin: 08/26/19 08:00 Dose: 81 mg Benzonatate (Tessalon Perles) 100 mg PO TID PRN PRN Reason: Cough Last Admin: 08/26/19 08:06 Dose: 100 mg Carvedilol (Coreg) 12.5 mg PO BIDMEALS [facility] Last Admin: 08/26/19 07:55 Dose: 12.5 mg Dextrose (Glutose 15) 15 gm PO ASDIRECTED PRN PRN Reason: Hypoglycemia Dextrose/Water (Dextrose 50% In Water) 50 ml IV ASDIRECTED PRN PRN Reason: Hypoglycemia Docusate Sodium (Colace) 100 mg PO BID PRN PRN Reason: Constipation Finasteride (Proscar) 5 mg PO DAILY [facility] Last Admin: 08/26/19 07:59 Dose: 5 mg Furosemide (Lasix) 20 mg PO BIDDIURETIC [facility] Last Admin: 08/26/19 07:50 Dose: 20 mg Glimepiride (Amaryl) 1 mg PO WITHBREAKFAST [facility] Last Admin: 08/26/19 07:48 Dose: 1 mg Meropenem 1 gm/ Sodium (Chloride) 50 mls @ 100 mls/hr IV Q12H [facility] Last Admin: 08/26/19 02:13 Dose: 100 mls/hr Insulin Human Lispro (Humalog) 0 unit SUBCUT QIDACANDBED [facility]; Protocol Last Admin: 08/26/19 11:37 Dose: Not Given Isosorbide Mononitrate (Imdur) 30 mg PO DAILY@0730 [facility] Last Admin: 08/26/19 07:56 Dose: 30 mg Lactobacillus Rhamnosus (Culturelle) 1 cap PO BID [facility] Last Admin: 08/26/19 08:00 Dose: 1 cap Nitroglycerin (Nitrostat) 0.4 mg SL ASDIRECTED [facility] Ondansetron HCl (Zofran Odt) 4 mg PO Q6H PRN PRN Reason: Nausea able to take PO Ondansetron HCl (Zofran) 4 mg IV Q4H PRN PRN Reason: Nausea/Vomiting Pantoprazole Sodium (Protonix) 40 mg PO ACBREAKFAST [facility] Last Admin: 08/26/19 07:47 Dose: 40 mg Polyethylene Glycol (Miralax) 17 gm PO DAILY PRN PRN Reason: CONSTIPATION Sertraline HCl (Zoloft) 150 mg PO DAILY [facility] Last Admin: 08/26/19 08:00 Dose: 150 mg Discontinued Medications Sodium Chloride (Normal Saline) 1,000 mls @ 100 mls/hr IV ASDIRECTED [facility] Last Admin: 08/25/19 10:57 Dose: 100 mls/hr Sodium Chloride (Normal Saline) 1,000 mls @ 50 mls/hr IV ASDIRECTED [facility] Last Admin: 08/26/19 03:12 Dose: 50 mls/hr - Exam General: Alert, Oriented, Cooperative, No Acute Distress Lungs: Clear to Auscultation, Normal Respiratory Effort Cardiovascular: Regular Rate, Regular Rhythm, No Murmurs GI/Abdominal Exam: Soft, Non-Tender, No Organomegaly, No Distention Sepsis Event Note - Evaluation Sepsis Screening Result: No Definite Risk - Focused Exam Vital Signs: Vital Signs Temp Pulse Pulse Resp BP BP Pulse Ox 08/26/19 10:51 96 F L 62 16 103/80 94 L 08/26/19 07:56 99/65 08/26/19 07:55 77 99/65 08/26/19 07:22 96 F L 82 16 97/66 97 08/26/19 02:17 94.1 F L 72 18 109/82 96 Date Exam was Performed: 08/26/19 Time Exam was Performed: 13:06 - Problem List Review Problem List Initiated/Reviewed/Updated: Yes - My Orders Last 24 Hours: My Active Orders 08/25/19 13:00 Lactobacillus Rhamnosus GG [Culturelle] 1 cap PO BID 08/25/19 13:07 Blood Glucose Check, Bedside [RC] QIDACANDBED Communication Order [RC] STAT Diabetes Education [RC] Click to Edit Notify Provider [RC] PRN Dextrose 50% in Water 50 ml IV ASDIRECTED PRN Dextrose [Glutose 15] 15 gm PO ASDIRECTED PRN 08/25/19 13:08 Patient Status [ADT] Routine 08/25/19 13:30 Meropenem [Merrem] 1 gm Sodium Chloride 0.9% [Normal Saline] 50 ml IV Q12H 08/25/19 17:00 Insulin Lispro [HumaLOG] See Protocol SUBCUT QIDACANDBED 08/26/19 11:43 Convert IV to Saline Lock [OM.PC] Routine 08/26/19 16:30 GLUCOSE POC LAB TO COLLECT [POC] QIDACANDBED 08/26/19 21:00 GLUCOSE POC LAB TO COLLECT [POC] QIDACANDBED 08/27/19 05:00 COMPREHENSIVE METABOLIC PN,CMP [CHEM] Timed 08/27/19 07:30 GLUCOSE POC LAB TO COLLECT [POC] QIDACANDBED 08/27/19 11:30 GLUCOSE POC LAB TO COLLECT [POC] QIDACANDBED 08/27/19 16:30 GLUCOSE POC LAB TO COLLECT [POC] QIDACANDBED 08/27/19 21:00 GLUCOSE POC LAB TO COLLECT [POC] QIDACANDBED 08/28/19 07:30 GLUCOSE POC LAB TO COLLECT [POC] QIDACANDBED 08/28/19 11:30 GLUCOSE POC LAB TO COLLECT [POC] QIDACANDBED 08/28/19 16:30 GLUCOSE POC LAB TO COLLECT [POC] QIDACANDBED 08/28/19 21:00 GLUCOSE POC LAB TO COLLECT [POC] QIDACANDBED 08/29/19 07:30 GLUCOSE POC LAB TO COLLECT [POC] QIDACANDBED 08/29/19 11:30 GLUCOSE POC LAB TO COLLECT [POC] QIDACANDBED 08/29/19 16:30 GLUCOSE POC LAB TO COLLECT [POC] QIDACANDBED 08/29/19 21:00 GLUCOSE POC LAB TO COLLECT [POC] QIDACANDBED 08/30/19 07:30 GLUCOSE POC LAB TO COLLECT [POC] QIDACANDBED 08/30/19 11:30 GLUCOSE POC LAB TO COLLECT [POC] QIDACANDBED - Plan Plan:: ASSESSMENT AND PLAN Liver enzyme elevation-normal liver enzymes noted on hospitalization at the beginning of the month. Improved from admission with decreasing liver enzymes and normalization of white blood cell count. Vital signs have been stable and he has been afebrile. Denies any symptoms of abdominal pain, nausea, or vomiting. -Meropenem 1 g IV every 8 hours -Reassess liver enzymes in a.m. 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 Remains asymptomatic -continue Outpatient medication -cardiac monitoring. Congestive heart failure-recent echocardiogram showing decreased left ventricular function with severe valvular disease. Compensated at the present time with no significant symptoms -Continue outpatient medications MAINTENANCE ISSUES -DVT Prophylaxis SCD -GI prophylaxis- Protonix as above -Reza catheter not indicated -Nutrition Consistent Carb diet CODE STATUS DNR/DNI ADMISSION we will switch to inpatient status, given liver enzyme elevation and elevated white blood cell count DISPOSITION anticipate discharge to home after the hospital stay PRIMARY CARE PROVIDER Dr. Taylor Tipton. [facility] HOSPITALIST Dr. Navarro
[2019-08-27] MEDS: Benzonatate 100 MG Cap PO PRN ×3 (00:11→21:06)
[2019-08-27] MEDS: Insulin Lispro 100 Unit/ML 3 ML KwikPen SUBCUT SCH ×4 (07:36→21:04)
[2019-08-27] MEDS: Isosorbide Mononitrate 30 MG Tab.ER PO SCH (07:56)
[2019-08-27] MEDS: Pantoprazole 40 MG Tab.CR PO SCH (07:57)
[2019-08-27] MEDS: Glimepiride 2 MG Tab PO SCH (07:57)
[2019-08-27] MEDS: Furosemide 20 MG Tab PO SCH ×2 (07:58→13:41)
[2019-08-27] MEDS: Carvedilol 12.5 MG Tab PO SCH ×2 (07:58→18:04)
[2019-08-27] MEDS: Lactobacillus Rhamnosus GG (Probiotic) Cap PO SCH ×2 (08:00→21:02)
[2019-08-27] MEDS: Aspirin 81 MG Tab.EC PO SCH (08:01)
[2019-08-27] MEDS: Finasteride 5 MG Tab PO SCH (08:01)
[2019-08-27] MEDS: Sertraline 50 MG Tab PO SCH (08:01)
--- NOTE | 2019-08-27 10:30 | PCM.PN ---
- General Info Date of Service: 08/27/19 Subjective Update: Mr. Tolbert has been stable since yesterday and is slowly regaining strength. Appetite seems to be improved, vital signs have been stable, and he has been afebrile. Continues to refuse mcc placement for restorative physical therapy and Occupational Therapy. He will consent to home health care services with PT and OT. Functional Status: Reports: Tolerating Diet, Ambulating, Urinating - Review of Systems General: Reports: Weakness. Denies: Fever, Chills Pulmonary: Reports: No Symptoms Cardiovascular: Reports: No Symptoms Gastrointestinal: Reports: No Symptoms - Patient Data Vitals - Most Recent: Last Vital Signs Temp 97 F 08/27/19 07:24 Pulse 89 08/27/19 07:58 Resp 20 08/27/19 07:24 BP 117/66 08/27/19 07:58 Pulse Ox 96 08/27/19 07:44 Weight - Most Recent: 173 lb 9.6 oz I&O - Last 24 Hours: Intake & Output 08/26/19 08/27/19 08/27/19 22:59 06:59 14:59 Intake Total 370 1043 Output Total 200 700 Balance 170 343 Lab Results Last 24 Hours: Laboratory Results - last 24 hr 08/27/19 Range/Units 05:45 Sodium 141 (140-148) mmol/L Potassium 4.0 (3.6-5.2) mmol/L Chloride 106 (100-108) mmol/L Carbon Dioxide 24 (21-32) mmol/L Anion Gap 11.5 (5.0-14.0) mmol/L BUN 35 H (7-18) mg/dL Creatinine 1.7 H (0.8-1.3) mg/dL Est Cr Clr Drug Dosing 27.63 mL/min Estimated GFR (MDRD) 38 L (>60) Glucose 121 H (74-106) mg/dL Calcium 8.5 (8.5-10.1) mg/dL Total Bilirubin 1.5 H (0.2-1.0) mg/dL AST 329 H (15-37) U/L ALT 332 H (12-78) U/L Alkaline Phosphatase 135 H (46-116) U/L Total Protein 7.1 (6.4-8.2) g/dL Albumin 3.0 L (3.4-5.0) g/dL Globulin 4.1 H (2.3-3.5) g/dL Albumin/Globulin Ratio 0.7 L (1.2-2.2) Med Orders - Current: Current Medications Acetaminophen (Tylenol) 650 mg PO Q4H PRN PRN Reason: Pain (Mild 1-3)/fever Aspirin (Halfprin) 81 mg PO DAILY [facility] Last Admin: 08/27/19 08:01 Dose: 81 mg Benzonatate (Tessalon Perles) 100 mg PO TID PRN PRN Reason: Cough Last Admin: 08/27/19 07:56 Dose: 100 mg Carvedilol (Coreg) 12.5 mg PO BIDMEALS [facility] Last Admin: 08/27/19 07:58 Dose: 12.5 mg Dextrose (Glutose 15) 15 gm PO ASDIRECTED PRN PRN Reason: Hypoglycemia Dextrose/Water (Dextrose 50% In Water) 50 ml IV ASDIRECTED PRN PRN Reason: Hypoglycemia Docusate Sodium (Colace) 100 mg PO BID PRN PRN Reason: Constipation Finasteride (Proscar) 5 mg PO DAILY [facility] Last Admin: 08/27/19 08:01 Dose: 5 mg Fluticasone Propionate (Flonase) 0 gm NASBOTH DAILY [facility] Furosemide (Lasix) 20 mg PO BIDDIURETIC [facility] Last Admin: 08/27/19 07:58 Dose: 20 mg Glimepiride (Amaryl) 1 mg PO WITHBREAKFAST [facility] Last Admin: 08/27/19 07:57 Dose: 1 mg Meropenem 1 gm/ Sodium (Chloride) 50 mls @ 100 mls/hr IV Q12H [facility] Stop: 08/28/19 08:00 Last Admin: 08/27/19 00:37 Dose: 100 mls/hr Insulin Human Lispro (Humalog) 0 unit SUBCUT QIDACANDBED [facility]; Protocol Last Admin: 08/27/19 07:36 Dose: Not Given Isosorbide Mononitrate (Imdur) 30 mg PO DAILY@0730 [facility] Last Admin: 08/27/19 07:56 Dose: 30 mg Lactobacillus Rhamnosus (Culturelle) 1 cap PO BID [facility] Last Admin: 08/27/19 08:00 Dose: 1 cap Nitroglycerin (Nitrostat) 0.4 mg SL ASDIRECTED [facility] Ondansetron HCl (Zofran Odt) 4 mg PO Q6H PRN PRN Reason: Nausea able to take PO Ondansetron HCl (Zofran) 4 mg IV Q4H PRN PRN Reason: Nausea/Vomiting Pantoprazole Sodium (Protonix) 40 mg PO ACBREAKFAST [facility] Last Admin: 08/27/19 07:57 Dose: 40 mg Polyethylene Glycol (Miralax) 17 gm PO DAILY PRN PRN Reason: CONSTIPATION Sertraline HCl (Zoloft) 150 mg PO DAILY [facility] Last Admin: 08/27/19 08:01 Dose: 150 mg Discontinued Medications Sodium Chloride (Normal Saline) 1,000 mls @ 100 mls/hr IV ASDIRECTED [facility] Last Admin: 08/25/19 10:57 Dose: 100 mls/hr Sodium Chloride (Normal Saline) 1,000 mls @ 50 mls/hr IV ASDIRECTED [facility] Last Admin: 08/26/19 03:12 Dose: 50 mls/hr - Exam General: Alert, Oriented, Cooperative, Mild Distress Lungs: Clear to Auscultation, Normal Respiratory Effort Cardiovascular: Regular Rate, Regular Rhythm, No Murmurs GI/Abdominal Exam: Soft, Non-Tender, No Organomegaly, No Distention Extremities: Non-Tender, No Pedal Edema Sepsis Event Note - Evaluation Sepsis Screening Result: No Definite Risk - Focused Exam Vital Signs: Vital Signs Temp Pulse Pulse Resp BP BP Pulse Ox 08/27/19 07:58 89 117/66 08/27/19 07:56 117/66 08/27/19 07:44 96 08/27/19 07:24 97 F 89 20 117/66 97 08/27/19 04:31 98.2 F 87 18 104/90 96 08/27/19 01:14 98 08/27/19 00:19 97 Date Exam was Performed: 08/27/19 Time Exam was Performed: 10:28 - Problem List Review Problem List Initiated/Reviewed/Updated: Yes - My Orders Last 24 Hours: My Active Orders 08/26/19 11:43 Convert IV to Saline Lock [OM.PC] Routine 08/27/19 10:30 Fluticasone Propionate [Flonase] See Dose Instructions NASBOTH DAILY 08/27/19 11:30 GLUCOSE POC LAB TO COLLECT [POC] QIDACANDBED 08/27/19 16:30 GLUCOSE POC LAB TO COLLECT [POC] QIDACANDBED 08/27/19 21:00 GLUCOSE POC LAB TO COLLECT [POC] QIDACANDBED 08/28/19 05:00 COMPREHENSIVE METABOLIC PN,CMP [CHEM] Timed 08/28/19 07:30 GLUCOSE POC LAB TO COLLECT [POC] QIDACANDBED 08/28/19 11:30 GLUCOSE POC LAB TO COLLECT [POC] QIDACANDBED 08/28/19 16:30 GLUCOSE POC LAB TO COLLECT [POC] QIDACANDBED 08/28/19 21:00 GLUCOSE POC LAB TO COLLECT [POC] QIDACANDBED 08/29/19 07:30 GLUCOSE POC LAB TO COLLECT [POC] QIDACANDBED 08/29/19 11:30 GLUCOSE POC LAB TO COLLECT [POC] QIDACANDBED 08/29/19 16:30 GLUCOSE POC LAB TO COLLECT [POC] QIDACANDBED 08/29/19 21:00 GLUCOSE POC LAB TO COLLECT [POC] QIDACANDBED 08/30/19 07:30 GLUCOSE POC LAB TO COLLECT [POC] QIDACANDBED 08/30/19 11:30 GLUCOSE POC LAB TO COLLECT [POC] QIDACANDBED - Plan Plan:: ASSESSMENT AND PLAN Liver enzyme elevation-normal liver enzymes noted on hospitalization at the beginning of the month. Improved from admission with decreasing liver enzymes and normalization of white blood cell count. Vital signs have been stable and he has been afebrile. Denies any symptoms of abdominal pain, nausea, or vomiting. -Meropenem 1 g IV every 8 hours -Reassess liver enzymes in a.m. 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 Remains asymptomatic -continue Outpatient medication -cardiac monitoring. Congestive heart failure-recent echocardiogram showing decreased left ventricular function with severe valvular disease. Compensated at the present time with no significant symptoms -Continue outpatient medications MAINTENANCE ISSUES -DVT Prophylaxis SCD -GI prophylaxis- Protonix as above -Reza catheter not indicated -Nutrition Consistent Carb diet CODE STATUS DNR/DNI ADMISSION we will switch to inpatient status, given liver enzyme elevation and elevated white blood cell count DISPOSITION anticipate discharge to home tomorrow with home care services PRIMARY CARE PROVIDER Dr. [facility]. [facility]
[2019-08-27] MEDS: Fluticasone Propionate Nasal Spray 16 GM Bottle NASBOTH SCH (12:32)
[2019-08-28] MEDS: Insulin Lispro 100 Unit/ML 3 ML KwikPen SUBCUT SCH (07:28)
[2019-08-28] MEDS: Isosorbide Mononitrate 30 MG Tab.ER PO SCH (08:13)
[2019-08-28] MEDS: Pantoprazole 40 MG Tab.CR PO SCH (08:18)
[2019-08-28] MEDS: Glimepiride 2 MG Tab PO SCH (08:18)
[2019-08-28] MEDS: Carvedilol 12.5 MG Tab PO SCH (08:19)
[2019-08-28] MEDS: Furosemide 20 MG Tab PO SCH (08:20)
[2019-08-28] MEDS: Fluticasone Propionate Nasal Spray 16 GM Bottle NASBOTH SCH (08:21)
[2019-08-28] MEDS: Lactobacillus Rhamnosus GG (Probiotic) Cap PO SCH (08:21)
[2019-08-28] MEDS: Aspirin 81 MG Tab.EC PO SCH (08:22)
[2019-08-28] MEDS: Sertraline 50 MG Tab PO SCH (08:22)
[2019-08-28] MEDS: Finasteride 5 MG Tab PO SCH (08:22)
[2019-08-28] MEDS ORDERED: Ciprofloxacin 500 MG Tab PO SCH (09:00)
--- NOTE | 2019-08-28 10:19 | PCM.DCSUM1 ---
Discharge Summary - Hospital Course Brief History: Mr. Tolbert is an 84-year-old gentleman who was admitted through the emergency department with weakness and elevated liver enzymes. - Discharge Data Discharge Date: 08/28/19 Discharge Disposition: Home, Self-Care 01 Condition: Fair - Referral to Home Health Date of Face to Face Encounter: 08/28/19 Reason for Homebound Status: Generalized weakness Primary Care Physician: PCP None Skilled Need: Requires restorative physical therapy and occupational therapy for generalized weakness. - Patient Summary/Data Consults: Consultations 08/25/19 01:02 OT Evaluation and Treatment [CONS] Routine Please Evaluate and Treat. OT Reason for Consult: Discharge Planning This query below is only for informational purposes and is not editable. Admission Diagnosis/Problem: Weakness PT Evaluation and Treatment [CONS] Routine Please Evaluate and Treat. PT Reason for Consult: Strengthening This query below is only for informational purposes and is not editable. Admission Diagnosis/Problem: Weakness Hospital Course: 84-year-old male brought in by ambulance because of profound weakness. He was hospitalized within the last month for congestive heart failure, an echocardiogram showed trace left ventricular function with estimated ejection fraction of 35 to 40%. There is also severe TR and MR, moderate MR, mild AI and , decreased right ventricular function. He was taken to [place] today by his neighbors for a [place], when they brought him home he was weak. They helped him into his house and lay down on the floor and he would not get up. He spent 2 hours on the floor before they called the ambulance. When they arrived he was short of breath, confused, and extremely weak. He was not complaining of any pain. He did not want to be transferred but they did not feel comfortable leaving him because he was confused and obviously hypoxic. He responded well to nasal cannula oxygen in route, initially his O2 saturations were 88%. On admission he was given IV fluids for hydration. Labs in the emergency department showed significant elevation in liver enzymes with a bilirubin of 2.2. On review of previous records his liver functions had been within normal range earlier in the month. His white blood cell count was elevated and he was felt to have possible cholecystitis or intra-abdominal infection. He was started on IV meropenem and ultrasound of the abdomen was obtained. Ultrasound showed normal-appearing gallbladder with no evidence of ductal dilatation. Over the next few days there was improvement in his liver functions but they never returned to normal range bilirubin on the day of discharge was down to 1.8. White blood cell count normalized and he remained hemodynamically stable and afebrile. He was seen daily by physical therapy and during the course of his hospital stay regain strength and by the time of discharge was transferring and ambulating independently. He will be continued on another 4 days of antibiotic therapy with ciprofloxacin. Activity will be as tolerated and he will resume his usual diet. Home care services with home physical therapy and occupational therapy will be arranged for him after discharge. Follow-up appointment will be scheduled with his primary care provider within 1 week. Chemistry profile will be obtained at the time of follow-up appointment to reassess liver enzymes. - Patient Instructions Diet: Usual Diet as Tolerated Activity: As Tolerated Other/Special Instructions: Please arrange for home care services after discharge including home physical therapy and Occupational Therapy. Please schedule follow-up appointment with Dr. Tipton within 1 week. Chemistry profile should be obtained at the time of follow-up appointment for reassessment of liver enzymes. - Discharge Plan *PRESCRIPTION DRUG MONITORING PROGRAM REVIEWED*: Not Applicable *COPY OF PRESCRIPTION DRUG MONITORING REPORT IN PATIENT LUIS: Not Applicable Prescriptions/Med Rec: Ciprofloxacin [Ciprofloxacin HCl] 500 mg PO BID #8 tablet Lactobacillus Rhamnosus GG [Culturelle] 1 cap PO BID #60 cap Home Medications: Home Meds Aspirin 81 mg PO DAILY 05/13/19 [History] Cyanocobalamin (Vitamin B-12) [Vitamin B-12] 500 mcg PO DAILY 05/13/19 [History] Finasteride 5 mg PO DAILY 05/13/19 [History] Glimepiride [Amaryl] 1 mg PO WITHBREAKFAST 05/13/19 [History] Multivitamin [Multivitamins] 1 each PO DAILY 05/13/19 [History] Nitroglycerin [Nitrostat] 0.4 mg SL ASDIRECTED 05/13/19 [History] Omeprazole 40 mg PO ACBREAKFAST 05/13/19 [History] Sertraline [Zoloft] 150 mg PO DAILY 05/13/19 [History] carvediloL [Coreg] 12.5 mg PO BID 05/13/19 [History] Hydrocortisone [Hydrocortisone 2.5% Crm] 30 gm TOP BID #1 tube 05/31/19 [Rx] Fluticasone Propionate [Flonase Allergy Relief] 2 spray BRAEDEN DAILY 08/10/19 [ History] Furosemide 20 mg PO BID 08/10/19 [History] Olopatadine [Patanol 0.1% Ophth Soln] 1 drop EYEBOTH DAILY 08/10/19 [History] polyethylene glycoL 3350 [Miralax] 8.5 - 17 g PO DAILY PRN 08/10/19 [History] Benzonatate 100 mg PO TID PRN 08/24/19 [History] Isosorbide Mononitrate [Imdur] 30 mg PO DAILY 08/25/19 [History] Ciprofloxacin [Ciprofloxacin HCl] 500 mg PO BID #8 tablet 08/28/19 [Rx] Lactobacillus Rhamnosus GG [Culturelle] 1 cap PO BID #60 cap 08/28/19 [Rx] Referrals: Taylor Tipton MD [Ordering Only Provider] - - Discharge Summary/Plan Comment DC Time >30 min.: No - Patient Data Vitals - Most Recent: Last Vital Signs Temp 208.2 F H 08/28/19 07:00 Pulse 79 08/28/19 08:19 Resp 20 08/28/19 07:00 BP 119/82 08/28/19 08:19 Pulse Ox 97 08/28/19 07:00 Weight - Most Recent: 174 lb 6.4 oz I&O - Last 24 hours: Intake & Output 08/27/19 08/28/19 08/28/19 22:59 06:59 14:59 Intake Total 260 300 Output Total 100 Balance 260 300 -100 Lab Results - Last 24 hrs: Laboratory Results - last 24 hr 08/28/19 Range/Units 05:35 Sodium 142 (140-148) mmol/L Potassium 4.4 (3.6-5.2) mmol/L Chloride 105 (100-108) mmol/L Carbon Dioxide 26 (21-32) mmol/L Anion Gap 11.3 (5.0-14.0) mmol/L BUN 38 H (7-18) mg/dL Creatinine 1.8 H (0.8-1.3) mg/dL Est Cr Clr Drug Dosing 26.10 mL/min Estimated GFR (MDRD) 36 L (>60) Glucose 110 H (74-106) mg/dL Calcium 8.7 (8.5-10.1) mg/dL Total Bilirubin 1.8 H (0.2-1.0) mg/dL AST 307 H (15-37) U/L ALT 331 H (12-78) U/L Alkaline Phosphatase 124 H (46-116) U/L Total Protein 6.6 (6.4-8.2) g/dL Albumin 2.8 L (3.4-5.0) g/dL Globulin 3.8 H (2.3-3.5) g/dL Albumin/Globulin Ratio 0.7 L (1.2-2.2) Med Orders - Current: Current Medications Acetaminophen (Tylenol) 650 mg PO Q4H PRN PRN Reason: Pain (Mild 1-3)/fever Aspirin (Halfprin) 81 mg PO DAILY [facility] Last Admin: 08/28/19 08:22 Dose: 81 mg Benzonatate (Tessalon Perles) 100 mg PO TID PRN PRN Reason: Cough Last Admin: 08/27/19 21:06 Dose: 100 mg Carvedilol (Coreg) 12.5 mg PO BIDMEALS [facility] Last Admin: 08/28/19 08:19 Dose: 12.5 mg Ciprofloxacin (Ciprofloxacin Hcl) 500 mg PO BID [facility] Last Admin: 08/28/19 08:20 Dose: 500 mg Dextrose (Glutose 15) 15 gm PO ASDIRECTED PRN PRN Reason: Hypoglycemia Dextrose/Water (Dextrose 50% In Water) 50 ml IV ASDIRECTED PRN PRN Reason: Hypoglycemia Docusate Sodium (Colace) 100 mg PO BID PRN PRN Reason: Constipation Finasteride (Proscar) 5 mg PO DAILY [facility] Last Admin: 08/28/19 08:22 Dose: 5 mg Fluticasone Propionate (Flonase) 0 gm NASBOTH DAILY [facility] Last Admin: 08/28/19 08:21 Dose: 2 spray Furosemide (Lasix) 20 mg PO BIDDIURETIC [facility] Last Admin: 08/28/19 08:20 Dose: 20 mg Glimepiride (Amaryl) 1 mg PO WITHBREAKFAST [facility] Last Admin: 08/28/19 08:18 Dose: 1 mg Insulin Human Lispro (Humalog) 0 unit SUBCUT QIDACANDBED [facility]; Protocol Last Admin: 08/28/19 07:28 Dose: Not Given Isosorbide Mononitrate (Imdur) 30 mg PO DAILY@0730 [facility] Last Admin: 08/28/19 08:13 Dose: 30 mg Lactobacillus Rhamnosus (Culturelle) 1 cap PO BID [facility] Last Admin: 08/28/19 08:21 Dose: 1 cap Nitroglycerin (Nitrostat) 0.4 mg SL ASDIRECTED [facility] Ondansetron HCl (Zofran Odt) 4 mg PO Q6H PRN PRN Reason: Nausea able to take PO Ondansetron HCl (Zofran) 4 mg IV Q4H PRN PRN Reason: Nausea/Vomiting Pantoprazole Sodium (Protonix) 40 mg PO ACBREAKFAST [facility] Last Admin: 08/28/19 08:18 Dose: 40 mg Polyethylene Glycol (Miralax) 17 gm PO DAILY PRN PRN Reason: CONSTIPATION Sertraline HCl (Zoloft) 150 mg PO DAILY [facility] Last Admin: 08/28/19 08:22 Dose: 150 mg Discontinued Medications Sodium Chloride (Normal Saline) 1,000 mls @ 100 mls/hr IV ASDIRECTED [facility] Last Admin: 08/25/19 10:57 Dose: 100 mls/hr Meropenem 1 gm/ Sodium (Chloride) 50 mls @ 100 mls/hr IV Q12H [facility] Stop: 08/28/19 08:00 Last Admin: 08/28/19 07:27 Dose: Not Given Sodium Chloride (Normal Saline) 1,000 mls @ 50 mls/hr IV ASDIRECTED [facility] Last Admin: 08/26/19 03:12 Dose: 50 mls/hr - Exam General: Reports: Alert, Oriented, Cooperative, No Acute Distress Lungs: Reports: Clear to Auscultation, Normal Respiratory Effort Cardiovascular: Reports: Regular Rate, Regular Rhythm, No Murmurs GI/Abdominal Exam: Soft, Non-Tender, No Organomegaly, No Distention Extremities: Non-Tender, No Pedal Edema
== END 2019-08-28 13:00 | disposition home or self-care (01) | DRG 948 ==
LOC: JP.ED 22:07 → JP.MS 23:33 → OBSVTOIN 08-25 13:08
PROVIDERS: ADMIT Hospitalist; ATTEND Hospitalist
DX: R53.1 Weakness (principal); R79.89 Other specified abnormal findings of blood chemistry; I50.32 Chronic diastolic (congestive) heart failure; I25.10 Atherosclerotic heart disease of native coronary artery without angina pectoris; I11.0 Hypertensive heart disease with heart failure; I25.118 Atherosclerotic heart disease of native coronary artery with other forms of angina pectoris; M54.9 Dorsalgia, unspecified; G89.29 Other chronic pain; E11.9 Type 2 diabetes mellitus without complications; Z66 Do not resuscitate; H54.7 Unspecified visual loss; Z88.6 Allergy status to analgesic agent; R74.8 Abnormal levels of other serum enzymes; Z88.2 Allergy status to sulfonamides; Z88.0 Allergy status to penicillin; Z88.8 Allergy status to other drugs, medicaments and biological substances; Z79.82 Long term (current) use of aspirin; Z79.899 Other long term (current) drug therapy; I38 Endocarditis, valve unspecified; N42.9 Disorder of prostate, unspecified; R32 Unspecified urinary incontinence; Z79.51 Long term (current) use of inhaled steroids; Z95.0 Presence of cardiac pacemaker; Z95.1 Presence of aortocoronary bypass graft; Z90.89 Acquired absence of other organs; Z90.49 Acquired absence of other specified parts of digestive tract; Z88.5 Allergy status to narcotic agent
CPT/HCPCS: 36415 ×2; 71045 ×2; 76700 ×2; 80048; 80053; 80076; 82550; 82962; 83605; 83690; 84484; 85025 ×2; 96360; 96361; 97110; 97162; 99285; A9270 ×7; J7030 ×2; 81001; 83735; 97165-GO; 97530-GP; 99284; J1815; J2185; J7050

== ENCOUNTER 2019-09-07 00:25 | Observation (INO) | payer MEDICARE, OTHER ==
--- NOTE | 2019-09-07 00:54 | EDM.PDOC ---
ED HPI GENERAL MEDICAL PROBLEM - General Chief Complaint: Respiratory Problem Stated Complaint: [facility] Time Seen by Provider: 09/07/19 00:41 Source of Information: Reports: Patient, Old Records, RN Notes Reviewed History Limitations: Reports: No Limitations - History of Present Illness INITIAL COMMENTS - FREE TEXT/NARRATIVE: 84-year-old gentleman presents emergency department a complaint of shortness of breath, he states he gets more short of breath when he exerts himself does produce white sputum no fevers will get chest pain when he exerts himself. Does have a history of congestive heart failure ejection fraction around 30%. He denies any recent weight gain or leg edema he does have difficulty with some memory issues epigastric area Pain Score (Numeric/FACES): 2 - Related Data Allergies Allergy/AdvReac Type Severity Reaction Status Date / Time codeine Allergy Severe Fever Verified 09/07/19 00:34 Sulfa (Sulfonamide Allergy Severe Rash Verified 09/07/19 00:34 Antibiotics) celecoxib Allergy Rash Verified 09/07/19 00:34 hydrochlorothiazide Allergy Cannot Verified 09/07/19 00:34 Remember Penicillins Allergy Rash Verified 09/07/19 00:34 pioglitazone Allergy Rash Verified 09/07/19 00:34 tramadol Allergy Cannot Verified 09/07/19 00:34 Remember venlafaxine Allergy Cannot Verified 09/07/19 00:34 Remember Home Meds: Home Meds Aspirin 81 mg PO DAILY 05/13/19 [History] Cyanocobalamin (Vitamin B-12) [Vitamin B-12] 500 mcg PO DAILY 05/13/19 [History] Finasteride 5 mg PO DAILY 05/13/19 [History] Glimepiride [Amaryl] 1 mg PO WITHBREAKFAST 05/13/19 [History] Multivitamin [Multivitamins] 1 each PO DAILY 05/13/19 [History] Nitroglycerin [Nitrostat] 0.4 mg SL ASDIRECTED 05/13/19 [History] Omeprazole 40 mg PO ACBREAKFAST 05/13/19 [History] Sertraline [Zoloft] 150 mg PO DAILY 05/13/19 [History] carvediloL [Coreg] 12.5 mg PO BID 05/13/19 [History] Hydrocortisone [Hydrocortisone 2.5% Crm] 30 gm TOP BID #1 tube 05/31/19 [Rx] Fluticasone Propionate [Flonase Allergy Relief] 2 spray BRAEDEN DAILY 08/10/19 [ History] Furosemide 20 mg PO BID 08/10/19 [History] Olopatadine [Patanol 0.1% Ophth Soln] 1 drop EYEBOTH DAILY 08/10/19 [History] polyethylene glycoL 3350 [Miralax] 8.5 - 17 g PO DAILY PRN 08/10/19 [History] Benzonatate 100 mg PO TID PRN 08/24/19 [History] Isosorbide Mononitrate [Imdur] 30 mg PO DAILY 08/25/19 [History] Past Medical History HEENT History: Reports: Impaired Vision Cardiovascular History: Reports: Angina, Bypass, Heart Failure, Hypertension, Pacemaker, SOB on Exertion, Other (See Below) Other Cardiovascular History: leaking valves Respiratory History: Reports: SOB Genitourinary History: Reports: Prostate Disorder, Urinary Incontinence Musculoskeletal History: Reports: Back Pain, Chronic, Fracture, Other (See Below ) Other Musculoskeletal History: R fib Fx 05/13/19 Neurological History: Reports: Concussion Endocrine/Metabolic History: Reports: Diabetes, Type II Hematologic History: Reports: None Immunologic History: Reports: None Oncologic (Cancer) History: Reports: None Dermatologic History: Reports: Other (See Below) Other Dermatologic History: dermatitis - Infectious Disease History Infectious Disease History: Reports: Chicken Pox, Measles, Mumps, Rubella - Past Surgical History Head Surgeries/Procedures: Reports: None HEENT Surgical History: Reports: Tonsillectomy Cardiovascular Surgical History: Reports: Coronary Artery Bypass, Other (See Below) Other Cardiovascular Surgeries/Procedures: LEYLA GI Surgical History: Reports: Appendectomy, Harjit Fundoplication Social & Family History - Family History Family Medical History: Noncontributory Cardiac: Reports: [place] - Tobacco Use Smoking Status *Q: Never Smoker - Caffeine Use Caffeine Use: Reports: Coffee, Soda - Recreational Drug Use Recreational Drug Use: No - Living Situation & Occupation Occupation: Retired (lives alone in [place], has a Friend who drives him to appoinments and checks on him. has 4 Adult Children - 2 in [place]. 2 in [place] - they are not involved in his care.) ED ROS GENERAL - Review of Systems Review Of Systems: See Below Constitutional: Reports: No Symptoms HEENT: Reports: No Symptoms Respiratory: Reports: Shortness of Breath, Cough, Sputum Cardiovascular: Reports: Chest Pain, Dyspnea on Exertion. Denies: Edema GI/Abdominal: Reports: No Symptoms : Reports: No Symptoms Musculoskeletal: Reports: No Symptoms ED EXAM, GENERAL - Physical Exam Exam: See Below Exam Limited By: No Limitations General Appearance: Alert, WD/WN, No Apparent Distress Neck: Normal Inspection, Supple, Non-Tender, Full Range of Motion Respiratory/Chest: No Respiratory Distress, Lungs Clear, Normal Breath Sounds, No Accessory Muscle Use, Chest Non-Tender Cardiovascular: Regular Rate, Rhythm, No Murmur GI/Abdominal: Soft, Non-Tender Back Exam: Normal Inspection, Full Range of Motion. No: CVA Tenderness (R), CVA Tenderness (L) Extremities: Normal Inspection, No Pedal Edema Course - Vital Signs Last Recorded V/S: Last Vital Signs Temp 95.9 F L 09/07/19 00:29 Pulse 61 09/07/19 00:29 Resp 17 09/07/19 00:29 BP 119/74 09/07/19 00:29 Pulse Ox 97 09/07/19 00:29 - Orders/Labs/Meds Orders: Active Orders 24 hr Category Date Time Status Cardiac Monitoring [RC] .As Directed Care 09/07/19 00:48 Active EKG Documentation Completion [RC] ASDIRECTED Care 09/07/19 00:49 Active EKG 12 Lead [EK] Stat Ther 09/07/19 00:49 Ordered Labs: Laboratory Tests 09/07/19 09/07/19 Range/Units 01:00 01:00 WBC 9.5 (4.5-11.0) K/uL RBC 5.33 (4.30-5.90) M/uL Hgb 15.1 H (12.0-15.0) g/dL Hct 48.4 (40.0-54.0) % MCV 91 (80-98) fL MCH 28 (27-31) pg MCHC 31 L (32-36) % Plt Count 170 (150-400) K/uL Neut % (Auto) 78 H (36-66) % Lymph % (Auto) 8 L (24-44) % [place] % (Auto) 6 (2-6) % Eos % (Auto) 8 H (2-4) % Baso % (Auto) 1 (0-1) % Sodium 139 L (140-148) mmol/L Potassium 3.9 (3.6-5.2) mmol/L Chloride 100 (100-108) mmol/L Carbon Dioxide 29 (21-32) mmol/L Anion Gap 13.9 (5.0-14.0) mmol/L BUN 22 H (7-18) mg/dL Creatinine 1.8 H (0.8-1.3) mg/dL Est Cr Clr Drug Dosing 28.05 mL/min Estimated GFR (MDRD) 36 L (>60) Glucose 136 H (74-106) mg/dL Calcium 8.6 (8.5-10.1) mg/dL Total Bilirubin 2.1 H (0.2-1.0) mg/dL AST 74 H D (15-37) U/L ALT 102 H (12-78) U/L Alkaline Phosphatase 137 H (46-116) U/L Troponin I < 0.017 (0.000-0.056) ng/mL NT-Pro-B Natriuret Pep 4871 H (5-450) pg/mL Total Protein 6.8 (6.4-8.2) g/dL Albumin 3.0 L (3.4-5.0) g/dL Globulin 3.8 H (2.3-3.5) g/dL Albumin/Globulin Ratio 0.8 L (1.2-2.2) Meds: Medications Discontinued Medications Generic Name Dose Route Start Last Admin Trade Name Freq PRN Reason Stop Dose Admin Furosemide 40 mg 09/07/19 01:36 09/07/19 01:56 Lasix IVPUSH 09/07/19 01:37 40 mg ONETIME ONE Administration - Re-Assessments/Exams Free Text/Narrative Re-Assessment/Exam: 09/07/19 03:00 Did have a hypoxic event while in the emergency department at rest his saturations are well above 90% however with any exertion or movements increasing respirations he will become hypoxic recovers quickly on room air observed him down to around 85% Departure - Departure Time of Disposition: 03:00 Disposition: Admitted As Inpatient 65 Condition: Fair Clinical Impression: Congestive heart failure Qualifiers: Heart failure type: unspecified Heart failure chronicity: acute on chronic Qualified Code(s): I50.9 - Heart failure, unspecified - Discharge Information Referrals: PCP,None [Primary Care Provider] - Forms: ED Department Discharge Sepsis Event Note - Evaluation Sepsis Screening Result: No Definite Risk - Focused Exam Vital Signs: Vital Signs Temp Pulse Resp BP Pulse Ox 09/07/19 00:29 95.9 F L 61 17 119/74 97 09/07/19 00:27 95.9 F L 61 119/74 97 Date Exam was Performed: 09/07/19 Time Exam was Performed: 02:58 - My Orders Last 24 Hours: My Active Orders 09/07/19 00:48 Cardiac Monitoring [RC] .As Directed 09/07/19 00:49 EKG Documentation Completion [RC] ASDIRECTED EKG 12 Lead [EK] Stat - Assessment/Plan Last 24 Hours: My Active Orders 09/07/19 00:48 Cardiac Monitoring [RC] .As Directed 09/07/19 00:49 EKG Documentation Completion [RC] ASDIRECTED EKG 12 Lead [EK] Stat Plan: Assessment Acuity = acute on chronic Site and laterality = exacerbation of congestive heart failure Etiology = unknown Manifestations = dyspnea on exertion with hypoxia Location of injury = Home Lab values = CBC unremarkable creatinine elevated 1.8 consistent chronic renal failure stage G3 B total bilirubin elevated 2.1 consistent with hyperbilirubinemia AST elevated 74 ALT elevated 1 2 consistent elevated liver enzymes troponin is negative BNP elevated 4871 this is up from baseline around 1999 chest x-ray consistent with cardiomegaly Plan Call discussed case with hospitalist on-call at 250 kindly agreed to come and evaluate the patient in the emergency department for admission he has been given 40 mg Lasix IV with only 150 cc urine output This note was dictated using [employer] voice recognition software please call with any questions on syntax or grammar.
--- NOTE | 2019-09-07 01:16 | CRLCR ---
INDICATION: Shortness of breath TECHNIQUE: Chest radiograph 1 view COMPARISON: 08/24/2019 FINDINGS: Mediastinum: Previous median sternotomy and coronary artery bypass grafting (CABG) noted. There is a left cardiac pacer present with leads in the right atrium and right ventricle. Mild stable cardiomegaly is seen. Lung: Small lung volumes are present with perihilar vascular crowding and atelectasis noted. No sign of pleural effusion seen. No pneumothorax is identified. Bone and Soft tissue: Unremarkable for age. IMPRESSIONS: 1. Small lung volumes are present with perihilar vascular crowding and atelectasis noted. 2. Mild stable cardiomegaly is seen. Dictated by Fabricio Ovalle MD @ 09/07/2019 1:14:36 AM Dictated by: Fabricio Ovalle MD @ 09/07/2019 01:14:41 (Electronically Signed)
[2019-09-07] MEDS ORDERED: Furosemide 40 MG/4 ML VIAL IVPUSH ONE (01:36)
--- NOTE | 2019-09-07 03:57 | PCM.HP.2 ---
H&P History of Present Illness - General Date of Service: 09/07/19 Admit Problem/Dx: Admission Diagnosis/Problem Admission Diagnosis/Problem CHF, Congestive heart failure Source of Information: Patient, Provider, RN History Limitations: Reports: No Limitations - History of Present Illness Initial Comments - Free Text/Narative: 84-year-old gentleman presents emergency department a complaint of shortness of breath, he states he gets more short of breath when he exerts himself does produce white sputum no fevers will get chest pain when he exerts himself. Does have a history of congestive heart failure ejection fraction around 30%. He denies any recent weight gain or leg edema he does have difficulty with some memory issues epigastric area 09/07/19 03:00 Did have a hypoxic event while in the emergency department at rest his saturations are well above 90% however with any exertion or movements increasing respirations he will become hypoxic recovers quickly on room air observed him down to around 85% Assessment Acuity = acute on chronic Site and laterality = exacerbation of congestive heart failure Etiology = unknown Manifestations = dyspnea on exertion with hypoxia Lab values = CBC unremarkable creatinine elevated 1.8 consistent chronic renal failure stage G3 B total bilirubin elevated 2.1 consistent with hyperbilirubinemia AST elevated 74 ALT elevated 1 2 consistent elevated liver enzymes troponin is negative BNP elevated 4871 this is up from baseline around 1999 chest x-ray consistent with cardiomegaly Plan Call discussed case with hospitalist on-call at 250 kindly agreed to come and evaluate the patient in the emergency department for admission he has been given 40 mg Lasix IV with only 150 cc urine output Onset of Symptoms: Reports: Gradual Duration of Symptoms: Reports: Getting Worse (shortness of breath with activity) Location: Reports: Generalized Quality: Reports: Same as Previous Episode Severity: Moderate Improves with: Reports: Rest Worsens with: Reports: Movement Context: Reports: Other Associated Symptoms: Reports: Cough, Shortness of Breath epigastric area Pain Score (Numeric/FACES): 2 - Related Data Allergies/Adverse Reactions: Allergies Allergy/AdvReac Type Severity Reaction Status Date / Time codeine Allergy Severe Fever Verified 09/07/19 00:34 Sulfa (Sulfonamide Allergy Severe Rash Verified 09/07/19 00:34 Antibiotics) celecoxib Allergy Rash Verified 09/07/19 00:34 hydrochlorothiazide Allergy Cannot Verified 09/07/19 00:34 Remember Penicillins Allergy Rash Verified 09/07/19 00:34 pioglitazone Allergy Rash Verified 09/07/19 00:34 tramadol Allergy Cannot Verified 09/07/19 00:34 Remember venlafaxine Allergy Cannot Verified 09/07/19 00:34 Remember Home Medications: Home Meds Aspirin 81 mg PO DAILY 05/13/19 [History] Cyanocobalamin (Vitamin B-12) [Vitamin B-12] 500 mcg PO DAILY 05/13/19 [History] Finasteride 5 mg PO DAILY 05/13/19 [History] Glimepiride [Amaryl] 1 mg PO WITHBREAKFAST 05/13/19 [History] Multivitamin [Multivitamins] 1 each PO DAILY 05/13/19 [History] Nitroglycerin [Nitrostat] 0.4 mg SL ASDIRECTED 05/13/19 [History] Omeprazole 40 mg PO ACBREAKFAST 05/13/19 [History] Sertraline [Zoloft] 150 mg PO DAILY 05/13/19 [History] carvediloL [Coreg] 12.5 mg PO BID 05/13/19 [History] Hydrocortisone [Hydrocortisone 2.5% Crm] 30 gm TOP BID #1 tube 05/31/19 [Rx] Fluticasone Propionate [Flonase Allergy Relief] 2 spray BRAEDEN DAILY 08/10/19 [ History] Furosemide 20 mg PO BID 08/10/19 [History] Olopatadine [Patanol 0.1% Ophth Soln] 1 drop EYEBOTH DAILY 08/10/19 [History] polyethylene glycoL 3350 [Miralax] 8.5 - 17 g PO DAILY PRN 08/10/19 [History] Benzonatate 100 mg PO TID PRN 08/24/19 [History] Isosorbide Mononitrate [Imdur] 30 mg PO DAILY 08/25/19 [History] Past Medical History HEENT History: Reports: Impaired Vision Cardiovascular History: Reports: Angina, Bypass, Heart Failure, Hypertension, Pacemaker, SOB on Exertion, Other (See Below) Other Cardiovascular History: leaking valves Respiratory History: Reports: SOB Genitourinary History: Reports: Prostate Disorder, Urinary Incontinence Musculoskeletal History: Reports: Back Pain, Chronic, Fracture, Other (See Below ) Other Musculoskeletal History: R fib Fx 05/13/19 Neurological History: Reports: Concussion Endocrine/Metabolic History: Reports: Diabetes, Type II Hematologic History: Reports: None Immunologic History: Reports: None Oncologic (Cancer) History: Reports: None Dermatologic History: Reports: Other (See Below) Other Dermatologic History: dermatitis - Infectious Disease History Infectious Disease History: Reports: Chicken Pox, Measles, Mumps, Rubella - Past Surgical History Head Surgeries/Procedures: Reports: None HEENT Surgical History: Reports: Tonsillectomy Cardiovascular Surgical History: Reports: Coronary Artery Bypass, Other (See Below) Other Cardiovascular Surgeries/Procedures: LEYLA GI Surgical History: Reports: Appendectomy, Harjit Fundoplication Social & Family History - Family History Family Medical History: Noncontributory Cardiac: Reports: [place] - Tobacco Use Smoking Status *Q: Never Smoker - Caffeine Use Caffeine Use: Reports: Coffee, Soda - Recreational Drug Use Recreational Drug Use: No - Living Situation & Occupation Occupation: Retired (lives alone in [place], has a Friend who drives him to appoinments and checks on him. has 4 Adult Children - 2 in [place]. 2 in [place] - they are not involved in his care.) H&P Review of Systems - Review of Systems: Review Of Systems: See Below General: Reports: Weakness, Fatigue, Other (worsen shortness of breath with activity) HEENT: Reports: Glasses Pulmonary: Reports: Shortness of Breath, Cough Cardiovascular: Reports: Dyspnea on Exertion, Edema (chronic bilateral lower legs) Gastrointestinal: Reports: Abdominal Pain (reports chronic lower abdominal pain from enlarged prostate.) Genitourinary: Reports: No Symptoms Musculoskeletal: Reports: No Symptoms Skin: Reports: No Symptoms Psychiatric: Reports: No Symptoms Neurological: Reports: No Symptoms Hematologic/Lymphatic: Reports: No Symptoms Exam - Exam Exam: See Below - Vital Signs Vital Signs: Last Vital Signs Temp 35.7 C L 09/07/19 02:50 Pulse 60 09/07/19 03:24 Resp 24 H 09/07/19 03:24 BP 117/72 09/07/19 03:24 Pulse Ox 94 L 09/07/19 03:24 Weight: 78.471 kg - Exam Quality Assessment: Supplemental Oxygen General: Alert, Cooperative, Other (sleeping) HEENT: Hearing Intact, Glasses, Other (mouth is dry) Neck: Supple, Trachea Midline Lungs: Clear to Auscultation, Normal Respiratory Effort, Decreased Breath Sounds (bilateral at bases) Cardiovascular: Regular Rate, Regular Rhythm GI/Abdominal Exam: Normal Bowel Sounds, Soft, No Distention, No Abnormal Bruit, No Mass, Pelvis Stable, Tender (low abdomen) (Male) Exam: Deferred Rectal (Males) Exam: Deferred Extremities: Pedal Edema (2+ bilateral lower leg edema) Peripheral Pulses: 2+: Radial (L), Radial (R) Skin: Warm, Dry, Intact Neurological: Reflexes Equal Bilateral, Strength Equal Bilateral Neuro Extensive - Mental Status: Alert, Normal Mood/Affect Psychiatric: Alert, Normal Affect, Normal Mood - Patient Data Lab Results Last 24 hrs: Laboratory Results - last 24 hr 09/07/19 09/07/19 09/07/19 Range/Units 01:00 01:00 03:33 WBC 9.5 (4.5-11.0) K/uL RBC 5.33 (4.30-5.90) M/uL Hgb 15.1 H (12.0-15.0) g/dL Hct 48.4 (40.0-54.0) % MCV 91 (80-98) fL MCH 28 (27-31) pg MCHC 31 L (32-36) % Plt Count 170 (150-400) K/uL Neut % (Auto) 78 H (36-66) % Lymph % (Auto) 8 L (24-44) % [place] % (Auto) 6 (2-6) % Eos % (Auto) 8 H (2-4) % Baso % (Auto) 1 (0-1) % Sodium 139 L (140-148) mmol/L Potassium 3.9 (3.6-5.2) mmol/L Chloride 100 (100-108) mmol/L Carbon Dioxide 29 (21-32) mmol/L Anion Gap 13.9 (5.0-14.0) mmol/L BUN 22 H (7-18) mg/dL Creatinine 1.8 H (0.8-1.3) mg/dL Est Cr Clr Drug Dosing 28.05 mL/min Estimated GFR (MDRD) 36 L (>60) Glucose 136 H (74-106) mg/dL Calcium 8.6 (8.5-10.1) mg/dL Total Bilirubin 2.1 H (0.2-1.0) mg/dL AST 74 H D (15-37) U/L ALT 102 H (12-78) U/L Alkaline Phosphatase 137 H (46-116) U/L Troponin I < 0.017 (0.000-0.056) ng/mL NT-Pro-B Natriuret Pep 4871 H (5-450) pg/mL Total Protein 6.8 (6.4-8.2) g/dL Albumin 3.0 L (3.4-5.0) g/dL Globulin 3.8 H (2.3-3.5) g/dL Albumin/Globulin Ratio 0.8 L (1.2-2.2) Urine Color Yellow (YELLOW) Urine Appearance Clear (CLEAR) Urine pH 5.5 (5.0-8.0) Ur Specific [place] 1.020 (1.008-1.030) Urine Protein Negative (NEGATIVE) mg/dL Urine Glucose (UA) Negative (NEGATIVE) mg/dL Urine Ketones Negative (NEGATIVE) mg/dL Urine Occult Blood Negative (NEGATIVE) Urine Nitrite Negative (NEGATIVE) Urine Bilirubin Negative (NEGATIVE) Urine Urobilinogen 2.0 H (0.2-1.0) EU/dL Ur Leukocyte Esterase Negative (NEGATIVE) Urine RBC 0-5 (0-5) Urine WBC 0-5 (0-5) Ur Epithelial Cells Not seen Amorphous Sediment Not seen Urine Bacteria Rare Urine Mucus Not seen Result Diagrams: 09/07/19 01:00 09/07/19 01:00 Sepsis Event Note - Evaluation Sepsis Screening Result: No Definite Risk - Focused Exam Vital Signs: Vital Signs Temp Pulse Resp BP Pulse Ox 09/07/19 03:24 60 24 H 117/72 94 L 09/07/19 02:50 35.7 C L 62 15 116/71 96 09/07/19 02:10 61 30 H 102/70 92 L 09/07/19 02:00 59 L 17 110/67 91 L 09/07/19 01:50 60 25 H 115/70 91 L 09/07/19 00:29 35.5 C L 61 17 119/74 97 09/07/19 00:27 35.5 C L 61 119/74 97 Date Exam was Performed: 09/07/19 Time Exam was Performed: 04:10 - Problem List (1) Congestive heart failure SNOMED Code(s): 95218639 ICD Code: I50.9 - HEART FAILURE, UNSPECIFIED Status: Acute Priority: High Current Visit: Yes Qualifiers: Heart failure type: unspecified Heart failure chronicity: acute on chronic Qualified Code(s): I50.9 - Heart failure, unspecified (2) CKD (chronic kidney disease), stage III SNOMED Code(s): 087893838 ICD Code: N18.3 - CHRONIC KIDNEY DISEASE, STAGE 3 (MODERATE) Status: Chronic Priority: Low Current Visit: No (3) Diabetes mellitus type II, controlled SNOMED Code(s): 56280973, 157140210 ICD Code: E11.9 - TYPE 2 DIABETES MELLITUS WITHOUT COMPLICATIONS Status: Chronic Priority: Low Current Visit: No Qualifiers: Diabetes mellitus snf insulin use: without termite inspector use Diabetes mellitus complication status: with unspecified complications Qualified Code(s) : E11.8 - Type 2 diabetes mellitus with unspecified complications Problem List Initiated/Reviewed/Updated: Yes Orders Last 24hrs: Active Orders 24 hr Category Date Time Status Patient Status Manage Transfer [TRANSFER] Routine ADT 09/07/19 03:37 Active Cardiac Monitoring [RC] .As Directed Care 09/07/19 00:48 Active EKG Documentation Completion [RC] ASDIRECTED Care 09/07/19 00:49 Active CULTURE URINE [RM] Stat Lab 09/07/19 03:33 Received Resuscitation Status Routine Resus Stat 09/07/19 03:38 Ordered EKG 12 Lead [EK] Stat Ther 09/07/19 00:49 Ordered Assessment/Plan Comment:: ASSESSMENT / PLAN 84-year-old gentleman presents emergency department a complaint of shortness of breath, he states he gets more short of breath when he exerts himself does produce white sputum no fevers will get chest pain when he exerts himself. Does have a history of congestive heart failure ejection fraction around 30%. He denies any recent weight gain or leg edema he does have difficulty with some memory issues epigastric area 09/07/19 03:00 Did have a hypoxic event while in the emergency department at rest his saturations are well above 90% however with any exertion or movements increasing respirations he will become hypoxic recovers quickly on room air observed him down to around 85% Assessment Acuity = acute on chronic Site and laterality = exacerbation of congestive heart failure Etiology = unknown Manifestations = dyspnea on exertion with hypoxia Lab values = CBC unremarkable creatinine elevated 1.8 consistent chronic renal failure stage G3 B total bilirubin elevated 2.1 consistent with hyperbilirubinemia AST elevated 74 ALT elevated 1 2 consistent elevated liver enzymes troponin is negative BNP elevated 4871 this is up from baseline around 1999 chest x-ray consistent with cardiomegaly Medication in ER: he has been given 40 mg Lasix IV with only 150 cc urine output. Urine sample obtain dark and concentrated. Congestive Heart Failure with CKD 3. Mr. Tolbert was admitted to [facility] on to 08-28-2019 for similar symptoms. -Admit to [address] [place] [address] for further monitoring -IV Fluids for rehydration NS at 75 mL per hour -IV Lasix 40 mg given in ER, am dose of Lasix 20mg po bid -Advise to notify nurses of any chest pain or other symptoms TYPE 2 DIABETES MELLITUS - oral medications - no insulin -Continue outpatient medications -4 times a day glucometers -blood glucose monitor before meals and at bedtimes -diet; consistent carb Cardiovascular disease -continue outpatient medications Maintenance issues -Orders home meds: ordered -Nutrition: consistent diet -Reza catheter not indicated at this time -DVT: Lovenox 30 mg subcut daily -PPI; IV Protonix 40mg daily -consult OT for discharge planning -consult PT for strengthing. CODE STATUS: DNR/DNI Admission status: Admit to ICU Med-Surg Overflow Admission justification. This patient will be admitted for inpatient services and is medically appropriate meeting medical necessity for inpatient admission as outlined in my documentation. I reasonably expect the patient will require inpatient services that span. Time over 2 midnights. I reasonably expect this patient to be discharged or transferred within 96 hours after admission to the critical access hospital. Disposition: home Primary care provider: Dr. Tipton Hospitalist: Dr. Navarro
[2019-09-07] MEDS ORDERED: Sodium Chloride 0.9% 1,000 ML IV SCH (04:09)
[2019-09-07] MEDS ORDERED: Bisacodyl 5 MG Tab PO PRN (04:09)
[2019-09-07] MEDS ORDERED: LORazepam 2 MG/ML SDV IV PRN (04:09)
[2019-09-07] MEDS ORDERED: Polyethylene Glycol 3350 Powder 119 GM Bottle PO PRN (04:09)
[2019-09-07] MEDS ORDERED: Acetaminophen 325 MG Tab PO PRN (04:09)
[2019-09-07] MEDS ORDERED: Docusate Sodium 100 MG Cap PO PRN (04:09)
[2019-09-07] MEDS ORDERED: Ondansetron 4 MG Tab.DIS PO PRN (04:09)
[2019-09-07] MEDS ORDERED: Albuterol 0.083% 2.5 MG/3 ML Neb Soln NEB PRN (04:09)
[2019-09-07] MEDS ORDERED: Benzonatate 100 MG Cap PO PRN (04:09)
[2019-09-07] MEDS ORDERED: Glimepiride 2 MG Tab PO SCH (08:00)
[2019-09-07] MEDS ORDERED: Furosemide 20 MG Tab PO SCH (08:00)
[2019-09-07] MEDS: ISOSORBIDE MONONITRATE 30 MG PO SCH (08:24)
[2019-09-07] MEDS: Cyanocobalamin (Vitamin B12) 1,000 MCG Tab PO SCH (08:24)
[2019-09-07] MEDS: Finasteride 5 MG Tab PO SCH (08:25)
[2019-09-07] MEDS: Pantoprazole 40 MG Tab.CR PO SCH (08:25)
[2019-09-07] MEDS: Enoxaparin 30 MG/0.3 ML Syringe SUBCUT SCH (08:25)
[2019-09-07] MEDS: Hydrocortisone 2.5% Crm 30 GM Tube TOP SCH (08:27)
[2019-09-07] MEDS ORDERED: Carvedilol 12.5 MG Tab PO SCH (09:00)
[2019-09-07] MEDS ORDERED: Sertraline 50 MG Tab PO SCH (09:00)
--- NOTE | 2019-09-07 09:26 | PCM.PN ---
- General Info Date of Service: 09/07/19 Subjective Update: Mr. Tolbert 84-year-old gentleman who was admitted through the emergency department last night with shortness of breath and hypoxia. He has a known history of congestive heart failure with decreased left ventricular function as well as underlying valvular disease. He was discharged from this facility about a week and a half ago when he was hospitalized for weakness and elevated liver enzymes. Liver enzymes have remained elevated and are likely secondary to his ongoing congestive heart failure. Evaluation during last hospitalization showed no other underlying etiology. Functional Status: Reports: Tolerating Diet, Urinating - Review of Systems General: Reports: Weakness, Fatigue, Malaise. Denies: Fever, Chills Pulmonary: Reports: Shortness of Breath. Denies: Pleuritic Chest Pain, Cough, Sputum, Hemoptysis, Wheezing Cardiovascular: Reports: Dyspnea on Exertion. Denies: Chest Pain, Palpitations , Orthopnea, PND, Edema, Lightheadedness Gastrointestinal: Reports: No Symptoms - Patient Data Vitals - Most Recent: Last Vital Signs Temp 96.6 F L 09/07/19 08:09 Pulse 90 09/07/19 08:27 Resp 13 09/07/19 08:09 BP 122/86 09/07/19 08:27 Pulse Ox 97 09/07/19 09:02 Weight - Most Recent: 173 lb I&O - Last 24 Hours: Intake & Output 09/06/19 09/07/19 09/07/19 22:59 06:59 14:59 Intake Total 300 Output Total 150 Balance -150 300 Lab Results Last 24 Hours: Laboratory Results - last 24 hr 09/07/19 09/07/19 09/07/19 Range/Units 01:00 01:00 03:33 WBC 9.5 (4.5-11.0) K/uL RBC 5.33 (4.30-5.90) M/uL Hgb 15.1 H (12.0-15.0) g/dL Hct 48.4 (40.0-54.0) % MCV 91 (80-98) fL MCH 28 (27-31) pg MCHC 31 L (32-36) % Plt Count 170 (150-400) K/uL Neut % (Auto) 78 H (36-66) % Lymph % (Auto) 8 L (24-44) % [place] % (Auto) 6 (2-6) % Eos % (Auto) 8 H (2-4) % Baso % (Auto) 1 (0-1) % Sodium 139 L (140-148) mmol/L Potassium 3.9 (3.6-5.2) mmol/L Chloride 100 (100-108) mmol/L Carbon Dioxide 29 (21-32) mmol/L Anion Gap 13.9 (5.0-14.0) mmol/L BUN 22 H (7-18) mg/dL Creatinine 1.8 H (0.8-1.3) mg/dL Est Cr Clr Drug Dosing 28.05 mL/min Estimated GFR (MDRD) 36 L (>60) Glucose 136 H (74-106) mg/dL Calcium 8.6 (8.5-10.1) mg/dL Total Bilirubin 2.1 H (0.2-1.0) mg/dL AST 74 H D (15-37) U/L ALT 102 H (12-78) U/L Alkaline Phosphatase 137 H (46-116) U/L Troponin I < 0.017 (0.000-0.056) ng/mL NT-Pro-B Natriuret Pep 4871 H (5-450) pg/mL Total Protein 6.8 (6.4-8.2) g/dL Albumin 3.0 L (3.4-5.0) g/dL Globulin 3.8 H (2.3-3.5) g/dL Albumin/Globulin Ratio 0.8 L (1.2-2.2) Urine Color Yellow (YELLOW) Urine Appearance Clear (CLEAR) Urine pH 5.5 (5.0-8.0) Ur Specific [place] 1.020 (1.008-1.030) Urine Protein Negative (NEGATIVE) mg/dL Urine Glucose (UA) Negative (NEGATIVE) mg/dL Urine Ketones Negative (NEGATIVE) mg/dL Urine Occult Blood Negative (NEGATIVE) Urine Nitrite Negative (NEGATIVE) Urine Bilirubin Negative (NEGATIVE) Urine Urobilinogen 2.0 H (0.2-1.0) EU/dL Ur Leukocyte Esterase Negative (NEGATIVE) Urine RBC 0-5 (0-5) Urine WBC 0-5 (0-5) Ur Epithelial Cells Not seen Amorphous Sediment Not seen Urine Bacteria Rare Urine Mucus Not seen Med Orders - Current: Current Medications Acetaminophen (Tylenol) 650 mg PO Q4H PRN PRN Reason: Pain (Mild 1-3)/fever Albuterol (Proventil Neb Soln) 2.5 mg NEB Q4H PRN PRN Reason: Shortness Of Breath/wheezing Benzonatate (Tessalon Perles) 100 mg PO TID PRN PRN Reason: Cough Bisacodyl (Dulcolax) 5 mg PO DAILY PRN PRN Reason: Constipation Carvedilol (Coreg) 12.5 mg PO BID [facility] Last Admin: 09/07/19 08:27 Dose: 12.5 mg Cyanocobalamin (Vitamin B12) 500 mcg PO DAILY [facility] Last Admin: 09/07/19 08:24 Dose: 500 mcg Docusate Sodium (Colace) 100 mg PO BID PRN PRN Reason: Constipation Enoxaparin Sodium (Lovenox) 30 mg SUBCUT DAILY [facility] Last Admin: 09/07/19 08:25 Dose: 30 mg Finasteride (Proscar) 5 mg PO DAILY [facility] Last Admin: 09/07/19 08:25 Dose: 5 mg Furosemide (Lasix) 40 mg PO Q12H [facility] Glimepiride (Amaryl) 1 mg PO WITHBREAKFAST [facility] Last Admin: 09/07/19 08:25 Dose: 1 mg Hydrocortisone (Hydrocortisone 2.5% Crm) 0 gm TOP BID [facility] Last Admin: 09/07/19 08:27 Dose: 1 gm Sodium Chloride (Normal Saline) 1,000 mls @ 75 mls/hr IV ASDIRECTED [facility] Last Admin: 09/07/19 04:51 Dose: 75 mls/hr Isosorbide Mononitrate (Imdur) 30 mg PO DAILY@0730 [facility] Last Admin: 09/07/19 08:24 Dose: 30 mg Lorazepam (Ativan) 1 mg IV Q6H PRN PRN Reason: Nausea/Vomiting Ondansetron HCl (Zofran Odt) 4 mg PO Q6H PRN PRN Reason: Nausea able to take PO Pantoprazole Sodium (Protonix) 40 mg PO ACBREAKFAST [facility] Last Admin: 09/07/19 08:25 Dose: 40 mg Polyethylene Glycol (Miralax) 8.5 - 17 gm PO DAILY PRN PRN Reason: Constipation Sertraline HCl (Zoloft) 150 mg PO DAILY [facility] Last Admin: 09/07/19 08:29 Dose: 150 mg Discontinued Medications Furosemide (Lasix) 40 mg IVPUSH ONETIME ONE Stop: 09/07/19 01:37 Last Admin: 09/07/19 01:56 Dose: 40 mg Furosemide (Lasix) 20 mg PO BIDDIURETIC [facility]ABILA Last Admin: 09/07/19 08:25 Dose: 20 mg - Exam Quality Assessment: Supplemental Oxygen, DVT Prophylaxis General: Alert, Oriented, Cooperative, Mild Distress Lungs: Clear to Auscultation, Normal Respiratory Effort, Decreased Breath Sounds Cardiovascular: Regular Rate, Regular Rhythm, Murmurs GI/Abdominal Exam: Soft, Non-Tender, No Organomegaly, No Distention Extremities: Non-Tender, No Pedal Edema Sepsis Event Note - Evaluation Sepsis Screening Result: No Definite Risk - Focused Exam Vital Signs: Vital Signs Temp Pulse Pulse Resp BP BP Pulse Ox 09/07/19 09:02 97 09/07/19 08:27 90 122/86 09/07/19 08:24 122/86 09/07/19 08:09 96.6 F L 94 13 122/86 97 09/07/19 04:16 93 L 09/07/19 04:13 96.4 F L 60 28 H 109/60 91 L 09/07/19 03:24 60 24 H 117/72 94 L 09/07/19 02:50 96.2 F L 62 15 116/71 96 09/07/19 02:10 61 30 H 102/70 92 L 09/07/19 02:00 59 L 17 110/67 91 L 09/07/19 01:50 60 25 H 115/70 91 L 09/07/19 00:29 95.9 F L 61 17 119/74 97 09/07/19 00:27 95.9 F L 61 119/74 97 Date Exam was Performed: 09/07/19 Time Exam was Performed: 09:22 - Problem List Review Problem List Initiated/Reviewed/Updated: Yes - My Orders Last 24 Hours: My Active Orders 09/07/19 09:21 Consult to Physical Therapy [PT Evaluation and Treatment] [CONS] Routine 09/07/19 19:00 Furosemide [Lasix] 40 mg PO Q12H 09/08/19 05:00 COMPREHENSIVE METABOLIC PN,CMP [CHEM] Timed - Plan Plan:: ASSESSMENT / PLAN Congestive Heart Failure with CKD 3. Mr. Tolbert was admitted to [facility] on to 08-28-2019 for similar symptoms. -Saline lock IV -Furosemide 40 mg p.o. twice daily TYPE 2 DIABETES MELLITUS - oral medications - no insulin -Continue outpatient medications -4 times a day glucometers -blood glucose monitor before meals and at bedtimes -diet; consistent carb Cardiovascular disease -continue outpatient medications Elevated liver enzymes-please secondary to congestive heart failure, no other underlying etiology identified -Reassess liver tests in a.m. Maintenance issues -Orders home meds: ordered -Nutrition: consistent diet -Reza catheter not indicated at this time -DVT: Lovenox 30 mg subcut daily -PPI; IV Protonix 40mg daily -consult OT for discharge planning -consult PT for strengthing. CODE STATUS: DNR/DNI Admission status: Admit to ICU Med-Surg Overflow Admission justification. This patient will be admitted for inpatient services and is medically appropriate meeting medical necessity for inpatient admission as outlined in my documentation. I reasonably expect the patient will require inpatient services that span. Time over 2 midnights. I reasonably expect this patient to be discharged or transferred within 96 hours after admission to the critical [facility]. Disposition: home Primary care provider: Dr. Tipton Hospitalist: Dr. Navarro
[2019-09-07] MEDS: Carvedilol 6.25 MG Tab**POM PO SCH (17:40)
[2019-09-07] MEDS: Furosemide 40 MG Tab**POM PO SCH (18:42)
[2019-09-08] MEDS: Hydrocortisone 2.5% Crm 30 GM Tube TOP SCH ×2 (00:32→09:41)
[2019-09-08] MEDS: Furosemide 40 MG Tab**POM PO SCH (06:45)
[2019-09-08] MEDS: ISOSORBIDE MONONITRATE 30 MG PO SCH (07:29)
[2019-09-08] MEDS: Pantoprazole 40 MG Tab.CR PO SCH (07:30)
[2019-09-08] MEDS: Carvedilol 6.25 MG Tab**POM PO SCH (07:38)
[2019-09-08] MEDS ORDERED: GLIMEPIRIDE 1 MG PO SCH (08:00)
[2019-09-08] MEDS ORDERED: SERTRALINE 100 MG PO SCH (09:00)
[2019-09-08] MEDS ORDERED: Potassium Chloride 20 MEQ Tab.ER PO ONE (09:00)
[2019-09-08] MEDS: Enoxaparin 30 MG/0.3 ML Syringe SUBCUT SCH (09:43)
[2019-09-08] MEDS: Finasteride 5 MG Tab PO SCH (09:46)
[2019-09-08] MEDS: Cyanocobalamin (Vitamin B12) 1,000 MCG Tab PO SCH (09:46)
--- NOTE | 2019-09-08 12:04 | PCM.DCSUM1 ---
Discharge Summary - Hospital Course Brief History: Mr. Tolbert an 84-year-old gentleman who was admitted through the emergency department with weakness and shortness of breath secondary to congestive heart failure exacerbation. - Discharge Data Discharge Date: 09/08/19 Discharge Disposition: DC/Tfer to SNF 03 Condition: Fair - Referral to Home Health Primary Care Physician: PCP None - Discharge Diagnosis/Problem(s) (1) Congestive heart failure SNOMED Code(s): 73121930 ICD Code: I50.9 - HEART FAILURE, UNSPECIFIED Status: Acute Priority: High Current Visit: Yes Qualifiers: Heart failure type: unspecified Heart failure chronicity: acute on chronic Qualified Code(s): I50.9 - Heart failure, unspecified (2) Elevated liver enzymes SNOMED Code(s): 295274804 ICD Code: R74.8 - ABNORMAL LEVELS OF OTHER SERUM ENZYMES Status: Acute Current Visit: No (3) CKD (chronic kidney disease), stage III SNOMED Code(s): 220881105 ICD Code: N18.3 - CHRONIC KIDNEY DISEASE, STAGE 3 (MODERATE) Status: Chronic Priority: Low Current Visit: No (4) Diabetes mellitus type II, controlled SNOMED Code(s): 58896799, 959243145 ICD Code: E11.9 - TYPE 2 DIABETES MELLITUS WITHOUT COMPLICATIONS Status: Chronic Priority: Low Current Visit: No Qualifiers: Diabetes mellitus machine long goods helper insulin use: without senior care use Diabetes mellitus complication status: with unspecified complications Qualified Code(s) : E11.8 - Type 2 diabetes mellitus with unspecified complications (5) CAD (coronary artery disease) SNOMED Code(s): 07065208 ICD Code: I25.10 - ATHSCL HEART DISEASE OF [place] CORONARY ARTERY W/O ANG PCTRS Status: Chronic Priority: Low Current Visit: No Qualifiers: Coronary Disease-Associated Artery/Lesion type: [place] artery [place] vs. transplanted heart: [place] heart Associated angina: with stable angina Qualified Code(s): I25.118 - Atherosclerotic heart disease of [place] coronary artery with other forms of angina pectoris (6) Severe mitral regurgitation SNOMED Code(s): 80291652 ICD Code: I34.0 - NONRHEUMATIC MITRAL (VALVE) INSUFFICIENCY Status: Chronic Current Visit: No - Patient Summary/Data Consults: Consultations 09/07/19 04:09 Consult to Spiritual Care [CONS] Routine 09/07/19 09:21 Consult to Physical Therapy [PT Evaluation and Treatment] [CONS] Routine Please Evaluate and Treat. PT Reason for Consult: Strengthening This query below is only for informational purposes and is not editable. Admission Diagnosis/Problem: CHF, Congestive heart failure Hospital Course: Mr. Tolbert 84-year-old gentleman who was admitted through the emergency department last night with shortness of breath and hypoxia secondary to congestive heart failure exacerbation. He has a known history of congestive heart failure with decreased left ventricular function as well as underlying severe mitral regurgitation. He was discharged from this facility about a week and a half ago when he was hospitalized for weakness and elevated liver enzymes. Liver enzymes have remained elevated and are likely secondary to his ongoing congestive heart failure. Evaluation during last hospitalization showed no other underlying etiology. While in the emergency department he received 40 mg of IV furosemide. During hospitalization his baseline dose of furosemide was increased to 40 mg p.o. twice daily. Liver enzymes were noted to be elevated on admission, but did improve during hospitalization with management of his congestive heart failure. Glucose levels were monitored during his hospital stay as well for management of his type 2 diabetes mellitus. By the time of discharge he was feeling better and off of supplemental oxygen with adequate saturation on room air. He will be discharged with increased dose of furosemide 40 mg p.o. twice daily. Because of his generalized weakness and failure at home he will be [facility] to [facility] for restorative physical therapy and Occupational Therapy. Long- term plan will be to transition from [facility] to assisted living facility. Activity will be as tolerated and he will be on a 2 g sodium diet. Follow-up with primary care will be at the [facility] as needed. BMP should be obtained in 1 week for follow-up of increased diuretic therapy. - Patient Instructions Diet: Low Sodium Activity: As Tolerated Other/Special Instructions: Follow-up lab in 1 week; BMP - Discharge Plan *PRESCRIPTION DRUG MONITORING PROGRAM REVIEWED*: Not Applicable *COPY OF PRESCRIPTION DRUG MONITORING REPORT IN PATIENT LUIS: Not Applicable Prescriptions/Med Rec: Furosemide [Lasix] 40 mg PO Q12H #60 tablet Home Medications: Home Meds Aspirin 81 mg PO DAILY 05/13/19 [History] Cyanocobalamin (Vitamin B-12) [Vitamin B-12] 500 mcg PO DAILY 05/13/19 [History] Finasteride 5 mg PO DAILY 05/13/19 [History] Glimepiride [Amaryl] 1 mg PO WITHBREAKFAST 05/13/19 [History] Multivitamin [Multivitamins] 1 each PO DAILY 05/13/19 [History] Nitroglycerin [Nitrostat] 0.4 mg SL ASDIRECTED 05/13/19 [History] Omeprazole 40 mg PO ACBREAKFAST 05/13/19 [History] Sertraline [Zoloft] 150 mg PO DAILY 05/13/19 [History] carvediloL [Coreg] 12.5 mg PO BID 05/13/19 [History] Hydrocortisone [Hydrocortisone 2.5% Crm] 30 gm TOP BID #1 tube 05/31/19 [Rx] Fluticasone Propionate [Flonase Allergy Relief] 2 spray BRAEDEN DAILY 08/10/19 [ History] Olopatadine [Patanol 0.1% Ophth Soln] 1 drop EYEBOTH DAILY 08/10/19 [History] polyethylene glycoL 3350 [Miralax] 8.5 - 17 g PO DAILY PRN 08/10/19 [History] Benzonatate 100 mg PO TID PRN 08/24/19 [History] Isosorbide Mononitrate [Imdur] 30 mg PO DAILY 08/25/19 [History] Furosemide [Lasix] 40 mg PO Q12H #60 tablet 09/08/19 [Rx] - Discharge Summary/Plan Comment DC Time >30 min.: No - Patient Data Vitals - Most Recent: Last Vital Signs Temp 97.1 F 09/08/19 10:22 Pulse 90 09/08/19 10:22 Resp 16 09/08/19 10:22 BP 115/76 09/08/19 10:22 Pulse Ox 95 09/08/19 10:22 Weight - Most Recent: 172 lb 2.014 oz I&O - Last 24 hours: Intake & Output 09/07/19 09/08/19 09/08/19 22:59 06:59 14:59 Intake Total 1458 120 Output Total 750 Balance 1458 -750 120 Lab Results - Last 24 hrs: Laboratory Results - last 24 hr 09/08/19 Range/Units 05:30 Sodium 140 (140-148) mmol/L Potassium 3.3 L (3.6-5.2) mmol/L Chloride 104 (100-108) mmol/L Carbon Dioxide 28 (21-32) mmol/L Anion Gap 11.3 (5.0-14.0) mmol/L BUN 22 H (7-18) mg/dL Creatinine 1.4 H (0.8-1.3) mg/dL Est Cr Clr Drug Dosing 36.07 mL/min Estimated GFR (MDRD) 48 L (>60) Glucose 127 H (74-106) mg/dL Calcium 8.1 L (8.5-10.1) mg/dL Total Bilirubin 1.3 H (0.2-1.0) mg/dL AST 67 H (15-37) U/L ALT 85 H (12-78) U/L Alkaline Phosphatase 129 H (46-116) U/L Total Protein 6.2 L (6.4-8.2) g/dL Albumin 2.6 L (3.4-5.0) g/dL Globulin 3.6 H (2.3-3.5) g/dL Albumin/Globulin Ratio 0.7 L (1.2-2.2) MARTÍN Results - Last 24 hrs: Microbiology 09/07/19 03:33 Urine Culture - Preliminary Urine, Clean Catch MIXED POSITIVE SAMMIE DAY 1 Med Orders - Current: Current Medications Acetaminophen (Tylenol) 650 mg PO Q4H PRN PRN Reason: Pain (Mild 1-3)/fever Albuterol (Proventil Neb Soln) 2.5 mg NEB Q4H PRN PRN Reason: Shortness Of Breath/wheezing Benzonatate (Tessalon Perles) 100 mg PO TID PRN PRN Reason: Cough Bisacodyl (Dulcolax) 5 mg PO DAILY PRN PRN Reason: Constipation Carvedilol (Coreg) 12.5 mg PO BIDMEALS [facility] Last Admin: 09/08/19 07:38 Dose: 12.5 mg Cyanocobalamin (Vitamin B12) 500 mcg PO DAILY [facility] Last Admin: 09/08/19 09:46 Dose: 500 mcg Docusate Sodium (Colace) 100 mg PO BID PRN PRN Reason: Constipation Enoxaparin Sodium (Lovenox) 40 mg SUBCUT DAILY [facility] Finasteride (Proscar) 5 mg PO DAILY [facility] Last Admin: 09/08/19 09:46 Dose: 5 mg Furosemide (Lasix) 40 mg PO Q12H [facility] Last Admin: 09/08/19 06:45 Dose: 40 mg Hydrocortisone (Hydrocortisone 2.5% Crm) 0 gm TOP BID [facility] Last Admin: 09/08/19 09:41 Dose: 1 applic Isosorbide Mononitrate (Imdur) 30 mg PO DAILY@0730 [facility] Last Admin: 09/08/19 07:29 Dose: 30 mg Lorazepam (Ativan) 1 mg IV Q6H PRN PRN Reason: Nausea/Vomiting Glimepiride 1 Mg Tab (Pom) 0 each PO WITHBREAKFAST [facility] Last Admin: 09/08/19 09:40 Dose: 1 each Sertraline 100 Mg (TabPom) 0 each PO DAILY [facility] Last Admin: 09/08/19 09:44 Dose: 1 each Ondansetron HCl (Zofran Odt) 4 mg PO Q6H PRN PRN Reason: Nausea able to take PO Pantoprazole Sodium (Protonix) 40 mg PO ACBREAKFAST [facility] Last Admin: 09/08/19 07:30 Dose: 40 mg Polyethylene Glycol (Miralax) 8.5 - 17 gm PO DAILY PRN PRN Reason: Constipation Discontinued Medications Carvedilol (Coreg) 12.5 mg PO BID [facility] Last Admin: 09/07/19 08:27 Dose: 12.5 mg Enoxaparin Sodium (Lovenox) 30 mg SUBCUT DAILY [facility] Last Admin: 09/08/19 09:43 Dose: 30 mg Furosemide (Lasix) 40 mg IVPUSH ONETIME ONE Stop: 09/07/19 01:37 Last Admin: 09/07/19 01:56 Dose: 40 mg Furosemide (Lasix) 20 mg PO BIDDIURETIC [facility] Last Admin: 09/07/19 08:25 Dose: 20 mg Glimepiride (Amaryl) 1 mg PO WITHBREAKFAST [facility] Last Admin: 09/07/19 08:25 Dose: 1 mg Sodium Chloride (Normal Saline) 1,000 mls @ 75 mls/hr IV ASDIRECTED [facility] Last Admin: 09/07/19 04:51 Dose: 75 mls/hr Potassium Chloride (Klor-Con M20) 40 meq PO ONETIME ONE Stop: 09/08/19 09:01 Last Admin: 09/08/19 09:43 Dose: 40 meq Sertraline HCl (Zoloft) 150 mg PO DAILY [facility] Last Admin: 09/07/19 08:29 Dose: 150 mg - Exam General: Reports: Alert, Oriented, Cooperative, No Acute Distress Lungs: Reports: Clear to Auscultation, Normal Respiratory Effort, Decreased Breath Sounds Cardiovascular: Reports: Regular Rate, Regular Rhythm, Murmurs GI/Abdominal Exam: Soft, Non-Tender, No Organomegaly, No Distention Extremities: Non-Tender, No Pedal Edema
[2019-09-09] MEDS ORDERED: Enoxaparin 40 MG/0.4 ML Syringe SUBCUT SCH (09:00)
== END 2019-09-08 13:47 ==
LOC: JP.ED 00:25 → INTOOBSV 03:37 → JP.ICU 03:37 → JP.MS 09-08 07:13
PROVIDERS: ADMIT Hospitalist; ATTEND Hospitalist
DX: I11.0 Hypertensive heart disease with heart failure (principal); I13.0 Hypertensive heart and chronic kidney disease with heart failure and stage 1 through stage 4 chronic kidney disease, or unspecified chronic kidney disease; I50.23 Acute on chronic systolic (congestive) heart failure; R32 Unspecified urinary incontinence; N42.9 Disorder of prostate, unspecified; G89.29 Other chronic pain; M54.9 Dorsalgia, unspecified; E11.9 Type 2 diabetes mellitus without complications; H54.7 Unspecified visual loss; Z95.1 Presence of aortocoronary bypass graft; Z79.84 Long term (current) use of oral hypoglycemic drugs; N18.3 Chronic kidney disease, stage 3 (moderate); I25.10 Atherosclerotic heart disease of native coronary artery without angina pectoris; E11.22 Type 2 diabetes mellitus with diabetic chronic kidney disease; I34.0 Nonrheumatic mitral (valve) insufficiency; Z66 Do not resuscitate; Z88.5 Allergy status to narcotic agent; Z88.2 Allergy status to sulfonamides; Z88.0 Allergy status to penicillin; Z79.82 Long term (current) use of aspirin; Z79.899 Other long term (current) drug therapy; Z95.0 Presence of cardiac pacemaker; Z90.49 Acquired absence of other specified parts of digestive tract
CPT/HCPCS: 36415; 71045; 80053; 81001; 83880; 84484; 85025; 87086; 93005; 93010; 96360; 96361; 96372; 96374; 97161; 97530; 99284; 99285; A9270; G0378; J1650; J1940; J7030